=== PATIENT | female | born 1935 | race African-American/Black ===

== ENCOUNTER 2017-06-18 09:20 | Inpatient (IN) | payer MEDICARE, BC ==
[2017-06-18 10:34] LABS: ALT (SGPT) 16 U/L (8-55); AST (SGOT) 31 U/L (5-34); Albumin 3.2 g/dL (3.4-4.8); Alkaline Phosphatase 87 U/L (40-150); Anion Gap 17 mmol/L (10-20); BUN (Urea Nitrogen) 34 mg/dL (9.8-20.1); Bilirubin, Total 0.6 mg/dL (0.2-1.2); Calc. Creatinine Clearance 0 mL/min (70-130); Calcium 8.8 mg/dL (7.8-10.44); Carbon Dioxide 15 mmol/L (23-31); Chloride 110 mmol/L (98-107); Estimated GFR-MDRD 17; Glucose 96 mg/dL (83-110); Potassium 4.5 mmol/L (3.5-5.1); Protein, Total 7.2 g/dL (6.0-8.3); Sodium 137 mmol/L (136-145)
[2017-06-18 10:38] LABS: Hemoglobin 12.4 g/dL (12.0-16.0); Mean Corpuscular HGB CONC 30.4 g/dL (32.0-36.0); Mean Corpuscular Hemoglobin 26.7 pg (27.0-31.0); Mean Corpuscular Volume 87.7 fl (81.0-99.0); Mean Platelet Volume 8.4 fL (7.4-10.4); Platelet Count 148 thou/uL (130-400); RBC Distribution Width 13.4 % (11.5-14.5); Red Blood Cell (RBC) Count 4.66 mill/uL (4.20-5.40); White Blood Cell (WBC) Count 21.8 thou/uL (4.8-10.8)
[2017-06-18 10:48] LABS: Bacteria/HPF 4+ HPF (None Seen)
[2017-06-18 10:49] LABS: Pathc Cast-AUWi Flag 34.93 (0-2.49); Yeast-AUWi Flag 496.6 (0-25.0)
[2017-06-18 10:50] LABS: Bilirubin Small (Negative); Blood, Urine Large (Negative); Glucose, Urine (Dipstick) Negative (Negative); Leukocyte Large (Negative); Nitrite Negative (Negative); Protein, Urine (Dipstick) 100 mg/dL (Neg-Trace); Urobilinogen 0.2 mg/dL (0.2-1.0)
--- NOTE | 2017-06-18 10:51 | RAD ---
PORTABLE UPRIGHT FRONTAL CHEST RADIOGRAPH: Date: 06-18-17 Comparison: None. History: Renal insufficiency, gastroenteritis. FINDINGS: There is atherosclerotic calcification of the aorta arch. There is mild increased linear interstitial density with pulmonary hyperinflation. There is mild patchy opacity in both lung bases suggesting nonspecific volume loss or infiltrate and small bilateral pleural effusions. IMPRESSION: Mild specific bilateral lower lobe pulmonary parenchymal opacity and small bilateral pleural effusion s. No lobar consolidation or alveolar edema. POS: [facility]
[2017-06-18 10:52] LABS: Clarity Cloudy (Clear)
[2017-06-18 10:56] LABS: Band 25 % (5-11); Lymphocytes 2 % (21-51); MDiff Complete? YES; Metamyelocyte 12 % (0-0); Monocytes 1 % (0-10); Myelocyte 1 % (0-0); Neutrophil 59 % (42-75); PLT Morphology Comment Appears Adequate; Vacuoles SLIGHT
[2017-06-18 11:02] LABS: RBC/HPF GREATER THAN 50-TNTC HPF (0-3)
[2017-06-18 11:04] LABS: Hyaline Casts/LPF NONE SEEN LPF (0-3 Hyaline); Yeast-All Forms None Seen HPF (None Seen)
[2017-06-18 11:07] LABS: Crystals/HPF RARE CA OXALATE HPF (Negative)
--- NOTE | 2017-06-18 11:30 | CT ---
ABDOMEN AND PELVIS CT SCAN WITHOUT CONTRAST: HISTORY: An 82-year-old female with a history of abdominal pain with renal insufficiency and gastroenteritis w ith nausea, vomiting, and diarrhea. FINDINGS: Small bilateral pleural effusions and pleural-based parenchymal changes. The liver, gallbladder, agosto creas, spleen, and adrenal glands show no significant abnormality, as visualized. There is a moderat e sized left upper renal staghorn calculus with some mild to moderate dilatation of both right and le ft renal upper collecting systems. This staghorn calculus measures approximately 1.3 x 2.7 cm and is irregularly shaped. there is a right-sided ostomy, which is presumed to be a ureteral ileostomy. T here are some abnormally dilated small bowel loops, particularly in the mid abdomen and lower abdomen , evidence for small bowel obstruction. There is some associated wall thickening with possibly some additional component of enteritis. There is a very large, 2.8 x 3.9 cm in diameter, egg shaped ossif ication within the right lower quadrant, which appears to be within the bowel or within the ileal com ponent of the ureteral ileostomy or within some type of a neobladder. Extensive post surgical change s in the pelvis, consistent with prior cystectomy. There is some scattered minimal free intraperiton eal fluid, particularly in the right side of the abdomen. There is bilateral perirenal fat stranding and some patchy mesenteric fat stranding in the mid abdomen and moreso in the right lower quadrant. The terminal ileum appears not to be dilated. IMPRESSION: 1. Evidence for abnormally dilated small bowel with some minimal wall thickening, evidence for some small bowel obstruction, with nondilated terminal ileum seen. 2. Wall thickening could suggest, in addition, some enteritis. 3. Large, egg shaped ossification within the right lower quadrant, which appears to be within either bowel or within part of the ureteral ileostomy or within some type of a neobladder. 4. Minimal ascites, moreso on the right side. 5. Scattered fat stranding, particularly in the perirenal regions and mid and lower abdomen, again s omewhat more prominent on the right side of the abdomen and right lower quadrant. 6. Moderate dilatation of both right and left upper renal collecting systems. 7. Left upper collecting system staghorn calculus. 8. Bilateral pleural effusions and pleural-based parenchymal changes. Findings were discussed with Dr. Clarke by phone at approximately 10:40 a.m. GIOVANNY LOCKE
[2017-06-18 13:15] VITALS: BMI 23.8
[2017-06-18] MEDS ORDERED: Dextrose 5 % And 0.9 % NaCl 1,000 ML IV SCH (13:15)
[2017-06-18] MEDS ORDERED: FLU VACC TS2017-18 (>65YR) 0.5 ML SYRINGE IM ONE (13:45)
[2017-06-18] MEDS ORDERED: Lorazepam 2 MG/ML VIAL SLOW IVP PRN (13:54)
[2017-06-18] MEDS ORDERED: PIPERACILLIN IVPB PRN (14:20)
[2017-06-18] MEDS ORDERED: TAZOBACTAM IVPB PRN (14:20)
[2017-06-18] MEDS ORDERED: LEVOFLOXACIN IVPB PRN (14:20)
--- NOTE | 2017-06-18 14:35 | HP ---
DATE OF ADMISSION: 06/18/2017 CHIEF COMPLAINT: Abdominal pain. HISTORY OF PRESENT ILLNESS: This is an 82-year-old -[place] female. She is living at her [facility] independently. She developed a sudden onset of abdominal pain on Friday and she went to [facility] where she was admitted over there by her primary care physician, Dr. Yusuf, and she was started on IV antibiotics and Zosyn. She was diagnosed with urinary tract infection. Patient has urostomy bag where the urine was collected and was infected at that time and had elevated white count of 25,000 o alejandrina there and she was started on Zosyn antibiotic. Patient was having progressive persistent nausea and vomiting, unable to control, associated with some loose stools. The pain was 9/10 in intensity. According to the patient, it was on the mid epigastrium, so she was transferred to the [facility] for further evaluation. When the patient arrived in the ER, she had a CT of the abdomen which showe d an evidence of a small-bowel obstruction with possible mass-like lesion on the CT more on the left lower quadrant. Right lower quadrant which was egg-shaped opacification, which appeared more like a ureteral stone and she also had dilated small bowel with minimal wall thickening, so General Surgery was consulted and the patient was started on NG tube with intermittent suction. PAST MEDICAL HISTORY: 1. Hypertension. 2. History of bladder cancer. PAST SURGICAL HISTORY: 1. Hysterectomy. 2. History of bladder surgery in 1995. 3. History of hysterectomy. SOCIAL HISTORY: Patient was a known smoker many years ago. No history of alcohol, no history of ill icit drug use. FAMILY HISTORY: Sister had breast cancer. REVIEW OF SYSTEMS: All 12 systems are reviewed with the patient thoroughly and found to be negative at this time. Systems reviewed are HEENT, CVS, VISUAL STYLIST, respiratory, GI, , musculoskeletal, skin, inte gumentary, psychiatry. The following complete review of systems was negative, unless otherwise menti oned in the HPI or below: Constitutional: Weight loss or gain, sense of well-being, ability to cond uct usual activities, exercise tolerance. Skin/Breast: Rash, itching, changes in hair growth or los s, nail changes, breast lumps, tenderness, swelling, nipple discharge. Eyes: Vision, double vision, tearing, blind spots, pain. ENT/Mouth: Headaches (location, time of onset, duration, precipitating factors), vertigo, lightheadedness, injury. Vision, double vision, tearing, blind spots, pain, nose bleeding, colds, obstruction, discharge, dental difficulties, gingival bleeding, dentures, neck stiff ness, pain, tenderness, masses in thyroid or other areas Cardiovascular: Precordial pain, substernal distress, palpitations, syncope, dyspnea on exertion, orthopnea, nocturnal paroxysmal dyspnea, edema , cyanosis, hypertension, heart murmurs, varicosities, phlebitis, claudication. Respiratory: Pain, shortness of breath, wheezing, stridor, cough, hemoptysis, fever or night sweats. Gastrointestinal: Poor appetite, dysphagia, indigestion, abdominal pain, heartburn, eructation, nausea, vomiting, balaji temesis, jaundice, constipation, or diarrhea, abnormal stools (delmy-colored, tarry, bloody, greasy, f oul smelling), flatulence, hemorrhoids, recent changes in bowel habits. Genitourinary: Urgency, edwin quency, dysuria, nocturia, hematuria, polyuria, oliguria, unusual (or change in) color of urine, ston es, hesitancy, change in size of stream, dribbling, acute retention or incontinence, libido, potency. Musculoskeletal: Pain, swelling, redness or heat of muscles or joints, limitation, of motion, musc ular weakness, atrophy, cramps. Neurologic/Psychiatric: Convulsions, paralyses, tremor, incoordination, parasthesias, difficulties w ith memory of speech, sensory or motor disturbances, or muscular coordination (ataxia, tremor), emoti onal problems, anxiety, depression, previous psychiatric care, unusual perceptions, hallucinations. Allergy/Immunologic: Skin rash, anemia, bleeding tendency, polydipsia, polyuria, intolerance to heat or cold. ALLERGIES: No known drug allergies. HOME MEDICATIONS: 1. Amlodipine-benazepril. 2. Latanoprost. 3. Timolol 0.5% one drop each eye twice a day. PHYSICAL EXAMINATION: VITAL SIGNS: Blood pressures 128/69, heart rate is 95, respiratory rate is 18, saturations 94%. GENERAL: The patient is moderately built and moderately nourished. She does not appear to be in acu te distress at this time. Alert, oriented x3. HEENT: Atraumatic, normocephalic. PERRLA. Extraocular movements were intact. Oral mucosa pink and moist. CARDIOVASCULAR: S1, S2 normal. No murmurs, rubs or gallops. LUNGS: Bilateral air entry was equal. No wheezing, no crackles. ABDOMEN: Distended, nontender, no guarding, no rebound tenderness. Bowel sounds were reduced. MUSCULOSKELETAL: No calf tenderness. No pedal edema. EXTREMITIES: No joint tenderness, no joint swelling. SKIN: No cyanosis, no erythema, no rash, no pallor. CRANIAL NERVE SYSTEM: Cranial nerves examination II-XII intact. No focal deficits are noted. LABORATORY DATA: WBC 21.8, hemoglobin 12.4, hematocrit is 40.9, platelets are 148. Sodium 137, pota ssium 4.5, chloride is 110, BUN is 34, creatinine is 3.10, blood sugar is 96. Lactic acid is 4.4, T 31, ALT 16. ASSESSMENT: 1. Acute small-bowel obstruction. 2. Acute urinary tract infection with a urostomy bag. 3. Acute kidney injury. 4. Severe sepsis. 5. Right lower quadrant mass. PLAN: 1. Plan is to start the patient on IV antibiotics with levofloxacin, Zosyn, and to cover Pseudomonas . We will wait for the urine cultures and blood cultures. 2. We will start the patient on IV fluids at 100 mL hour and closely monitor. The patient had eleva lincoln lactic acid. We will repeat the lactic acid level to look for improvement. 3. Patient has evidence of a small-bowel obstruction. NG tube has been placed after requesting the ER physician and the General Surgery has been consulted. Oral contrast study has been ordered by Gen eral Surgery. We will closely monitor for any worsening obstruction. 4. The patient has right lower quadrant mass. We will closely monitor. Urology has been consulted t o rule out any evidence of ureteric calculi. We will follow with the recommendations at this time. The patient has worsening renal functions. We will start the patient on IV fluids and look for impro vement in the renal functions. We will plan to consult Nephrology. 5. DVT prophylaxis, Lovenox 30 mg subcutaneously daily. I spent 75 minutes with this patient.
[2017-06-18] MEDS: Ondansetron HCl/PF 4 MG/2 ML Vial IVP PRN (14:59)
[2017-06-18] MEDS: Sodium Chloride 0.9% 1,000 ML IV SCH (15:05)
[2017-06-18] MEDS: Piperacillin/Tazobactam 4.5 GM in Sodium Chloride 0.9% 100 ML IVPB SCH ×2 (15:18→23:03)
--- NOTE | 2017-06-18 16:12 | CON ---
DATE OF CONSULTATION: 06/18/2017 CONSULTING PHYSICIAN: Dr. Laure Jensen, ER physician. HISTORY OF PRESENT ILLNESS: Ms. Dorota Lo is an 82-year-old female with a history of bladder ca ncer, status post cystectomy and urostomy. Per patient, she had developed sudden onset of abdominal pain on Friday and was admitted to the hospital in [place] and started on IV antibiotics for urinary tract infection. Patient had persistent nausea and vomiting that was associated with some loose sto ols. She developed 9/10 mid epigastric pain and was transferred to [facility] for further evaluat ion. In the emergency room, she had a CT of the abdomen and pelvis, which showed dilated small bowel with minimal wall thickening as well as then large egg-shaped ossification in the right lower quadra nt, but this was unable to be differentiated as to whether or not it was in the ileostomy or the binh l. Surgical team was consulted for small-bowel obstruction and this lesion. Upon our evaluation, th e patient states that her abdominal pain has improved. She states that she has not had any episodes of nausea or vomiting since she has been in our emergency room. Last bowel movement was Friday night , she has not passed any gas today. An NG tube was placed at bedside by Dr. Santos. The patient tole rated this well. ALLERGIES: No known allergies. PAST MEDICAL HISTORY: Chronic medical illnesses, history of hypertension, and glaucoma as well as hi story of bladder cancer. PAST SURGICAL HISTORY: Cystectomy, urostomy placement, hysterectomy. SOCIAL HISTORY: The patient lives independently. She denies tobacco, alcohol, or illicit drug use. FAMILY HISTORY: Noncontributory in this age patient. REVIEW OF SYSTEMS: Negative except as indicated in the HPI. PHYSICAL EXAMINATION: VITAL SIGNS: Include blood pressure 138/54, pulse 92, respirations 16, temperature 98.2, pain 0, and O2 sat 97% on room air. GENERAL: Elderly appearing female resting in bed in no acute distress. HEAD: Normocephalic, atraumatic. EYES: Pupils are PERRLA. Extraocular movements are intact. NECK: Supple. Trachea is midline. Mucous membranes are dry. CHEST: Normal work of breathing, symmetric rise. LUNGS: Clear to auscultation bilaterally. CARDIOVASCULAR: Regular rate and rhythm, no obvious murmurs, rubs, or gallops. GASTROINTESTINAL: Soft with mild tenderness. There is a urostomy bag in place. There is no guardin g, rigidity, or signs of peritonitis. BACK: Being within normal limits. MUSCULOSKELETAL: Bilateral upper extremities and bilateral lower extremities within normal limits. Pulses are 2+ bilaterally. NEUROLOGIC: GCS of 15. No focal deficit is noted. LABORATORY DATA: WBC 21.8, hemoglobin 12.4, hematocrit 40.9, platelet count of 148. Sodium 137, pot assium 4.5, chloride 110, carbon dioxide 15, BUN 34, creatinine 3.10, glucose 96. Initial lactic aci d 4.4, repeat lactic acid 4.0, AST and ALT within normal limits. EKG with sinus rhythm and no eviden ce of STEMI. RADIOGRAPHIC FINDINGS: Chest x-ray is read as bilateral lower lobe opacities and bilateral effusions . CT of the abdomen and pelvis was read by Radiology is having evidence for abnormally dilated small bowel with minimal wall thickening in a nondilated terminal ileum, was seen a large egg-shaped ossif ication within the right lower quadrant ,which may be within the bowel or within part of the ureteral ileostomy, minimal ascites on the right, scattered fat stranding in the perirenal and mid and lower abdomen, more prominent on the right and right lower quadrant, moderate dilation of both right and le ft upper renal collecting system. Left upper collecting system staghorn calculus and bilateral pleur al effusions. ASSESSMENT: 1. Abdominal pain. 2. Possible small-bowel obstruction. 3. Abnormal ossification in the right lower quadrant. 4. History of bladder cancer, status post cystectomy and urostomy. PLAN: NG tube has been placed by Dr. Santos at bedside. We will administer oral contrast through NG tube and a repeat CT scan was delayed, images to try to differentiate the location of this large ossi fication. Bowel rest and gentle fluid IV hydration. Serial abdominal exams. There is no indication for surgical intervention at this time. Continue conservative management. This patient was seen an d evaluated with Dr. Santos and plan for treatment was discussed with the patient. All questions were answered at the time of this dictation.
--- NOTE | 2017-06-18 17:36 | CON ---
DATE OF CONSULTATION: 06/18/2017 CONSULTING PHYSICIAN: Daniel Grant MD REASON FOR CONSULTATION: Acute kidney injury. REASON FOR ADMISSION: Abdominal pain, nausea, and vomiting. HISTORY OF PRESENT ILLNESS: This is an 82-year-old female with history of hypertension, bladder cancer, and chronic kidney disease, came to the hospital with above complaints and was found to have elevated creatinine. Nephrology is consulted. The patient is having nausea, vomiting, and was found to have small- bowel obstruction and will be treated conservatively. The patient is feeling slightly better. No chest pain or palpitation. PAST MEDICAL HISTORY: Positive for hypertension and bladder cancer. PAST SURGICAL HISTORY: Hysterectomy, bladder surgery. HOME MEDICATIONS: Amlodipine and benazepril, latanoprost, and timolol. ALLERGIES: No known drug allergies. SOCIAL HISTORY: No smoking, alcohol, or illicit drug abuse. FAMILY HISTORY: No history of any kidney disease. REVIEW OF SYSTEMS: The following complete review of systems was negative, unless otherwise mentioned in the HPI or below: Constitutional: Weight loss or gain, ability to conduct usual activities. Skin: Rash, itching. Eyes: Double vision, pain. ENT/Mouth: Nose bleeding, neck stiffness, pain, tenderness. Cardiovascular: Palpitations, dyspnea on exertion, orthopnea. Respiratory: Shortness of breath, wheezing, cough, hemoptysis, fever or night sweats. Gastrointestinal: Poor appetite, abdominal pain, heartburn, nausea, vomiting, constipation, or diarrhea. Genitourinary: Urgency, frequency, dysuria, nocturia. Musculoskeletal: Pain, swelling. Neurologic/Psychiatric: Anxiety, depression. Allergy/Immunologic: Skin rash, bleeding tendency. PHYSICAL EXAMINATION: GENERAL: This is a well-built female, in no apparent distress. VITAL SIGNS: Temperature 98.2, pulse 94, respiratory rate 18, blood pressure 128/69. Musculoskeletal : No tenderness, No edema HEENT: Atraumatic normocephalic Neck: Supple Cardiovascular: S1S2 heard, Rate and rhythm regular Respiratory: Clear to auscultation Gastrointestinal: Abdomen is soft Dermatologic : No skin rash Neurologic: Alert and awake and oriented X3 No focal neurologic deficits. Moving all the extremities. Psychiatric: Mood and affect normal LABORATORY DATA: Potassium is 4.5, BUN is 34, and creatinine is 3.1. ASSESSMENT AND PLAN: 1. Acute kidney injury on chronic kidney disease, most likely from volume depletion. Agree with hydration and renally dose all the medications. Avoid nephrotoxins. Continue antibiotics and supportive care. 2. Staghorn calculus with dilated collecting system seen in the CT. We will consult Urology. 3. Acidosis, most likely chronic secondary to the urostomy. 4. Lactic acidosis. Continue supportive care. 5. Hypoalbuminemia. 6. Leukocytosis. 7. Continue supportive care. Continue on IV fluids. Rule out infection. Continue antibiotics. We will consult Urology. Thank you for the consult. SUSANNA
[2017-06-18] MEDS ORDERED: Famotidine 40 MG/4 ML VIAL SLOW IVP SCH (21:00)
[2017-06-18] MEDS ORDERED: Famotidine/PF 20 mg/2ml Vial SLOW IVP SCH (21:00)
--- NOTE | 2017-06-18 22:01 | PRG ---
DATE OF SERVICE: 06/18/2017 SUBJECTIVE: The patient is currently on the medicine floor. The patient warrants consultation for p ossible small-bowel obstruction and a calcific mass noted in her abdomen. The patient has just retur yarelis from a repeat delayed CT. We are awaiting the results from Radiology at this time. Otherwise, t he patient states that her pain is controlled and has little nausea. The patient did say that she du d 2-3 large bouts of emesis earlier today. She states that she has not passed flatus yet. PHYSICAL EXAMINATION: VITAL SIGNS: Temperature is 98.2, heart rate 95, blood pressure 128/69, respirations 18, oxygen satu ration 94% on room air. ABDOMEN: Soft and flat with very minimal tenderness and bowel sounds are hypoactive. ASSESSMENT: 1. Abdominal pain. 2. Possible small-bowel obstruction. 3. Calcified mass in the right lower quadrant. PLAN: Will be to continue intermittent suction, pain control, IV hydration and await CT interpretati on and then continue surgical plan at that time.
--- NOTE | 2017-06-18 22:28 | CON ---
DATE OF CONSULTATION: 06/18/2017 REASON FOR CONSULTATION: Prior history of bladder cancer. HISTORY OF PRESENT ILLNESS: Ms. Lo is an 82-year-old female followed by Dr. Herrera in [place] who has a history of bladder cancer resulting in cystectomy and ileal conduit urinary diversion in 1998. She presented to the hospital today with complaints of nausea, vomiting, and abdominal pain. She was initially evaluated in [place] [facility]. She was transferred to [facility] in [place]. CT scan in the emergency room demonstrated a left-sided staghorn calculus, dilated loops of small bowel and a large calcification intraabdominally. There is some mild hydronephrosis bilaterally consistent with her urinary diversion via ileal conduit. A urine culture was positive when she was seen at the ER in [place], but it was taken from her ileostomy bag. PAST MEDICAL HISTORY: Bladder cancer, hypertension. PAST SURGICAL HISTORY: Cystectomy with ileal conduit urinary diversion in 1998 , hysterectomy. SOCIAL HISTORY: She is an ex-smoker. Denies excessive alcohol use. FAMILY HISTORY: Noncontributory. REVIEW OF SYSTEMS: Respiratory: No shortness of breath. Cardiovascular: No chest pain or palpitations. Gastrointestinal: Abdominal pain with nausea and vomiting as mentioned in the history of present illness. Genitourinary: Please see history of present illness. Neurologic: No history of stroke. ALLERGIES: No known drug allergies. MEDICATIONS AT HOME: Amlodipine, latanoprost, timolol eyedrops. PHYSICAL EXAMINATION: GENERAL: She is awake and alert. She has an NG tube in place at this time. VITAL SIGNS: Blood pressure 132/82, respiratory rate 18, heart rate 94. GENERAL: She is a well-nourished, does not appear to be in any acute distress. HEENT: She has a nasogastric tube in place at this time. CARDIOVASCULAR: Regular rate and rhythm. No murmurs. ABDOMEN: Distended. There are no peritoneal signs. Ileal conduit appears healthy. LABORATORY DATA: Creatinine 3.1. White blood cell count 21.8, hemoglobin 12.4 , hematocrit 40.9. IMPRESSION: Ms. Lo is an 82-year-old female who receives her urologic care from Dr. Herrera in [place] who is status post cystectomy and ileal conduit urinary diversion almost 20 years ago. As such, it is unlikely she has persistent or recurrent bladder cancer based on a 20 year history of this disease. She does have calcifications, one in the left kidney. The calcification in the abdomen is likely a large stone in her ileal conduit. She has the expected amount of hydroureteronephrosis seen in patients with ileal conduit. I am unsure of what her baseline creatinine is. She is scheduled to undergo a CT scan later to confirm that the large calcification of the abdomen is not related to her bowel obstruction. I suspect it is within the ileal conduit. This can be managed as an outpatient and possibly endoscopically through the stoma. If she would go to the operating room for a bowel obstruction, it could also be removed by making a small incision in her ileal conduit removing the stone and then closing the ileal conduit. I am in agreement with her current recommendations, which is conservative management with NG tube drainage, hydration and time. There is no indication for emergent urologic intervention. I believe she is followed by Urologist in [place]. SUSANNA
[2017-06-18] MEDS: Piperacillin/Tazobactam 2.25 GM in Sodium Chloride 0.9% 100 ML IVPB SCH (22:52)
[2017-06-19] MEDS: Sodium Chloride 0.9% 1,000 ML IV SCH ×3 (02:34→20:48)
[2017-06-19] MEDS: Piperacillin/Tazobactam 2.25 GM in Sodium Chloride 0.9% 100 ML IVPB SCH ×4 (04:05→20:49)
[2017-06-19 04:42] LABS: Anion Gap 15 mmol/L (10-20); BUN (Urea Nitrogen) 36 mg/dL (9.8-20.1); Calc. Creatinine Clearance 22 mL/min (70-130); Calcium 8.5 mg/dL (7.8-10.44); Carbon Dioxide 19 mmol/L (23-31); Chloride 112 mmol/L (98-107); Estimated GFR-MDRD 27; Glucose 65 mg/dL (83-110); Potassium 4.5 mmol/L (3.5-5.1); Sodium 141 mmol/L (136-145)
[2017-06-19 05:30] LABS: Band 30 % (5-11); Burr Cells MODERATE= 6-15 cells (100X) (0-1/hpf); Hemoglobin 11.1 g/dL (12.0-16.0); Hypochromia SLIGHT = 6-15 cells (100X) (0-5/hpf); Lymphocytes 3 % (21-51); MDiff Complete? YES; Mean Corpuscular HGB CONC 31.3 g/dL (32.0-36.0); Mean Corpuscular Hemoglobin 26.9 pg (27.0-31.0); Mean Corpuscular Volume 85.9 fl (81.0-99.0); Mean Platelet Volume 9.3 fL (7.4-10.4); Metamyelocyte 5 % (0-0); Monocytes 4 % (0-10); Neutrophil 58 % (42-75); PLT Morphology Comment Appears Decreased; Platelet Count 114 thou/uL (130-400); RBC Distribution Width 13.2 % (11.5-14.5); Red Blood Cell (RBC) Count 4.11 mill/uL (4.20-5.40); White Blood Cell (WBC) Count 27.3 thou/uL (4.8-10.8)
--- NOTE | 2017-06-19 07:31 | CT ---
CT ABDOMEN NONCONTRAST CT PELVIS NONCONTRAST: Date: 06/18/17 HISTORY: 82-year-old female with general abdominal pain, nausea, emesis, and diarrhea. A large calcification w as found within the right pelvic inlet on CT earlier today on 06/18/17 at 1014 hours. TECHNIQUE: Water soluble oral contrast was given, and CT was performed at 1611 hours, then repeated at 2035 hour s, and finally at 2344 hours, to allow the oral contrast material to reach the calcific mass. FINDINGS: Unfortunately, the oral contrast material does not reach the large, smoothly circumscribed, ovoid 40 x 25 x 25 mm calcification within the right lower quadrant of the abdominal cavity at the pelvic inle t. As previously stated, there is much fat stranding within the right lower quadrant of the abdominal cavity. There is an ostomy at the right lower quadrant. There are multiple surgical clips along the bilateral iliac chains. There is mild bilateral hydronephrosis. The oral contrast material has not pr ogressed between the 2035 hours study and 2344 hours study. The patient has reportedly been on suctio n of the nasogastric tube. Again noted is the staghorn calculus in the left renal upper pole. Small b ilateral pleural effusions. Dilated small bowel loops. Nondilated terminal ileum. IMPRESSION: 1. Large, 40 mm, calcification within the right lower quadrant abdominal cavity at the pelvic inlet. It is uncertain whether this represents a large calculus within an ileal pouch neobladder, or repres ents gallstone ileus, causing mechanical distal small bowel obstruction. 2. Either way, the dilated small bowel loops represent evidence for small bowel obstruction. 3. Right lower quadrant ostomy. 4. Mild bilateral hydronephrosis. 5. Small bilateral pleural effusions. 6. Evidence for previous iliac chain lymph node dissection. POS: [facility]
[2017-06-19] MEDS ORDERED: Piperacillin/Tazobactam 4.5 GM in Sodium Chloride 0.9% 100 ML IVPB SCH (09:00)
--- NOTE | 2017-06-19 10:07 | RAD ---
KUB: Date: 06/19/17 HISTORY: Small bowel obstruction. COMPARISON: CT examination performed yesterday. FINDINGS: A staghorn type calculus involving the upper pole of the left kidney is noted. There is an ostomy pre sent in the right lower quadrant. There is a calculus in the right lower quadrant that has the appear ance of a bladder-type calculus and measures 3.3 cm in size. There are postop prostatectomy changes. The dilatation to the small bowel noted on the CT examination is difficult to appreciate other than s ome of the proximal small bowel and does appear to be slightly distended. IMPRESSION: Mild distention of some of the proximal small bowel loops. This may be slightly less pronounced than on the prior CT study. POS: REE
[2017-06-19] MEDS ORDERED: GASTROGRAFIN 30 ML BOT ONE (10:16)
[2017-06-19] MEDS: Enoxaparin Sodium 30 MG/0.3 ML SYRINGE SC SCH (13:08)
--- NOTE | 2017-06-19 14:37 | PDOC.PN ---
- Subjective Encounter Start Date: 06/19/17 Encounter Start Time: 10:00 Patient is seen today, Alert and oriented, She is On NG tube with intermittant suction, She is getting hard to find viens for IV line. - Objective Resuscitation Status: Resuscitation Status FULL:Full Resuscitation MAR Reviewed: Yes Vital Signs & Weight: Vital Signs (12 hours) Temp Pulse Resp BP Pulse Ox 06/19/17 12:00 98.4 F 97 24 H 138/62 99 06/19/17 08:00 98.5 F 95 24 H 123/75 96 06/19/17 04:40 99.1 F 101 H 22 H 124/66 98 Weight Admit Weight 152 lb Weight 152 lb I&O: 06/18/17 06/19/17 06/20/17 06:59 06:59 06:59 Intake Total 450 Output Total 800 Balance -350 Result Diagrams: 06/19/17 03:33 06/19/17 03:33 Radiology Reviewed by me: Yes Phys Exam - Physical Examination HEENT: PERRLA, moist MMs Neck: no nodes, no JVD Respiratory: no wheezing, no rales Cardiovascular: RRR, no significant murmur Diminished BS, Non tender. 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 Will plan to change the Neobladder this admission, (2) SBO (small bowel obstruction) Code(s): K56.609 - UNSP INTESTNL OBST, UNSP TO PARTIAL VERSUS COMPLETE OBST Status: Acute Comment: Will continue with NG tube, general Surgery is on Board, no surgery planned yet. (3) Other septicemia due to Gram-negative organism Code(s): A41.59 - OTHER GRAM-NEGATIVE SEPSIS Status: Acute Comment: PT is on levo and Zosyn, source of infection likely urine. Waiting for senstitvitis, WBC worseing noted. 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 - Plan cont current plan of care, continue antibiotics, PT/OT, rn social services, incentive spirometry, DVT proph w/lovenox * . - Discharge Day Encounter end time: 10:35 Review of Systems - Review of Systems Constitutional: negative: fever, chills, sweats, weakness, malaise, other Eyes: negative: Pain, Vision Change, Conjunctivae Inflammation, Eyelid Inflammation, Redness, Other ENT: negative: Ear Pain, Ear Discharge, Nose Pain, Nose Discharge, Nose Congestion, Mouth Pain, Mouth Swelling, Throat Pain, Throat Swelling, Other Respiratory: negative: Cough, Dry, Shortness of Breath, Hemoptysis, SOB with Excertion, Pleuritic Pain, Sputum, Wheezing Cardiovascular: negative: chest pain, palpitations, orthopnea, paroxysmal nocturnal dyspnea, edema, light headedness, other Gastrointestinal: Nausea, Abdominal Pain Genitourinary: negative: Dysuria, Frequency, Incontinence, Hematuria, Retention , Other Musculoskeletal: negative: Neck Pain, Shoulder Pain, Arm Pain, Back Pain, Hand Pain, Leg Pain, Foot Pain, Other Skin: negative: Rash, Lesions, Brad, Bruising, Other - Medications/Allergies Allergies/Adverse Reactions: Allergies Allergy/AdvReac Type Severity Reaction Status Date / Time No Allergy Information Allergy Verified 06/17/17 14:51 Available Medications: Current Medications Enoxaparin Sodium (Lovenox) 30 mg SC 0900 [facility] Last Admin: 06/19/17 13:08 Dose: 30 mg Famotidine (Pepcid) 20 mg SLOW IVP 2100 [facility] Last Admin: 06/18/17 22:51 Dose: 20 mg Sodium Chloride (Normal Saline 0.9%) 1,000 mls @ 100 mls/hr IV .Q10H [facility] Last Admin: 06/19/17 08:00 Dose: 1,000 mls Levofloxacin 500 mg/ Device 100 mls @ 100 mls/hr IVPB Q2D@1400 [facility] Piperacillin Sod/Tazobactam (Sod 2.25 gm/ Sodium Chloride) 100 mls @ 200 mls/ hr IVPB 0400,1000,1600,2200 [facility] Last Admin: 06/19/17 10:00 Dose: Not Given Lorazepam (Ativan) 0.5 mg SLOW IVP Q6H PRN PRN Reason: Anxiety/Agitation Last Admin: 06/18/17 15:12 Dose: 0.5 mg Miscellaneous Medication (Pharmacy To Dose) 0 each IVPB PRN PRN PRN Reason: RENAL DOSING Ondansetron HCl (Zofran) 4 mg IVP Q6H PRN PRN Reason: Nausea/Vomiting Last Admin: 06/18/17 14:59 Dose: 4 mg Sodium Chloride (Flush - Normal Saline) 10 ml IVF Q12HR [facility] Last Admin: 06/19/17 10:45 Dose: Not Given Sodium Chloride (Flush - Normal Saline) 10 ml IVF PRN PRN PRN Reason: Saline Flush
--- NOTE | 2017-06-19 14:57 | RAD ---
SMALL BOWEL FOLLOW THROUGH: Date: 06/19/17 COMPARISON: None. HISTORY: Evaluate small bowel obstruction. FINDINGS: The patient was administered Gastrografin via a nasogastric tube. The initial 15 minutes after admini stration demonstrates contrast media within the stomach and dilated loops of small bowel in the mid a bdomen. At 30 minutes, there is persistent contrast media within the stomach and proximal dilated sma ll bowel. At 45 minutes, contrast media has begun to extend beyond the proximal dilated small bowel a nd extends into additional dilated small bowel within the left mid abdomen. At 1 hour, contrast media fills numerous markedly dilated loops of small bowel in the pelvis, the mid abdomen, and the left ab domen. A 1.5 hours, there is little change when compared to the 1 hour image, with persistent contras t media throughout numerous dilated small bowel throughout the abdomen/pelvis. However, at 2.5 hours, the contrast media has reached the colon, arguing against complete small bowel obstruction and sugge sting significant partial small bowel obstruction. There are numerous clips in the pelvis. There is a lamellated prominent right lower quadrant calcific ation measuring 3.2 cm, better evaluated on recent CT. IMPRESSION: Delayed transit time of contrast media from stomach to distal colon, suggesting partial small bowel o bstruction. Multiple prominent dilated loops of small bowel seen throughout abdomen/pelvis. Recommend continued follow-up imaging via KUB on 06/20/17 to assess for contrast transit. POS: REE
--- NOTE | 2017-06-19 18:12 | PRG ---
DATE OF SERVICE: 06/19/2017 ATTENDING PHYSICIAN: Dr. Ilya Santos. SUBJECTIVE: Mrs. Lo is an 82-year-old female for which Surgery was consulted yesterday for conc vaibhav for a small-bowel obstruction. The patient was evaluated in the emergency room and found to have dilated loops of small bowel with a large egg-shaped ossification in the right lower quadrant. The patient has a history of bladder cancer resulting in cystectomy with an ileal conduit urinary diversi on. It was unclear whether or not this calcification was in the bowel or in the ileal conduit. Urol ogy and Nephrology were both consulted as well. She had an NG tube placed at bedside by Dr. Santos. She was scheduled for a small bowel follow through this morning. The patient was not in the hospital room on rounds this morning and so the examination took place in the early afternoon after her small bowel follow through has been completed. On exam today, the patient is alert and oriented. She has an NG tube in place that is set to suction . It is produced approximately 700 mL of bilious fluid since this morning and the patient reports no complaints on exam. OBJECTIVE: VITAL SIGNS: BP 124/66, pulse 101, temperature 99.1, respirations 22, O2 sat 98% on room air. GENERAL: An elderly-appearing adult female in no acute distress. RESPIRATORY: Breath sounds are clear to auscultation bilaterally with normal effort. CARDIOVASCULAR: She has regular rate and rhythm with no murmurs, gallops or rubs. ABDOMEN: Her abdomen is soft. She has a urostomy bag in place. EXTREMITIES: The patient is moving all extremities. She is neurovascularly intact x4. NEUROLOGIC: The patient's GCS is 15. She has no focal deficits. LABORATORY DATA: Hematology: WBC is 27.3, hemoglobin 11.1, hematocrit 35.3, platelets 114. [place] ry: Sodium 141, potassium 4.5, chloride 112, bicarbonate 19, BUN 36, creatinine 2.10, glucose 65, ca lcium 8.5. IMAGING: Delayed transit of contrast media from stomach to distal colon, suggesting partial small-gagandeep wel obstruction. Multiple prominent dilated loops of small bowel seen throughout the abdomen/pelvis. Recommend continued followup imaging via KUB on 06/20/2017 to assess for contrast transit. ASSESSMENT: 1. Possible partial small-bowel obstruction. 2. Abnormal ossification in the right lower quadrant, likely residing in her ileal conduit. 3. Acute kidney injury on chronic kidney disease. 4. Lactic acidosis. 5. Leukocytosis. 6. History of bladder cancer, status post cystectomy and urostomy. PLAN: 1. There is no surgical indication for this patient at this time. 2. We will clamp her NG tube and do a trial of clear liquids. If the patient is able to tolerate cl ears, we will remove the NG tube tomorrow. If she becomes symptomatic with nausea and vomiting, we w ill unclamp the NG tube and put it back to suction. 3. Lovenox for DVT prophylaxis. 4. IV Pepcid for gastritis prophylaxis. This patient was seen and examined with Dr. Ilya Santos on rounds, who agrees with the assessment a nd plan.
[2017-06-19] MEDS: Famotidine 40 MG/4 ML VIAL SLOW IVP SCH (20:48)
--- NOTE | 2017-06-20 00:37 | PRG ---
DATE OF SERVICE: 06/18/2017 SUBJECTIVE: No new complaints. PHYSICAL EXAMINATION: VITAL SIGNS: Blood pressure 138/62, temperature 98.4, respiratory rate 24, O2 sat 99% on room air, p ulse 97. ABDOMEN: Soft, no peritoneal signs. LABORATORY DATA: Creatinine 2.1 (3.1 on 06/18/2017). IMPRESSION: Ms. Lo has had a small bowel follow through study. It appears that she has a parti al small-bowel obstruction. No change with regard to the urinary tract. She has a left staghorn katty culus and a probable calculus in the ileal conduit itself. There is a normal and typical amount of u rinary tract dilatation seen in patients with ileal conduits. Her creatinine is improving. RECOMMENDATIONS: No new recommendations at this time.
[2017-06-20] MEDS: Acetaminophen 325 MG TAB PO PRN (03:09)
[2017-06-20] MEDS: Piperacillin/Tazobactam 2.25 GM in Sodium Chloride 0.9% 100 ML IVPB SCH ×2 (03:12→09:53)
[2017-06-20 05:38] LABS: Anion Gap 13 mmol/L (10-20); BUN (Urea Nitrogen) 30 mg/dL (9.8-20.1); Calc. Creatinine Clearance 36 mL/min (70-130); Calcium 8.6 mg/dL (7.8-10.44); Carbon Dioxide 21 mmol/L (23-31); Chloride 118 mmol/L (98-107); Estimated GFR-MDRD 48; Glucose 97 mg/dL (83-110); Potassium 3.3 mmol/L (3.5-5.1); Sodium 149 mmol/L (136-145)
[2017-06-20 05:41] LABS: Band 19 % (5-11); Hemoglobin 11.4 g/dL (12.0-16.0); Lymphocytes 3 % (21-51); MDiff Complete? YES; Mean Corpuscular HGB CONC 31.6 g/dL (32.0-36.0); Mean Corpuscular Hemoglobin 26.1 pg (27.0-31.0); Mean Corpuscular Volume 82.6 fl (81.0-99.0); Mean Platelet Volume 9.4 fL (7.4-10.4); Monocytes 2 % (0-10); Neutrophil 76 % (42-75); PLT Morphology Comment Appears Decreased; Platelet Count 106 thou/uL (130-400); RBC Distribution Width 13.3 % (11.5-14.5); Red Blood Cell (RBC) Count 4.36 mill/uL (4.20-5.40); White Blood Cell (WBC) Count 32.2 thou/uL (4.8-10.8)
--- NOTE | 2017-06-20 08:46 | PRG ---
DATE OF SERVICE: 06/19/2017 SUBJECTIVE: Patient was seen and examined at bedside and overnight events noted. Patient denies any shortness of breath or chest pain or palpitation. No history of nausea or vomitin g or diarrhea or fever or chills or cramps. OBJECTIVE: GENERAL: This is a well-built male, in no apparent distress. VITAL SIGNS: Temperature 98.4, pulse 97, respiratory rate 18, blood pressure 138/62. HEENT: Atraumatic, normocephalic. Oral mucosa is moist NECK: Supple. CARDIOVASCULAR: S1 and S2 heard. Rate and rhythm regular. RESPIRATORY: Clear to auscultation. GASTROINTESTINAL: Abdomen is soft. MUSCULOSKELETAL: No tenderness. No edema. DERMATOLOGIC: No skin rash. NEUROLOGIC: Alert and awake and oriented X3, No focal neurologic deficits. Moving all the extremitie s. PSYCHIATRIC: Mood and affect normal. LABORATORY DATA: Potassium 4.5, BUN 36, creatinine 2.1. ASSESSMENT AND PLAN: 1. Acute kidney injury on chronic kidney disease. Renal function with good improvement. Creatinine is 2.1 from 3.1. Avoid nephrotoxins and continue supportive care. 2. Staghorn calculus, continue on antibiotics. 3. Lactic acidosis. 4. Hypoalbuminemia. 5. Leukocytosis. 6. Hypertension, stable. 7. Anemia, mild. Plan is to continue supportive care. Renal function is better. We will follow. Review of the recor ds, baseline creatinine is around 1.7.
[2017-06-20] MEDS: Enoxaparin Sodium 30 MG/0.3 ML SYRINGE SC SCH (09:53)
[2017-06-20] MEDS: Sodium Chloride 0.9% 1,000 ML IV SCH (09:54)
[2017-06-20] MEDS ORDERED: Meropenem 2 GM, Admixture Fee 1 EACH in Sodium Chloride 0.9% 100 ML IVPB SCH (14:00)
[2017-06-20] MEDS ORDERED: Meropenem 2 GM in Admixture Fee 1 EACH IVPB SCH (14:00)
--- NOTE | 2017-06-20 15:16 | PDOC.PN ---
- Subjective Encounter Start Date: 06/20/17 Encounter Start Time: 12:00 Patient is seen today, alert and oriented. No other concern noted. - Objective Resuscitation Status: Resuscitation Status FULL:Full Resuscitation MAR Reviewed: Yes Vital Signs & Weight: Vital Signs (12 hours) Temp Pulse Resp BP BP BP Pulse Ox 06/20/17 08:37 145/68 H 06/20/17 08:00 98.5 F 82 18 128/78 100 06/20/17 04:00 98.4 F 87 20 170/93 H 96 Weight Admit Weight 152 lb Weight 152 lb I&O: 06/19/17 06/20/17 06/21/17 06:59 06:59 06:59 Intake Total 450 640 Output Total 800 1300 Balance -350 -660 Result Diagrams: 06/20/17 04:38 06/20/17 04:38 Radiology Reviewed by me: Yes Phys Exam - Physical Examination HEENT: PERRLA, moist MMs Neck: no nodes, no JVD Respiratory: no wheezing, no rales Cardiovascular: RRR, no significant murmur Gastrointestinal: soft, non-tender, no distention diminished bowel sounds. 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 Will plan to change the Neobladder this admission, (2) SBO (small bowel obstruction) Code(s): K56.609 - UNSP INTESTNL OBST, UNSP TO PARTIAL VERSUS COMPLETE OBST Status: Acute Comment: Will continue with NG tube, general Surgery is on Board, no surgery planned yet. Discontinued Intermittant suction. (3) Other septicemia due to Gram-negative organism Code(s): A41.59 - OTHER GRAM-NEGATIVE SEPSIS Status: Acute Comment: PT is on levo and Zosyn, worseing WBC, will change to meropenam, Wait for Urine Sensitivities (4) Right lower quadrant abdominal mass Code(s): R19.03 - RIGHT LOWER QUADRANT ABDOMINAL SWELLING, MASS AND LUMP Status: Acute Comment: Likely Ileo conduit Obstruction per Urology, 4cm mass, Will follow Urology recommedations, (5) Moderate dehydration Code(s): E86.0 - DEHYDRATION Status: Acute Comment: Continue with IV fluids , Good urine output. - Plan cont current plan of care, plan discussed w/ family, bahena catheter, continue antibiotics, PT/OT, respiratory therapy, DVT proph w/lovenox * . - Discharge Day Encounter end time: 12:35 Review of Systems - Review of Systems Eyes: negative: Pain, Vision Change, Conjunctivae Inflammation, Eyelid Inflammation, Redness, Other ENT: negative: Ear Pain, Ear Discharge, Nose Pain, Nose Discharge, Nose Congestion, Mouth Pain, Mouth Swelling, Throat Pain, Throat Swelling, Other Respiratory: negative: Cough, Dry, Shortness of Breath, Hemoptysis, SOB with Excertion, Pleuritic Pain, Sputum, Wheezing Cardiovascular: negative: chest pain, palpitations, orthopnea, paroxysmal nocturnal dyspnea, edema, light headedness, other Gastrointestinal: Nausea, Vomiting Genitourinary: negative: Dysuria, Frequency, Incontinence, Hematuria, Retention , Other Musculoskeletal: negative: Neck Pain, Shoulder Pain, Arm Pain, Back Pain, Hand Pain, Leg Pain, Foot Pain, Other - Medications/Allergies Allergies/Adverse Reactions: Allergies Allergy/AdvReac Type Severity Reaction Status Date / Time No Allergy Information Allergy Verified 06/17/17 14:51 Available Medications: Current Medications Acetaminophen (Tylenol) 650 mg PO Q6H PRN PRN Reason: Headache/Fever or Pain Last Admin: 06/20/17 03:09 Dose: 650 mg Enoxaparin Sodium (Lovenox) 30 mg SC 0900 [facility] Last Admin: 06/20/17 09:53 Dose: 30 mg Famotidine (Pepcid) 20 mg SLOW IVP Q24HR [facility] Last Admin: 06/19/17 20:48 Dose: 20 mg Levofloxacin 500 mg/ Device 100 mls @ 100 mls/hr IVPB Q2D@1400 [facility] Last Admin: 06/20/17 13:43 Dose: 100 mls Meropenem 2 gm/ Miscellaneous Medication 1 each/ Sodium Chloride 100 mls @ 200 mls/hr IVPB Q8HR [facility] Stop: 06/20/17 17:00 Meropenem 2 gm/ Miscellaneous Medication 1 each/ Sodium Chloride 100 mls @ 200 mls/hr IVPB 0200,1400 [facility] Lorazepam (Ativan) 0.5 mg SLOW IVP Q6H PRN PRN Reason: Anxiety/Agitation Last Admin: 06/18/17 15:12 Dose: 0.5 mg Miscellaneous Medication (Pharmacy To Dose) 0 each IVPB PRN PRN PRN Reason: RENAL DOSING Ondansetron HCl (Zofran) 4 mg IVP Q6H PRN PRN Reason: Nausea/Vomiting Last Admin: 06/18/17 14:59 Dose: 4 mg Sodium Chloride (Flush - Normal Saline) 10 ml IVF Q12HR [facility] Last Admin: 06/20/17 09:53 Dose: Not Given Sodium Chloride (Flush - Normal Saline) 10 ml IVF PRN PRN PRN Reason: Saline Flush
--- NOTE | 2017-06-20 17:57 | PRG ---
DATE OF SERVICE: 06/20/2017 ATTENDING PHYSICIAN: Dr. Santos. SUBJECTIVE: The patient is an 82-year-old female for which Surgery has been consulted for concern for a small-bowel obstruction. She was admitted to the hospital overnight with NG tube in place. She had a trial of clear liquid diet yesterday. She has reported that she has started having bowel movements and passing flatus this morning. She was able to tolerate sips of clears with no nausea. OBJECTIVE: VITAL SIGNS: Temperature 98.5, pulse 95, respirations 22, O2 sats 96% on room air, blood pressure 173/75. GENERAL: Elderly appearing female, frail appearing, no acute distress. LUNGS: Bilateral breath sounds clear to auscultation. ABDOMEN: Soft, nontender, nondistended. GENITOURINARY: Urostomy in place. ASSESSMENT: 1. Partial small-bowel obstruction, resolved. 2. Tolerated a trial of clear liquid. PLAN: Discontinue NG tube. Clear liquid diet today, may advance tomorrow if patient continues to tolerate clears. Patient was reviewed with Dr. Santos who agrees with plan. [facility]
[2017-06-20] MEDS: Famotidine 40 MG/4 ML VIAL SLOW IVP SCH (19:47)
--- NOTE | 2017-06-20 20:04 | PRG ---
DATE OF SERVICE: 06/20/2017 SUBJECTIVE: Patient was seen and examined at bedside and overnight events noted. Patient denies any shortness of breath or chest pain or palpitation. No history of nausea or vomiting or diarrhea or f ever or chills or cramps. OBJECTIVE: GENERAL: This is a well-built female, in no apparent distress. VITAL SIGNS: Temperature 98.5, pulse 82, respiratory rate 18, blood pressure 128/78. HEENT: Atraumatic, normocephalic, oral mucosa is moist. NECK: Supple. CARDIOVASCULAR: S1, S2 heard, rate and rhythm regular. RESPIRATORY: Clear to auscultation. GASTROINTESTINAL: Abdomen is soft. MUSCULOSKELETAL: No tenderness, no edema. DERMATOLOGIC: No skin rash. NEUROLOGIC: Alert and awake and oriented x3. No focal neurologic deficits. Moving all the extremit ies. PSYCHIATRIC: Mood and affect normal. LABORATORY DATA: Potassium is 3.3, BUN is 30, creatinine is 1.29. ASSESSMENT AND PLAN: 1. Acute kidney injury on chronic kidney disease. Renal function is much better. Creatinine is 1.2 from 3.1 on admission. 2. Lactic acidosis. 3. Hypoalbuminemia. 4. Leukocytosis. 5. Hypertension, stable. Continue supportive care. Renal function is better. We will follow.
--- NOTE | 2017-06-20 22:44 | PRG ---
DATE OF SERVICE: 06/20/2017 SUBJECTIVE: Patient is feeling better, has passed gas, and had a small bowel movement today. NG tub e has been removed. OBJECTIVE: VITAL SIGNS: Temperature 98.5, blood pressure 145/68, pulse 82, respiratory rate 18. ABDOMEN: Soft, nontender. No peritoneal signs. Ileostomy stoma, pink. LABORATORY DATA: Creatinine 1.3. White blood cell count 32. IMPRESSION: Ms. Lo is an 82-year-old female with partial small-bowel obstruction. From urologi c standpoint, she has a history of cystectomy almost 20 years ago with ileal conduit urinary diversio n. She has a left-sided staghorn calculus and what appears to be a large calcification within her il eal conduit. Her kidney function is normal with expected amount of ureteral renal dilatation is seen and ileal conduits. She is followed by Dr. Herrera in [place]. No further urologic recommendations at this time.
[2017-06-21] MEDS: Meropenem 2 GM, Admixture Fee 1 EACH in Sodium Chloride 0.9% 100 ML IVPB SCH ×2 (02:10→13:40)
[2017-06-21] MEDS: Acetaminophen 325 MG TAB PO PRN ×2 (03:27→21:08)
[2017-06-21 06:06] LABS: Anion Gap 10 mmol/L (10-20); BUN (Urea Nitrogen) 22 mg/dL (9.8-20.1); Calc. Creatinine Clearance 50 mL/min (70-130); Calcium 8.5 mg/dL (7.8-10.44); Carbon Dioxide 23 mmol/L (23-31); Chloride 114 mmol/L (98-107); Estimated GFR-MDRD 71; Glucose 96 mg/dL (83-110); Sodium 144 mmol/L (136-145)
[2017-06-21 06:09] LABS: Potassium 2.8 mmol/L (3.5-5.1)
[2017-06-21] MEDS: Enoxaparin Sodium 30 MG/0.3 ML SYRINGE SC SCH (08:26)
[2017-06-21] MEDS: Potassium Chloride 20 MEQ TAB PO SCH ×3 (08:26→16:18)
--- NOTE | 2017-06-21 10:01 | PRG ---
DATE OF SERVICE: 06/21/2017 ATTENDING PHYSICIAN: Dr. Santos. SUBJECTIVE: Ms. Lo is an 82-year-old female who was admitted to the hospital with possible small-bowel obstruction. Her NG tube was clamped 3 days ago and she was started on trials of clear liquids. Yesterday, NG tube was discontinued. She tolerated clear liquid diet all day. She began having bowel movements. She had no abdominal pain. She was advanced to regular diet. OBJECTIVE: VITAL SIGNS: Temperature 97.7, pulse 76, respirations 20, O2 sat 100% on room air, blood pressure 155/77. GENERAL: Elderly female seen ambulating around in the room without assistance. Nontoxic appearing, no acute distress. LUNGS: Bilateral breath sounds clear. ABDOMEN: Soft, nontender, and nondistended. GENITOURINARY: Urostomy in place. ASSESSMENT: 1. Partial small-bowel obstruction, resolved. 2. Tolerating regular diet. PLAN: Small-bowel obstruction has resolved. There is no need for a surgical intervention. The patient is having normal bowel function and tolerating regular diet. Trauma Surgery will sign off at this time. If we can be of further assistance, please reconsult us. Patient was reviewed with Dr. Santos who agrees with plan. [facility]
[2017-06-21 12:54] LABS: Anion Gap 11 mmol/L (10-20); BUN (Urea Nitrogen) 23 mg/dL (9.8-20.1); Calc. Creatinine Clearance 45 mL/min (70-130); Calcium 9.1 mg/dL (7.8-10.44); Carbon Dioxide 23 mmol/L (23-31); Chloride 110 mmol/L (98-107); Estimated GFR-MDRD 62; Glucose 100 mg/dL (83-110); Potassium 3.3 mmol/L (3.5-5.1); Sodium 141 mmol/L (136-145)
[2017-06-21 12:55] LABS: Band 8 % (5-11); Hemoglobin 12.3 g/dL (12.0-16.0); Lymphocytes 1 % (21-51); MDiff Complete? YES; Mean Corpuscular HGB CONC 31.9 g/dL (32.0-36.0); Mean Corpuscular Hemoglobin 26.8 pg (27.0-31.0); Mean Corpuscular Volume 84.1 fl (81.0-99.0); Mean Platelet Volume 9.6 fL (7.4-10.4); Metamyelocyte 2 % (0-0); Monocytes 3 % (0-10); Myelocyte 1 % (0-0); Neutrophil 85 % (42-75); PLT Morphology Comment Appears Decreased; Platelet Count 125 thou/uL (130-400); RBC Distribution Width 13.5 % (11.5-14.5); RBC Morphology Normal; Red Blood Cell (RBC) Count 4.57 mill/uL (4.20-5.40); White Blood Cell (WBC) Count 25.5 thou/uL (4.8-10.8)
--- NOTE | 2017-06-21 13:37 | PDOC.PN ---
- Subjective Encounter Start Date: 06/21/17 Encounter Start Time: 11:00 Kareem is sen ntoday, improving with IV antibitics, pt SBO is resolved. remains Septic with gram neg bacteremia - Objective Resuscitation Status: Resuscitation Status FULL:Full Resuscitation MAR Reviewed: Yes Vital Signs & Weight: Vital Signs (12 hours) Temp Pulse Pulse Resp BP BP Pulse Ox 06/21/17 10:25 76 155/77 H 06/21/17 08:21 97.7 F 76 20 155/77 H 100 06/21/17 08:00 97.7 F 76 20 100 Pulse Ox 06/21/17 10:25 100 06/21/17 08:21 06/21/17 08:00 Weight Admit Weight 152 lb Weight 152 lb I&O: 06/20/17 06/21/17 06/22/17 06:59 06:59 06:59 Intake Total 640 1650 Output Total 1300 1500 Balance -660 150 Result Diagrams: 06/21/17 12:21 06/21/17 12:21 Radiology Reviewed by me: Yes EKG Reviewed by me: Yes Phys Exam - Physical Examination HEENT: PERRLA, moist MMs Neck: no nodes, no JVD Respiratory: no wheezing, no rales Cardiovascular: no significant murmur Gastrointestinal: soft, non-tender Musculoskeletal: no edema, pulses present Neurological: non-focal, normal sensation Lymphatic: no nodes Psychiatric: normal affect, A&O x 3 Dx/Plan (1) Acute pyelonephritis Code(s): N10 - ACUTE PYELONEPHRITIS Status: Acute Comment: Continue with below ABX, 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 Will plan to change the Neobladder this admission,stbale urine output. (2) SBO (small bowel obstruction) Code(s): K56.609 - UNSP INTESTNL OBST, UNSP TO PARTIAL VERSUS COMPLETE OBST Status: Resolved Comment: resolved. Now Reg diet. (3) Other septicemia due to Gram-negative organism Code(s): A41.59 - OTHER GRAM-NEGATIVE SEPSIS Status: Acute Comment: PT is on meropenam, Sensitive to both Ecoli, Morgagni. 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 - Plan cont current plan of care, plan discussed w/ family, continue antibiotics, PT/OT , social sciences lecturer, respiratory therapy, incentive spirometry, out of bed/ ambulate, DVT proph w/lovenox * . - Discharge Day Encounter end time: 11:35 Review of Systems - Review of Systems Eyes: negative: Pain, Vision Change, Conjunctivae Inflammation, Eyelid Inflammation, Redness, Other ENT: negative: Ear Pain, Ear Discharge, Nose Pain, Nose Discharge, Nose Congestion, Mouth Pain, Mouth Swelling, Throat Pain, Throat Swelling, Other Respiratory: negative: Cough, Dry, Shortness of Breath, Hemoptysis, SOB with Excertion, Pleuritic Pain, Sputum, Wheezing Cardiovascular: negative: chest pain, palpitations, orthopnea, paroxysmal nocturnal dyspnea, edema, light headedness, other Musculoskeletal: negative: Neck Pain, Shoulder Pain, Arm Pain, Back Pain, Hand Pain, Leg Pain, Foot Pain, Other Skin: negative: Rash, Lesions, Brad, Bruising, Other - Medications/Allergies Allergies/Adverse Reactions: Allergies Allergy/AdvReac Type Severity Reaction Status Date / Time No Allergy Information Allergy Verified 06/17/17 14:51 Available Medications: Current Medications Acetaminophen (Tylenol) 650 mg PO Q6H PRN PRN Reason: Headache/Fever or Pain Last Admin: 06/21/17 03:27 Dose: 650 mg Enoxaparin Sodium (Lovenox) 30 mg SC 0900 [facility] Last Admin: 06/21/17 08:26 Dose: 30 mg Famotidine (Pepcid) 20 mg SLOW IVP Q24HR EM Last Admin: 06/20/17 19:47 Dose: 20 mg Meropenem 2 gm/ Miscellaneous Medication 1 each/ Sodium Chloride 100 mls @ 200 mls/hr IVPB 0200,1400 EM Last Admin: 06/21/17 02:10 Dose: 100 mls Lorazepam (Ativan) 0.5 mg SLOW IVP Q6H PRN PRN Reason: Anxiety/Agitation Last Admin: 06/18/17 15:12 Dose: 0.5 mg Miscellaneous Medication (Pharmacy To Dose) 0 each IVPB PRN PRN PRN Reason: RENAL DOSING Ondansetron HCl (Zofran) 4 mg IVP Q6H PRN PRN Reason: Nausea/Vomiting Last Admin: 06/18/17 14:59 Dose: 4 mg Potassium Chloride (K-Dur) 20 meq PO TID-WM [facility] Stop: 06/22/17 08:01 Last Admin: 06/21/17 11:50 Dose: 20 meq Sodium Chloride (Flush - Normal Saline) 10 ml IVF Q12HR [facility] Last Admin: 06/21/17 08:27 Dose: 10 ml Sodium Chloride (Flush - Normal Saline) 10 ml IVF PRN PRN PRN Reason: Saline Flush
--- NOTE | 2017-06-21 16:23 | PRG ---
Patient Name: HOA CASAS Date of service: 06/21/2017 Subjective: Patient was seen and examined at bedside and overnight events noted. Patient denies any shortness of breath or chest pain or palpitation. No history of nausea or vomiting or diarrhea or fever or chills or cramps. Objective: General: This is a well-built female in no apparent distress. Vital signs: Temperature 97.7, pulse 73, respiratory rate 18, blood pressure 155/77. HEENT: Atraumatic, normocephalic. Oral mucosa is moist. Neck: Supple. Cardiovascular: S1 S2 heard. Rate and rhythm regular. Respiratory: Clear to auscultation. Gastrointestinal: Abdomen is soft. Musculoskeletal: No tenderness. No edema. Dermatologic: No skin rash. Neurologic: Alert and awake and oriented X3. No focal neurologic deficits. Moving all the extremit ies. Psychiatric: Mood and affect normal. LABORATORY DATA: Potassium is 3.3, BUN 23, creatinine is 1.03. ASSESSMENT AND PLAN: 1. Acute kidney injury. Renal function is much better. 2. Hypokalemia, replace and monitor. 3. Acidosis. 4. Hypertension. 5. Hypoalbuminemia. Renal function is much better. I will sign off.
[2017-06-21] MEDS: Famotidine 20 MG TAB PO SCH (21:03)
[2017-06-22] MEDS: Meropenem 2 GM, Admixture Fee 1 EACH in Sodium Chloride 0.9% 100 ML IVPB SCH ×2 (02:10→14:24)
[2017-06-22] MEDS: Enoxaparin Sodium 30 MG/0.3 ML SYRINGE SC SCH (08:40)
[2017-06-22] MEDS: Potassium Chloride 20 MEQ TAB PO SCH (08:40)
[2017-06-22] MEDS: Acetaminophen 325 MG TAB PO PRN (08:42)
--- NOTE | 2017-06-22 18:00 | PDOC.PN ---
- Subjective Encounter Start Date: 06/22/17 Encounter Start Time: 17:45 Subjective: f/u for sepsis with E. coli/Morganella spp from UTI tx with Meropenem. -: Feels weak overall. No fever noted. c/o of LLE knot behind the knee. -: No swelling, but painful swelling and when touching the LLE. - Objective Resuscitation Status: Resuscitation Status FULL:Full Resuscitation MAR Reviewed: Yes Vital Signs & Weight: Vital Signs (12 hours) Temp Pulse Resp BP Pulse Ox 06/22/17 08:00 98.5 F 72 20 154/74 H 100 Weight Admit Weight 152 lb Weight 152 lb I&O: 06/21/17 06/22/17 06/23/17 06:59 06:59 06:59 Intake Total 1650 1820 1310 Output Total 1500 2010 800 Balance 150 -190 510 Result Diagrams: 06/21/17 12:21 06/21/17 12:21 Additional Labs: Microbiology 06/20/17 12:09 Stool C. difficile GDH Antigen & Toxins - Final 06/18/17 14:16 Venous blood - Left Foot Blood Culture - Final Escherichia coli 06/18/17 14:04 Venous blood - Right Arm Blood Culture - Final Morganella morganii ssp shemar 06/18/17 10:07 Urine Nephrostomy tube Urine Culture - Final Morganella morganii ssp shemar Presumptive Escherichia coli Beta-hemolytic Streptococcus Laboratory Tests 06/18/17 06/19/17 06/20/17 09:58 03:33 04:38 WBC 21.8 H 27.3 H 32.2 H Plt Count 114 L 106 L Band Neuts % (Manual) 30 H 19 H Potassium Prealbumin 06/20/17 06/21/17 06/21/17 15:51 04:58 12:21 WBC Plt Count Band Neuts % (Manual) 8 Potassium 2.8 L* Prealbumin 10.0 L Phys Exam - Physical Examination Constitutional: NAD HEENT: PERRLA, oral pharynx no lesions Neck: no JVD, supple Respiratory: no wheezing, clear to auscultation bilateral Cardiovascular: RRR Gastrointestinal: soft, non-tender, no distention, positive bowel sounds nodule near LLE in popliteal fossa region, +TTP Musculoskeletal: pulses present Neurological: normal sensation, moves all 4 limbs Psychiatric: A&O x 3 Skin: normal turgor, cap refill <2 seconds Dx/Plan (1) Other septicemia due to Gram-negative organism Code(s): A41.59 - OTHER GRAM-NEGATIVE SEPSIS Status: Acute Comment: Continue Meropenem as E. coli and Morganella spp sensitive (2) Acute pyelonephritis Code(s): N10 - ACUTE PYELONEPHRITIS Status: Acute Comment: Continue Meropenem as outlined #1, appreciate Urology input (3) DONTE (acute kidney injury) Code(s): N17.9 - ACUTE KIDNEY FAILURE, UNSPECIFIED Status: Acute Comment: Improved with IVF's and abx therapy, monitor serial creatinine, avoid nephrotoxic agents and contrast media (4) Nodule of soft tissue Code(s): M79.89 - OTHER SPECIFIED SOFT TISSUE DISORDERS Status: Acute Comment: ? etiology, check LE sono to r/o DVT (5) Hypokalemia Code(s): E87.6 - HYPOKALEMIA Status: Acute Comment: Improved, continue KCL supplementation and repeat K+ level in am (6) Neutrophilic leukocytosis Code(s): D72.9 - DISORDER OF WHITE BLOOD CELLS, UNSPECIFIED Status: Acute Comment: Slow improvement with current tx, CBC in am (7) SBO (small bowel obstruction) Code(s): K56.609 - UNSP INTESTNL OBST, UNSP TO PARTIAL VERSUS COMPLETE OBST Status: Resolved Comment: Resolved with conservative mgmt, appreciate Gen Surgery assistance - Plan continue antibiotics, PT/OT, social security specialist, out of bed/ambulate Stable currently -: Continue Meropenem -: Check LE doppler to r/o DVT -: OOB/ambulate with PT -: AM lab: BMP, CBC * .
[2017-06-22] MEDS ORDERED: Potassium Chloride 20 MEQ TAB PO SCH (18:15)
[2017-06-22] MEDS: Famotidine 20 MG TAB PO SCH (20:25)
[2017-06-22] MEDS: Latanoprost 0.005% Ophth Soln 2.5 ml Bottle EA EYE SCH (21:44)
[2017-06-22] MEDS: Timolol 0.5% Ophth Soln 5 ml Bottle EA EYE SCH (21:44)
[2017-06-22] MEDS ORDERED: Simethicone Chewable 80 MG TAB PO PRN (21:54)
--- NOTE | 2017-06-22 21:56 | ULT ---
LEFT LOWER EXTREMITY VENOUS DOPPLER WITH SPECTRAL ANALYSIS AND COLOR FLOW EVALUATION: Date: 06/22/17 HISTORY: Left lower extremity nodule in popliteal fossa region. Left lower extremity pain. TECHNIQUE: Jarvis scale, color flow, Doppler evaluation, and spectral analysis of the left lower extremity venous structures is performed with 2D imaging. The left lower extremity common femoral, superficial femoral , popliteal, posterior tibial, most proximal greater saphenous, and profunda femoral veins are imaged . FINDINGS: There is normal lumen compressibility, flow, and augmentation in the visualized deep venous structure s of the left lower extremity. There are no findings to suggest a mass or cystic lesion in the left popliteal fossa. There are no fi ndings to suggest a Zurita's cyst. IMPRESSION: 1. No evidence of a deep venous thrombosis involving the visualized deep venous structures of the le ft lower extremity. 2. No evidence of a mass or cystic lesion in the left popliteal fossa. POS: REE
[2017-06-22] MEDS: Sucralfate 1 GM TAB PO PRN (22:27)
[2017-06-22] MEDS: Calcium Carbonate 500 MG ChewTAB PO PRN (22:27)
[2017-06-23] MEDS: Meropenem 2 GM, Admixture Fee 1 EACH in Sodium Chloride 0.9% 100 ML IVPB SCH ×2 (01:07→14:18)
[2017-06-23 05:08] LABS: Anion Gap 11 mmol/L (10-20); BUN (Urea Nitrogen) 17 mg/dL (9.8-20.1); Calc. Creatinine Clearance 59 mL/min (70-130); Calcium 8.8 mg/dL (7.8-10.44); Carbon Dioxide 23 mmol/L (23-31); Chloride 105 mmol/L (98-107); Estimated GFR-MDRD 85; Glucose 83 mg/dL (83-110); Potassium 3.8 mmol/L (3.5-5.1); Sodium 135 mmol/L (136-145)
[2017-06-23 05:24] LABS: Band 10 % (5-11); Hemoglobin 11.7 g/dL (12.0-16.0); Lymphocytes 5 % (21-51); MDiff Complete? YES; Mean Corpuscular Hemoglobin 26.1 pg (27.0-31.0); Mean Corpuscular Volume 81.5 fl (81.0-99.0); Mean Platelet Volume 9.7 fL (7.4-10.4); Metamyelocyte 1 % (0-0); Monocytes 7 % (0-10); Myelocyte 1 % (0-0); Neutrophil 76 % (42-75); PLT Morphology Comment Appears Decreased; Platelet Count 123 thou/uL (130-400); RBC Distribution Width 13.2 % (11.5-14.5); Red Blood Cell (RBC) Count 4.46 mill/uL (4.20-5.40); White Blood Cell (WBC) Count 28.7 thou/uL (4.8-10.8)
[2017-06-23] MEDS: Enoxaparin Sodium 30 MG/0.3 ML SYRINGE SC SCH (08:15)
[2017-06-23] MEDS: Ondansetron HCl/PF 4 MG/2 ML Vial IVP PRN ×2 (08:16→18:23)
[2017-06-23] MEDS: Potassium Chloride 20 MEQ TAB PO SCH (08:16)
[2017-06-23] MEDS: Timolol 0.5% Ophth Soln 5 ml Bottle EA EYE SCH ×2 (08:17→20:12)
[2017-06-23] MEDS: Amlodipine 5 mg/Benazepril 10 mg CAP PO SCH (10:02)
[2017-06-23] MEDS: Acetaminophen 325 MG TAB PO PRN (14:24)
--- NOTE | 2017-06-23 15:41 | PDOC.PN ---
- Subjective Encounter Start Date: 06/23/17 Encounter Start Time: 15:25 Subjective: f/u for UTI with E. coli, Morganella spp on Meropenem but persistent -: leukocytosis, no fever. Some abd pain earlier this am but now resolved. -: Ambulating in halls without difficulty. - Objective Resuscitation Status: Resuscitation Status FULL:Full Resuscitation MAR Reviewed: Yes Vital Signs & Weight: Vital Signs (12 hours) Temp Pulse Resp BP BP Pulse Ox 06/23/17 08:17 92 128/66 06/23/17 08:00 98.9 F 92 18 94 L 06/23/17 07:25 98.9 F 91 18 128/66 94 L Weight Admit Weight 152 lb Weight 152 lb I&O: 06/22/17 06/23/17 06/24/17 06:59 06:59 06:59 Intake Total 1819 1909 Output Total 2009 1974 Balance -190 -65 Result Diagrams: 06/23/17 04:27 06/23/17 04:27 Additional Labs: Microbiology 06/20/17 12:09 Stool C. difficile GDH Antigen & Toxins - Final 06/18/17 14:16 Venous blood - Left Foot Blood Culture - Final Escherichia coli 06/18/17 14:04 Venous blood - Right Arm Blood Culture - Final Morganella morganii ssp shemar 06/18/17 10:07 Urine Nephrostomy tube Urine Culture - Final Morganella morganii ssp shemar Presumptive Escherichia coli Beta-hemolytic Streptococcus Laboratory Tests 06/18/17 06/19/17 06/20/17 09:58 03:33 04:38 WBC 21.8 H 27.3 H 32.2 H Plt Count 114 L 106 L Band Neuts % (Manual) 30 H 19 H Potassium Prealbumin 06/20/17 06/21/17 06/21/17 15:51 04:58 12:21 WBC Plt Count Band Neuts % (Manual) 8 Potassium 2.8 L* Prealbumin 10.0 L Radiology Reviewed by me: Yes (LLE sono - no DVT) Phys Exam - Physical Examination Constitutional: NAD HEENT: PERRLA, oral pharynx no lesions Neck: no JVD, supple Respiratory: no wheezing, clear to auscultation bilateral Cardiovascular: RRR urostomy in place Gastrointestinal: soft, no distention, positive bowel sounds Musculoskeletal: no edema, pulses present Neurological: moves all 4 limbs Psychiatric: A&O x 3 Skin: normal turgor, cap refill <2 seconds Dx/Plan (1) Other septicemia due to Gram-negative organism Code(s): A41.59 - OTHER GRAM-NEGATIVE SEPSIS Status: Acute Comment: Add Rocephin 2gm IV daily as leukocytosis persists (2) Acute pyelonephritis Code(s): N10 - ACUTE PYELONEPHRITIS Status: Acute Comment: Clinically appears improved but leukocytosis remains, add Rocephin, re-consult Urology service (3) DONTE (acute kidney injury) Code(s): N17.9 - ACUTE KIDNEY FAILURE, UNSPECIFIED Status: Acute Comment: Resolving with supportive measures, limit contrast exposure and nephrotoxic meds (4) Nodule of soft tissue Code(s): M79.89 - OTHER SPECIFIED SOFT TISSUE DISORDERS Status: Acute Comment: ? etiology, DVT r/o with duplex sono (5) Hypokalemia Code(s): E87.6 - HYPOKALEMIA Status: Acute Comment: Improved, serial monitoring (6) Neutrophilic leukocytosis Code(s): D72.9 - DISORDER OF WHITE BLOOD CELLS, UNSPECIFIED Status: Acute Comment: Persistent, add Rocephin, re-consult Urology service, repeat CBC (7) SBO (small bowel obstruction) Code(s): K56.609 - UNSP INTESTNL OBST, UNSP TO PARTIAL VERSUS COMPLETE OBST Status: Resolved Comment: Resolved with conservative mgmt, appreciate Gen Surgery assistance - Plan plan discussed w/ family, continue antibiotics, out of bed/ambulate, DVT proph w /SCDs Stable currently -: Add Rocephin 2gm IV daily -: Urology re-consulted -: OOB/ambulate -: AM lab: CBC * .
[2017-06-23] MEDS: cefTRIAXone\\ROCEPHIN 2 GM in Sodium Chloride 0.9% 100 ML IVPB SCH (17:22)
[2017-06-23] MEDS: traMADol HCl 50 MG TAB PO PRN (18:46)
[2017-06-23] MEDS: Latanoprost 0.005% Ophth Soln 2.5 ml Bottle EA EYE SCH (20:12)
[2017-06-23] MEDS: Calcium Carbonate 500 MG ChewTAB PO PRN (20:14)
[2017-06-23] MEDS: Famotidine 20 MG TAB PO SCH (20:14)
[2017-06-23] MEDS: Sucralfate 1 GM TAB PO PRN (20:22)
[2017-06-24] MEDS ORDERED: Ondansetron HCl/PF 4 MG/2 ML Vial IVP PRN (04:00)
[2017-06-24] MEDS: Meropenem 2 GM, Admixture Fee 1 EACH in Sodium Chloride 0.9% 100 ML IVPB SCH ×2 (04:05→14:35)
[2017-06-24 05:11] LABS: Hemoglobin 11.8 g/dL (12.0-16.0); Mean Corpuscular HGB CONC 32.2 g/dL (32.0-36.0); Mean Corpuscular Hemoglobin 26.2 pg (27.0-31.0); Mean Corpuscular Volume 81.6 fl (81.0-99.0); Mean Platelet Volume 9.3 fL (7.4-10.4); Platelet Count 169 thou/uL (130-400); RBC Distribution Width 13.4 % (11.5-14.5); White Blood Cell (WBC) Count 29.7 thou/uL (4.8-10.8)
[2017-06-24 05:12] LABS: Band 4 % (5-11); Lymphocytes 8 % (21-51); MDiff Complete? YES; Monocytes 2 % (0-10); Neutrophil 86 % (42-75); PLT Morphology Comment Appears Adequate
[2017-06-24] MEDS: Enoxaparin Sodium 30 MG/0.3 ML SYRINGE SC SCH (08:37)
[2017-06-24] MEDS: Amlodipine 5 mg/Benazepril 10 mg CAP PO SCH (08:37)
[2017-06-24] MEDS: Timolol 0.5% Ophth Soln 5 ml Bottle EA EYE SCH ×2 (08:37→20:43)
[2017-06-24] MEDS: Potassium Chloride 20 MEQ TAB PO SCH (08:38)
[2017-06-24] MEDS: traMADol HCl 50 MG TAB PO PRN (15:27)
[2017-06-24] MEDS: Calcium Carbonate 500 MG ChewTAB PO PRN (17:04)
[2017-06-24] MEDS: cefTRIAXone\\ROCEPHIN 2 GM in Sodium Chloride 0.9% 100 ML IVPB SCH (17:04)
--- NOTE | 2017-06-24 18:05 | PDOC.PN ---
- Subjective Encounter Start Date: 06/24/17 Encounter Start Time: 17:50 Subjective: f/u for UTI with e. coli/morganella spp on Rocephin and Meropenem. -: Overall feels ok but WBC remains elevated despite tx. No documented -: fever and pt ambulating. Some transient abd pain but eating ok. - Objective Resuscitation Status: Resuscitation Status FULL:Full Resuscitation MAR Reviewed: Yes Vital Signs & Weight: Vital Signs (12 hours) Temp Pulse Resp BP BP Pulse Ox 06/24/17 08:37 84 151/77 H 06/24/17 08:00 98.7 F 84 18 97 06/24/17 07:42 98.7 F 84 18 151/77 H 99 06/24/17 07:35 98.7 F 84 18 151/77 H 99 Weight Admit Weight 152 lb Weight 152 lb I&O: 06/23/17 06/24/17 06/25/17 06:59 06:59 06:59 Intake Total 1910 360 Output Total 1975 900 Balance -65 -540 Result Diagrams: 06/24/17 04:10 06/23/17 04:27 Additional Labs: Microbiology 06/20/17 12:09 Stool C. difficile GDH Antigen & Toxins - Final 06/18/17 14:16 Venous blood - Left Foot Blood Culture - Final Escherichia coli 06/18/17 14:04 Venous blood - Right Arm Blood Culture - Final Morganella morganii ssp shemar 06/18/17 10:07 Urine Nephrostomy tube Urine Culture - Final Morganella morganii ssp shemar Presumptive Escherichia coli Beta-hemolytic Streptococcus Laboratory Tests 06/18/17 06/19/17 06/20/17 09:58 03:33 04:38 WBC 21.8 H 27.3 H 32.2 H Plt Count 114 L 106 L Band Neuts % (Manual) 30 H 19 H Potassium Prealbumin 06/20/17 06/21/17 06/21/17 15:51 04:58 12:21 WBC Plt Count Band Neuts % (Manual) 8 Potassium 2.8 L* Prealbumin 10.0 L Phys Exam - Physical Examination Constitutional: NAD HEENT: PERRLA, oral pharynx no lesions Neck: no JVD, supple Respiratory: no wheezing, clear to auscultation bilateral Cardiovascular: RRR urostomy in place Gastrointestinal: soft, non-tender, no distention, positive bowel sounds Musculoskeletal: no edema, pulses present Neurological: normal sensation, moves all 4 limbs Psychiatric: A&O x 3 Skin: normal turgor, cap refill <2 seconds Dx/Plan (1) Other septicemia due to Gram-negative organism Code(s): A41.59 - OTHER GRAM-NEGATIVE SEPSIS Status: Acute Comment: Add Rocephin 2gm IV daily as leukocytosis persists, d/c Meropenem (2) Acute pyelonephritis Code(s): N10 - ACUTE PYELONEPHRITIS Status: Acute Comment: Clinically appears improved but leukocytosis remains, add Rocephin, re-consult Urology service for any further recommendations (3) DONTE (acute kidney injury) Code(s): N17.9 - ACUTE KIDNEY FAILURE, UNSPECIFIED Status: Acute Comment: Resolving with supportive measures, limit contrast exposure and nephrotoxic meds (4) Nodule of soft tissue Code(s): M79.89 - OTHER SPECIFIED SOFT TISSUE DISORDERS Status: Acute Comment: ? etiology, DVT r/o with duplex sono negative (5) Hypokalemia Code(s): E87.6 - HYPOKALEMIA Status: Acute Comment: Improved, serial monitoring (6) Neutrophilic leukocytosis Code(s): D72.9 - DISORDER OF WHITE BLOOD CELLS, UNSPECIFIED Status: Acute Comment: Persistent, add Rocephin, re-consult Urology service, repeat CBC (7) SBO (small bowel obstruction) Code(s): K56.609 - UNSP INTESTNL OBST, UNSP TO PARTIAL VERSUS COMPLETE OBST Status: Resolved Comment: Resolved with conservative mgmt, appreciate Gen Surgery assistance - Plan continue antibiotics, PT/OT, social service liaison, out of bed/ambulate Stable overall -: Continue Rocephin 2gm IV daily -: D/C Meropenem -: Re-consult Urology to ascertain any further tx recommendations -: OOB/ambulate * AM lab: CBC
[2017-06-24] MEDS: Famotidine 20 MG TAB PO SCH (20:43)
[2017-06-24] MEDS: Latanoprost 0.005% Ophth Soln 2.5 ml Bottle EA EYE SCH (20:44)
[2017-06-25] MEDS: Meropenem 2 GM, Admixture Fee 1 EACH in Sodium Chloride 0.9% 100 ML IVPB SCH (02:48)
--- NOTE | 2017-06-25 05:04 | PRG ---
DATE OF SERVICE: 06/24/2017 SUBJECTIVE: The patient has continued to have some vomiting, particularly at nighttime, but does have daily bowel movements and tolerates food during the day. She also complains of some mild abdominal discomfort, has been present since her admission. PHYSICAL EXAMINATION: VITAL SIGNS: Temperature 98.7, blood pressure 151/77, pulse 84, respiratory rate 18, and 97% O2 saturation on room air. ABDOMEN: Soft without peritoneal signs. Stoma appears pink and viable. LABORATORY DATA: White count 28.7, hemoglobin 11.7, hematocrit 36.4, platelet count 123. Chemistry: Sodium 135, potassium 3.8, chloride 105, CO2 of 23, BUN 17, creatinine 0.78. IMPRESSION: Ms. Lo continues to have leukocytosis without any fever. She has had positive urine in 1 of 2 positive blood cultures. She remains afebrile , but as mentioned above, has a persistent leukocytosis. In addition, she has abdominal discomfort of unclear etiology and nightly vomiting. 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 Her pain is not consistent with pain from the left renal stone; however, it is possible that the stone in her ileal conduit could be causing pain. The stones clearly have been present for a long period of time and is not a new finding and it was noted by her urologist, Dr. Herrera in May. Removing the stones would be beneficial as a way to remove a nidus of infection, unsure whether it will help with her abdominal pain at all. Removal of the stone might be accomplished endoscopically through her ileostomy. Otherwise, an open approach would be necessary. She is amenable to endoscopic approach for the stone if feasible despite knowing it may not improve her abdominal pain. As mentioned above, there is another good reason to remove the stone as a way to remove the nidus of infection. Treatment of the left renal stone would be riskier and more problematic as it would require percutaneous access to the kidney. She has no flank pain, but again it could represent nidus for infection also. I recommend that treatment of the ileostomy stones should be attempted endoscopically either during this admission or after discharge with her urologist Dr. Herrera in [place]. PLAN: We will try and make arrangements for treatment of the ileal diversion stone here before discharge. If this can be arranged in the near future, then we will try to compensate prior to discharge. MTDD
[2017-06-25] MEDS: Enoxaparin Sodium 30 MG/0.3 ML SYRINGE SC SCH (09:06)
[2017-06-25] MEDS: Amlodipine 5 mg/Benazepril 10 mg CAP PO SCH (09:07)
[2017-06-25] MEDS: Potassium Chloride 20 MEQ TAB PO SCH (09:07)
[2017-06-25] MEDS: Timolol 0.5% Ophth Soln 5 ml Bottle EA EYE SCH ×2 (09:17→20:10)
[2017-06-25] MEDS: Acetaminophen 325 MG TAB PO PRN (09:17)
--- NOTE | 2017-06-25 17:23 | PDOC.PN ---
- Subjective Encounter Start Date: 06/25/17 Encounter Start Time: 12:15 -: old records requested/rev Pt seen and examined, chart reviewed in its entirety, this is my first visit with this patient Pt not nauseated for first day in several today. actually eating without problems at time of visit Pt seen bty Dr Wing, his note was reviewed. plans to deal with stones at some time during this visit, likely not today as she is eating 10 point ROS performed and neg for all systems except as above - Objective Resuscitation Status: Resuscitation Status FULL:Full Resuscitation MAR Reviewed: Yes Vital Signs & Weight: Vital Signs (12 hours) Temp Pulse Resp BP BP Pulse Ox 06/25/17 09:17 89 113/68 06/25/17 08:00 99.0 F 89 16 113/68 97 Weight Admit Weight 152 lb Weight 152 lb I&O: 06/24/17 06/25/17 06/26/17 06:59 06:59 06:59 Intake Total 360 Output Total 900 Balance -540 Result Diagrams: 06/24/17 04:10 06/23/17 04:27 Radiology Reviewed by me: Yes EKG Reviewed by me: Yes Phys Exam - Physical Examination Constitutional: NAD HEENT: PERRLA, moist MMs, sclera anicteric, oral pharynx no lesions Neck: no nodes, no JVD, supple, full ROM Respiratory: no wheezing, no rales, no rhonchi, clear to auscultation bilateral Cardiovascular: RRR, no significant murmur, no rub Gastrointestinal: soft, non-tender, no distention, positive bowel sounds Musculoskeletal: no edema, pulses present Neurological: non-focal, normal sensation, moves all 4 limbs Lymphatic: no nodes Psychiatric: normal affect, A&O x 3 Skin: no rash, normal turgor, cap refill <2 seconds Dx/Plan (1) Bilateral nephrolithiasis Code(s): N20.0 - CALCULUS OF KIDNEY Status: Chronic Comment: per Dr Wing. continue abx. suspect infected stones, will need abx after any procedure, CCM at present (2) DONTE (acute kidney injury) Code(s): N17.9 - ACUTE KIDNEY FAILURE, UNSPECIFIED Status: Acute Comment: Resolving with supportive measures, limit contrast exposure and nephrotoxic meds (3) Acute pyelonephritis Code(s): N10 - ACUTE PYELONEPHRITIS Status: Acute Comment: Clinically appears improved but leukocytosis remains, add Rocephin, re-consult Urology service for any further recommendations. multiple organisms, rocephin should cover both GNR (4) Hypokalemia Code(s): E87.6 - HYPOKALEMIA Status: Acute Comment: Improved, serial monitoring (5) Moderate dehydration Code(s): E86.0 - DEHYDRATION Status: Acute Comment: Continue with IV fluids , Good urine output. (6) Neutrophilic leukocytosis Code(s): D72.9 - DISORDER OF WHITE BLOOD CELLS, UNSPECIFIED Status: Acute Comment: Persistent, add Rocephin, re-consult Urology service, repeat CBC (7) Other septicemia due to Gram-negative organism Code(s): A41.59 - OTHER GRAM-NEGATIVE SEPSIS Status: Acute Comment: Add Rocephin 2gm IV daily as leukocytosis persists, d/c'd Meropenem. E coli and Morganella. continue rocephin (8) SBO (small bowel obstruction) Code(s): K56.609 - UNSP INTESTNL OBST, UNSP TO PARTIAL VERSUS COMPLETE OBST Status: Resolved Comment: Resolved with conservative mgmt, appreciate Gen Surgery assistance - Plan cont current plan of care, continue antibiotics, PT/OT, out of bed/ambulate * .
[2017-06-25] MEDS: cefTRIAXone\\ROCEPHIN 2 GM in Sodium Chloride 0.9% 100 ML IVPB SCH (17:51)
[2017-06-25] MEDS: Famotidine 20 MG TAB PO SCH (20:09)
[2017-06-25] MEDS: Latanoprost 0.005% Ophth Soln 2.5 ml Bottle EA EYE SCH (20:10)
[2017-06-26 04:56] LABS: Anion Gap 11 mmol/L (10-20); BUN (Urea Nitrogen) 14 mg/dL (9.8-20.1); Calc. Creatinine Clearance 66 mL/min (70-130); Calcium 8.6 mg/dL (7.8-10.44); Carbon Dioxide 23 mmol/L (23-31); Chloride 100 mmol/L (98-107); Estimated GFR-MDRD Greater than 90; Glucose 76 mg/dL (83-110); Magnesium 1.6 mg/dL (1.6-2.6); Potassium 4.2 mmol/L (3.5-5.1); Sodium 130 mmol/L (136-145)
[2017-06-26 05:19] LABS: Band 3 % (5-11); Hemoglobin 10.6 g/dL (12.0-16.0); Lymphocytes 8 % (21-51); MDiff Complete? YES; Mean Corpuscular HGB CONC 32.4 g/dL (32.0-36.0); Mean Corpuscular Hemoglobin 26.3 pg (27.0-31.0); Monocytes 10 % (0-10); Neutrophil 79 % (42-75); Platelet Count 309 thou/uL (130-400); RBC Distribution Width 13.1 % (11.5-14.5); Red Blood Cell (RBC) Count 4.02 mill/uL (4.20-5.40); Schistocytes SLIGHT = 2-5 cells (100X) (0-1/hpf); White Blood Cell (WBC) Count 17.3 thou/uL (4.8-10.8)
[2017-06-26] MEDS: Amlodipine 5 mg/Benazepril 10 mg CAP PO SCH (09:28)
[2017-06-26] MEDS: Potassium Chloride 20 MEQ TAB PO SCH (09:28)
[2017-06-26] MEDS: Enoxaparin Sodium 30 MG/0.3 ML SYRINGE SC SCH (09:29)
[2017-06-26] MEDS: Timolol 0.5% Ophth Soln 5 ml Bottle EA EYE SCH ×2 (09:30→20:09)
[2017-06-26] MEDS: cefTRIAXone\\ROCEPHIN 2 GM in Sodium Chloride 0.9% 100 ML IVPB SCH ×2 (18:02→22:10)
[2017-06-26] MEDS: Famotidine 20 MG TAB PO SCH (20:07)
[2017-06-26] MEDS: Latanoprost 0.005% Ophth Soln 2.5 ml Bottle EA EYE SCH (20:09)
--- NOTE | 2017-06-26 21:59 | PDOC.PN ---
- Subjective Encounter Start Date: 06/26/17 Encounter Start Time: 10:00 PT continues to be nausea free, eating well. Denies F/C, no N/V/D/c. no CP or SOB. Case discussed with Dr Wing, plans to take her in the afternoon tomorrow for stone extraction from her ileal conduit system. Pt tolerating her rocephin well, no utching or rashes. Updated the patient to the current plan. 10 point ROS performed and neg for all systems except as above - Objective Resuscitation Status: Resuscitation Status FULL:Full Resuscitation MAR Reviewed: Yes Vital Signs & Weight: Vital Signs (12 hours) Temp Pulse Resp BP BP Pulse Ox 06/26/17 20:09 78 143/68 H 06/26/17 20:00 98.1 F 74 18 117/68 94 L Weight Admit Weight 152 lb Weight 152 lb I&O: 06/25/17 06/26/17 06/27/17 06:59 06:59 06:59 Intake Total 1240 1110 Output Total 1450 Balance -210 1110 Result Diagrams: 06/26/17 04:07 06/26/17 04:07 Phys Exam - Physical Examination Constitutional: NAD HEENT: PERRLA, moist MMs, sclera anicteric, oral pharynx no lesions Neck: no nodes, no JVD, supple, full ROM Respiratory: no wheezing, no rales, no rhonchi, clear to auscultation bilateral Cardiovascular: RRR, no significant murmur, no rub Gastrointestinal: soft, non-tender, no distention, positive bowel sounds Musculoskeletal: no edema, pulses present Neurological: non-focal, normal sensation, moves all 4 limbs Lymphatic: no nodes Psychiatric: normal affect, A&O x 3 Skin: no rash, normal turgor, cap refill <2 seconds Dx/Plan (1) Bilateral nephrolithiasis Code(s): N20.0 - CALCULUS OF KIDNEY Status: Chronic Comment: per Dr Wing. continue abx. suspect infected stones, will need abx after any procedure, CCM at present. UCx with Strep, morganella, E coli. Bcx 1/2 with Morganella, the other with E coli. Cx of urine from ileal conduit. Stone remal tomorrow from uleal system, no plans to remove large stone. (2) DONTE (acute kidney injury) Code(s): N17.9 - ACUTE KIDNEY FAILURE, UNSPECIFIED Status: Acute Comment: Resolving with supportive measures, limit contrast exposure and nephrotoxic meds (3) Acute pyelonephritis Code(s): N10 - ACUTE PYELONEPHRITIS Status: Acute Comment: Clinically appears improved but leukocytosis remains though markedly improved, continue Rocephin, follow up Urology (4) Hypokalemia Code(s): E87.6 - HYPOKALEMIA Status: Acute Comment: Improved, serial monitoring (5) Moderate dehydration Code(s): E86.0 - DEHYDRATION Status: Resolved Comment: Continue with IV fluids, Good urine output. (6) Neutrophilic leukocytosis Code(s): D72.9 - DISORDER OF WHITE BLOOD CELLS, UNSPECIFIED Status: Acute Comment: Persistent, add Rocephin, improvedm AM CBC (7) Other septicemia due to Gram-negative organism Code(s): A41.59 - OTHER GRAM-NEGATIVE SEPSIS Status: Acute Comment: Add Rocephin 2gm IV daily as leukocytosis persists, d/c'd Meropenem. E coli and Morganella. continue rocephin (8) SBO (small bowel obstruction) Code(s): K56.609 - UNSP INTESTNL OBST, UNSP TO PARTIAL VERSUS COMPLETE OBST Status: Resolved Comment: Resolved with conservative mgmt, appreciate Gen Surgery assistance - Plan cont current plan of care, continue antibiotics, PT/OT, out of bed/ambulate * .
[2017-06-27 04:57] LABS: Anion Gap 9 mmol/L (10-20); BUN (Urea Nitrogen) 13 mg/dL (9.8-20.1); Calc. Creatinine Clearance 65 mL/min (70-130); Calcium 8.6 mg/dL (7.8-10.44); Carbon Dioxide 25 mmol/L (23-31); Chloride 102 mmol/L (98-107); Estimated GFR-MDRD Greater than 90; Glucose 76 mg/dL (83-110); Magnesium 1.7 mg/dL (1.6-2.6); Potassium 4.2 mmol/L (3.5-5.1); Sodium 132 mmol/L (136-145)
[2017-06-27 05:10] LABS: Band 5 % (5-11); Hemoglobin 10.4 g/dL (12.0-16.0); Lymphocytes 7 % (21-51); MDiff Complete? YES; Mean Corpuscular HGB CONC 32.9 g/dL (32.0-36.0); Mean Corpuscular Hemoglobin 26.6 pg (27.0-31.0); Mean Corpuscular Volume 80.8 fl (81.0-99.0); Mean Platelet Volume 7.7 fL (7.4-10.4); Monocytes 8 % (0-10); Neutrophil 80 % (42-75); Platelet Count 399 thou/uL (130-400); RBC Distribution Width 13.1 % (11.5-14.5); White Blood Cell (WBC) Count 13.8 thou/uL (4.8-10.8)
[2017-06-27] MEDS: Enoxaparin Sodium 30 MG/0.3 ML SYRINGE SC SCH (08:48)
[2017-06-27] MEDS ORDERED: Fentanyl 250 MCG/5 ML VIAL ONE (14:53)
[2017-06-27] MEDS ORDERED: ePHEDrine/0.9% NaCl/PF SYRINGE 50 mg/10 ml ONE (15:00)
[2017-06-27] MEDS ORDERED: Glycopyrrolate 0.2 MG/ML 5 ML SYRINGE ONE (15:00)
[2017-06-27] MEDS ORDERED: PHENYLEPHRINE-NS 100 MCG/ML 10 ML SYRINGE ONE (15:00)
[2017-06-27] MEDS ORDERED: Ondansetron HCl/PF 4 MG/2 ML Vial ONE (15:00)
[2017-06-27] MEDS ORDERED: Lidocaine 1% PF 5 ML VIAL ONE (15:00)
[2017-06-27] MEDS ORDERED: PROPOFOL 200 MG/20 ML VIAL ONE (15:00)
[2017-06-27] MEDS ORDERED: Iothalamate Meglumine 60% 50 ML VIAL FS ONE (15:03)
[2017-06-27] MEDS: Timolol 0.5% Ophth Soln 5 ml Bottle EA EYE SCH ×2 (15:50→20:05)
[2017-06-27] MEDS ORDERED: Ondansetron HCl/PF 4 MG/2 ML Vial IVP PRN (16:03)
[2017-06-27] MEDS ORDERED: Promethazine HCl 25 MG/ML VIAL IM PRN (16:03)
[2017-06-27] MEDS ORDERED: Promethazine HCl 25 MG/ML VIAL SLOW IVP PRN (16:03)
[2017-06-27] MEDS: Potassium Chloride 20 MEQ TAB PO SCH (18:31)
[2017-06-27] MEDS: cefTRIAXone\\ROCEPHIN 2 GM in Sodium Chloride 0.9% 100 ML IVPB SCH (18:31)
[2017-06-27] MEDS: Amlodipine 5 mg/Benazepril 10 mg CAP PO SCH (18:31)
--- NOTE | 2017-06-27 18:45 | OP ---
DATE OF PROCEDURE: 06/27/2017 PREOPERATIVE DIAGNOSES: Stone ileal conduit, urinary tract infection. POSTOPERATIVE DIAGNOSES: Stone ileal conduit, urinary tract infection. PROCEDURE: Cystolitholapaxy. SURGEON: Spencer Wing MD ANESTHESIA: General. INDICATIONS: Ms. 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 She presented to the hospital with nausea and vomiting and findings consistent with small-bowel obstruction. She had positive uri ne and blood cultures. Imaging also revealed a large (4 cm) stone in the ileal conduit along with a 1.3 x 2.7 cm staghorn calculus in the left kidney. She has been receiving IV antibiotic therapy and was managed in regards to the small-bowel obstruction with nasogastric suction. She is now eating. We have recommended treatment of the stone disease in hopes of minimizing her risk of future infectio n. She is being brought to the operating room for treatment of the stone in the ileal conduit. DETAILS OF PROCEDURE: The patient was given general anesthesia and IV antibiotics were continued. S he was sterilely prepped and draped in the supine position. The cystoscope was passed into the ileal conduit to the level of the stone. Sequential dilation of the stoma was performed with the percutan eous access kit and a 28-[place] working sheath was placed into the ileal conduit. The nephroscope wa s utilized along with the ultrasonic lithotripter to fragment and remove the 4-cm stone. No abnormal findings were noted in the ileal conduit other than a significant amount of mucus appearing material that was adherent to the bowel wall. Attempts were made to scrape this material free, although it c annot be removed in its entirety. At the termination of procedure, there was no residual stone. The working sheath and scope were removed. The patient tolerated the procedure well. She was transferr ed from the operating room to recovery room in stable condition. COMPLICATIONS: None. ESTIMATED BLOOD LOSS: Minimal.
[2017-06-27] MEDS: Famotidine 20 MG TAB PO SCH (20:04)
[2017-06-27] MEDS: Latanoprost 0.005% Ophth Soln 2.5 ml Bottle EA EYE SCH (20:05)
--- NOTE | 2017-06-27 21:16 | PDOC.PN ---
- Subjective Encounter Start Date: 06/27/17 Encounter Start Time: 11:55 PT complaining of episodic crampy mid abdominal pain. NO F/C, no N/V, no D.c. Family at bedside. NPO in anticipation of cyto today for stone extraction from her ileal conduit. 10 point ROS performed and neg for all systems except as per hPI - Objective Resuscitation Status: Resuscitation Status FULL:Full Resuscitation MAR Reviewed: Yes Vital Signs & Weight: Vital Signs (12 hours) Temp Pulse Resp BP BP BP Pulse Ox 06/27/17 20:05 79 136/71 06/27/17 18:20 97.6 F 79 20 167/74 H 94 L 06/27/17 15:50 77 06/27/17 12:00 98.2 F 77 16 137/77 98 Weight Admit Weight 152 lb Weight 152 lb I&O: 06/26/17 06/27/17 06/28/17 06:59 06:59 06:59 Intake Total 1240 1710 Output Total 1450 550 Balance -210 1160 Result Diagrams: 06/27/17 04:08 06/27/17 04:08 Phys Exam - Physical Examination Constitutional: NAD HEENT: PERRLA, moist MMs, sclera anicteric, oral pharynx no lesions Neck: no nodes, no JVD, supple, full ROM Respiratory: no wheezing, no rales, no rhonchi, clear to auscultation bilateral Cardiovascular: RRR, no significant murmur, no rub Gastrointestinal: soft, non-tender, no distention, positive bowel sounds Musculoskeletal: no edema, pulses present Neurological: non-focal, normal sensation, moves all 4 limbs Lymphatic: no nodes Psychiatric: normal affect, A&O x 3 Skin: no rash, normal turgor, cap refill <2 seconds Dx/Plan (1) Bilateral nephrolithiasis Code(s): N20.0 - CALCULUS OF KIDNEY Status: Chronic Comment: per Dr Wing. continue abx. suspect infected stones, will need abx after any procedure, CCM at present. UCx with Strep, morganella, E coli. Bcx 1/2 with Morganella, the other with E coli. Cx of urine from ileal conduit. Stone removal today from ileal system, no plans to remove large stone from kidney. (2) DONTE (acute kidney injury) Code(s): N17.9 - ACUTE KIDNEY FAILURE, UNSPECIFIED Status: Acute Comment: Resolving with supportive measures, limit contrast exposure and nephrotoxic meds (3) Acute pyelonephritis Code(s): N10 - ACUTE PYELONEPHRITIS Status: Acute Comment: Clinically appears improved but leukocytosis remains though markedly improved, continue Rocephin, follow up Urology (4) Hypokalemia Code(s): E87.6 - HYPOKALEMIA Status: Acute Comment: Improved, serial monitoring (5) Moderate dehydration Code(s): E86.0 - DEHYDRATION Status: Resolved Comment: Continue with IV fluids, Good urine output. (6) Neutrophilic leukocytosis Code(s): D72.9 - DISORDER OF WHITE BLOOD CELLS, UNSPECIFIED Status: Acute Comment: Persistent, add Rocephin, improvedm AM CBC (7) Other septicemia due to Gram-negative organism Code(s): A41.59 - OTHER GRAM-NEGATIVE SEPSIS Status: Acute Comment: Add Rocephin 2gm IV daily as leukocytosis persists, d/c'd Meropenem. E coli and Morganella. continue rocephin (8) SBO (small bowel obstruction) Code(s): K56.609 - UNSP INTESTNL OBST, UNSP TO PARTIAL VERSUS COMPLETE OBST Status: Resolved Comment: Resolved with conservative mgmt, appreciate Gen Surgery assistance - Plan * .
[2017-06-28 04:51] LABS: #Eosinphils 0.2 thou/uL (0.0-0.7); #Lymphocytes 1.1 thou/uL (1.20-3.40); #Monocytes 0.9 thou/uL (0.11-0.59); #Neutrophils 9.6 thou/uL (1.40-6.50); %Basophils 0.2 % (0.0-1.0); %Eosinophils 1.7 % (0.0-10.0); %Monocytes 7.8 % (0.0-10.0); %Neutrophils 81.3 % (42.0-75.0); Hemoglobin 9.8 g/dL (12.0-16.0); Mean Corpuscular HGB CONC 33.3 g/dL (32.0-36.0); Mean Corpuscular Hemoglobin 27.1 pg (27.0-31.0); Mean Corpuscular Volume 81.5 fl (81.0-99.0); Mean Platelet Volume 7.3 fL (7.4-10.4); Platelet Count 473 thou/uL (130-400); RBC Distribution Width 13.1 % (11.5-14.5); Red Blood Cell (RBC) Count 3.61 mill/uL (4.20-5.40); White Blood Cell (WBC) Count 11.8 thou/uL (4.8-10.8)
[2017-06-28 05:13] LABS: Anion Gap 11 mmol/L (10-20); BUN (Urea Nitrogen) 12 mg/dL (9.8-20.1); Calc. Creatinine Clearance 62 mL/min (70-130); Calcium 8.3 mg/dL (7.8-10.44); Carbon Dioxide 23 mmol/L (23-31); Chloride 104 mmol/L (98-107); Estimated GFR-MDRD 89; Glucose 65 mg/dL (83-110); Magnesium 1.8 mg/dL (1.6-2.6); Potassium 4.3 mmol/L (3.5-5.1); Sodium 134 mmol/L (136-145)
[2017-06-28] MEDS: Potassium Chloride 20 MEQ TAB PO SCH (08:52)
[2017-06-28] MEDS: Enoxaparin Sodium 30 MG/0.3 ML SYRINGE SC SCH (08:52)
[2017-06-28] MEDS: Timolol 0.5% Ophth Soln 5 ml Bottle EA EYE SCH ×2 (08:52→20:51)
[2017-06-28] MEDS: Amlodipine 5 mg/Benazepril 10 mg CAP PO SCH (08:53)
--- NOTE | 2017-06-28 10:46 | PRG ---
DATE OF SERVICE: 06/28/2017 SUBJECTIVE: The patient did well overnight. She has some soreness in her abdomen, but otherwise no significant pain. Her ostomy is draining without difficulty. OBJECTIVE: VITAL SIGNS: Have been stable. ABDOMEN: On exam, the ostomy is pink with a slightly opaque bag filled with pink-tinged urine. LABORATORY DATA: White count is down to 11.8. Her creatinine is stable at 0.75 and it has been up t o 3 previously. ASSESSMENT AND PLAN: We have an 82-year-old female status post lithotripsy of her ileal conduit maxine rodriguez who has a remaining staghorn. The lithotripsy procedure was performed by Dr. Wing who is coveri ng for Dr. Herrera and she is happy to follow back up with him regarding the staghorn as to whether t o do something or not as an outpatient.
[2017-06-28] MEDS: cefTRIAXone\\ROCEPHIN 2 GM in Sodium Chloride 0.9% 100 ML IVPB SCH (16:25)
[2017-06-28] MEDS: Famotidine 20 MG TAB PO SCH (20:50)
[2017-06-28] MEDS: Latanoprost 0.005% Ophth Soln 2.5 ml Bottle EA EYE SCH (20:52)
--- NOTE | 2017-06-28 21:00 | PDOC.PN ---
- Subjective Encounter Start Date: 06/28/17 Encounter Start Time: 12:40 Pt feeling much better. Dr Torres just in covering for Dr Wing for weekend and cleared to to go from aurologic stand point. No F/C, no N/V/D/C, maki po. PT getting up. Pt agreeable to D/C in AM on po antibiotics - Objective Resuscitation Status: Resuscitation Status FULL:Full Resuscitation MAR Reviewed: Yes Vital Signs & Weight: Vital Signs (12 hours) Pulse 06/28/17 20:51 78 Weight Admit Weight 152 lb Weight 152 lb I&O: 06/27/17 06/28/17 06/29/17 06:59 06:59 06:59 Intake Total 1710 Output Total 550 525 Balance 1160 -525 Result Diagrams: 06/29/17 03:44 06/29/17 03:44 Radiology Reviewed by me: Yes EKG Reviewed by me: Yes Phys Exam - Physical Examination Constitutional: NAD HEENT: PERRLA, moist MMs, sclera anicteric, oral pharynx no lesions Neck: no nodes, no JVD, supple, full ROM Respiratory: no wheezing, no rales, no rhonchi, clear to auscultation bilateral Cardiovascular: RRR, no significant murmur, no rub Gastrointestinal: soft, non-tender, no distention, positive bowel sounds Musculoskeletal: no edema, pulses present Neurological: non-focal, normal sensation, moves all 4 limbs Lymphatic: no nodes Psychiatric: normal affect, A&O x 3 Skin: no rash, normal turgor, cap refill <2 seconds Dx/Plan (1) Bilateral nephrolithiasis Code(s): N20.0 - CALCULUS OF KIDNEY Status: Chronic Comment: per Dr Wing. continue abx. suspect infected stones, will need abx after any procedure, CCM at present. UCx with Strep, morganella, E coli. Bcx 1/2 with Morganella, the other with E coli. Cx of urine from ileal conduit. Stone removal today from ileal system, no plans to remove large stone from kidney. (2) DONTE (acute kidney injury) Code(s): N17.9 - ACUTE KIDNEY FAILURE, UNSPECIFIED Status: Acute Comment: Resolving with supportive measures, limit contrast exposure and nephrotoxic meds (3) Acute pyelonephritis Code(s): N10 - ACUTE PYELONEPHRITIS Status: Acute Comment: Clinically appears improved but leukocytosis remains though markedly improved, continue Rocephin, follow up Urology (4) Hypokalemia Code(s): E87.6 - HYPOKALEMIA Status: Acute Comment: Improved, serial monitoring (5) Moderate dehydration Code(s): E86.0 - DEHYDRATION Status: Resolved Comment: Continue with IV fluids, Good urine output. (6) Neutrophilic leukocytosis Code(s): D72.9 - DISORDER OF WHITE BLOOD CELLS, UNSPECIFIED Status: Acute Comment: Persistent, add Rocephin, improvedm AM CBC (7) Other septicemia due to Gram-negative organism Code(s): A41.59 - OTHER GRAM-NEGATIVE SEPSIS Status: Acute Comment: Add Rocephin 2gm IV daily as leukocytosis persists, d/c'd Meropenem. E coli and Morganella. continue rocephin (8) SBO (small bowel obstruction) Code(s): K56.609 - UNSP INTESTNL OBST, UNSP TO PARTIAL VERSUS COMPLETE OBST Status: Resolved Comment: Resolved with conservative mgmt, appreciate Gen Surgery assistance - Plan cont current plan of care, continue antibiotics, out of bed/ambulate * . D/C in AM on po levoflox and augmentin
[2017-06-29 05:44] LABS: Anion Gap 12 mmol/L (10-20); BUN (Urea Nitrogen) 14 mg/dL (9.8-20.1); Calc. Creatinine Clearance 49 mL/min (70-130); Calcium 9.2 mg/dL (7.8-10.44); Carbon Dioxide 23 mmol/L (23-31); Chloride 102 mmol/L (98-107); Estimated GFR-MDRD 68; Glucose 100 mg/dL (83-110); Magnesium 1.7 mg/dL (1.6-2.6); Potassium 4.8 mmol/L (3.5-5.1); Sodium 132 mmol/L (136-145)
[2017-06-29 06:05] LABS: Band 5 % (5-11); Eosinophils 2 % (0-10); Hemoglobin 10.3 g/dL (12.0-16.0); Lymphocytes 14 % (21-51); MDiff Complete? YES; Mean Corpuscular Hemoglobin 26.3 pg (27.0-31.0); Mean Corpuscular Volume 82.2 fl (81.0-99.0); Mean Platelet Volume 7.2 fL (7.4-10.4); Monocytes 7 % (0-10); Neutrophil 72 % (42-75); Platelet Count 576 thou/uL (130-400); RBC Distribution Width 13.2 % (11.5-14.5); Red Blood Cell (RBC) Count 3.93 mill/uL (4.20-5.40); White Blood Cell (WBC) Count 10.5 thou/uL (4.8-10.8)
[2017-06-29 07:33] VITALS: BP 103/59; TEMP 98.5
[2017-06-29] MEDS: Amlodipine 5 mg/Benazepril 10 mg CAP PO SCH (08:27)
[2017-06-29] MEDS: Enoxaparin Sodium 30 MG/0.3 ML SYRINGE SC SCH (08:27)
[2017-06-29] MEDS: Potassium Chloride 20 MEQ TAB PO SCH (08:27)
[2017-06-29] MEDS: Timolol 0.5% Ophth Soln 5 ml Bottle EA EYE SCH (08:29)
[2017-06-29] MEDS ORDERED: Loperamide HCl 2 MG CAP PO SCH (09:30)
[2017-06-29] MEDS ORDERED: cefTRIAXone\\ROCEPHIN 2 GM in Sodium Chloride 0.9% 100 ML IVPB SCH (09:30)
[2017-06-29] MEDS ORDERED: Saccharomyces boulardii 250 MG CAP PO SCH (09:30)
--- NOTE | 2017-06-29 15:42 | DIS ---
DATE OF ADMISSION: 06/18/2017 DATE OF DISCHARGE: 06/29/2017 DISCHARGE DIAGNOSES: 1. Small-bowel obstruction, resolved. 2. Complicated urinary tract infection. 3. Ileal conduit, obstructive uropathy. 4. Renal calculus. 5. Moderate dehydration. 6. Acute pyelonephritis. 7. Acute kidney injury. 8. Hypokalemia. 9. Gram-negative tangela bacteremia with Escherichia coli and Morganella. CONSULTATIONS: 1. General Surgery, Flor Rosales and Trauma Service. 2. Nephrology, Dr. Velvet Brito. 3. Urology, Dr. Spencer Wing. All on 06/18/2017. PROCEDURES: 1. Vascular ultrasound on 06/22/2017 that showed normal lumen compressibility and flow augmentation of the deep venous structures of the left lower extremity and no evidence of DVT, no evidence of pop liteal fossa cystic structures. 2. On 06/27/2017, the patient underwent cystoscopy, ileal conduit cystoscopy, cystolitholapaxy and e xtraction of stone fragments. HISTORY AND PHYSICAL: Ms. Lo is an 82-year-old -[place] female with a history of chroni c ureteral obstruction, status post ileal conduit for recurrent obstruction, who [facility] for evaluation of abdominal pain. She lives at home independently, h ad acute onset of sudden abdominal pain, went to [place] emergency Department and was admitted there by her primary care physician, Dr. Lyles, and started IV antibiotics with Zosyn. She was di agnosed with UTI. Urine was collected there that showed a positive culture even though she has ileal conduit and white blood cell count there was 25,000. [facility]. On the day of admission from an inpatient status and CT abdomen here showed eviden ce of a small-bowel obstruction and possible mass-like lesion on the CT of the left lower quadrant. General Surgery was consulted. The patient was given NG tube with intermittent suction. We were ask ed to admit. HOSPITAL COURSE: The patient was seen and examined by Dr. Daniel Grant and accepted to our service. She will continue IV antibiotics with levofloxacin, Zosyn, and urine culture and blood cultures were monitored. She was given IV fluids 100 mL per hour for rehydration and NG tube was placed with bowel rest. She was started on DVT prophylaxis with Lovenox and was placed on the floor. On 06/18/2017, she was seen by Trauma Service, Nephrology for acute on chronic kidney disease and Uro logy, Dr. Wing. Urology reviewed information from her urologist, Dr. Herrera, in [place] for a pr ocedure almost 20 years ago. It was not felt that she has persistent or recurrent bladder cancer, bu t did have stones present. She was found to have the expected amount of hydroureteronephrosis seen a nd the patient with ileal conduit and repeat CT scan was ordered to look at the calcification to make sure it was not related to bowel obstruction. She was continued on aggressive management with antib iotics and watching. A CT scan was done that showed a large 40 mm calcification in the right lower quadrant abdominal cavi ty of the pelvic inlet. It is unsure whether it was in the ileal pouch, neobladder or was a gallston e ileus. The patient was seen by Surgery that afternoon and no plans were made for a surgical interv ention. From 06/18/2017 to 06/19/2017, the patient remained nauseated. She was having low grade temperatures , but otherwise seem to be tolerating the antibiotics. She continued on NG tube with intermittent silva ction. By 06/20/2017, the patient was awake and alert. No significant changes. She continued on NG tube silva ction and supportive care with IV fluids and antibiotics. On 06/23/2017, care was assumed by Dr. Ford. Urinary culture was growing E. coli and Morganella. Th e patient had a persistent leukocytosis, but no fever, but overall was starting to feel a little bit better. From 06/23/2017 to 06/25/2017, there was no large change. Case has been reviewed. Her antibiotics w ere streamlined to Rocephin daily. She remained afebrile and was able to eat for the first time in . By 06/27/2017, she was feeling better. Urine cultures and blood cultures were also susceptible to Ro cephin she was continued on. Dr. Wing revisited and felt that he was able to get the equipment ne eded to remove her ileal conduit stone and plans were made to perform that procedure on the . On 06/27/2017, she did undergo stone extraction. Overnight 06/27/2017 to 06/28/2017, she remained stable. She was able to continue eating without any difficulty. She had no fever. Her white blood cell count almost normalized. Today, 06/29/2017, white count is normal, she is afebrile, she is tolerating p.o., and was stable for discharge with outpatient followup. PHYSICAL EXAMINATION: The patient was seen and examined on the day of discharge. Discharge plan and disposition were discu ssed with the patient face to face at the bedside. DISCHARGE MEDICATIONS: 1. Augmentin 875/125 one p.o. b.i.d. for 10 more days. 2. Levofloxacin 500 mg p.o. daily for 10 more days. 3. Tramadol 50 mg p.o. q.6 hours p.r.n., prescription for 20 tablets and no refills given. 4. Amlodipine/benazepril 10/20 one p.o. daily. 5. Latanoprost 0.005% 1 drop each eye at bedtime. 5. Timolol 0.5% one drop each eye b.i.d. FOLLOWUP APPOINTMENTS: 1. Primary care physician, Dr. Lyles within a week. 2. Follow up with her urologist, Dr. Herrera as scheduled. 3. Follow up with Dr. Wing in 2 to 3 weeks. DISCHARGE CONDITION: Stable. DISPOSITION: To be discharged home via private vehicle. DISCHARGE ACTIVITY: As tolerated. DISCHARGE DIET: Heart healthy recommended.
--- NOTE | 2017-07-03 10:20 | PQF ---
HOA CASAS CAITY HERNANDEZ [id number] CLINICAL DOCUMENTATION CLARIFICATION FORM: POST DISCHARGE Addendum to original discharge summary date: 06/29/2017 DATE: 07/03/2017 ATTN: Dr. Hart Please exercise your independent, professional judgment in responding to the clarification form. Clinical indicators are provided on the bottom of this form for your review Please check appropriate box(s): Conflicting documentation was noted in the Medical Record, please clarify if patient is being treated/monitored for: [ x ] Gram-negative severe sepsis with Escherichia Coli and Morganella [ ] Gram-negative tangela bacteremia with Escherichia Coli and Morganella [ ] Other diagnosis (please specify) [ ] Unable to determine In addition, please specify: Present on Admission (POA): [ x ] Yes [ ] No [ ] Unable to determine For continuity of documentation, please document condition throughout progress notes and discharge summary. Thank You. CLINICAL INDICATORS - SIGNS / SYMPTOMS/ LABS Per H&P: Severe sepsis. Per Hospitalist Progress Notes: Other septicemia due to Gram-negative organism (E Coli and Morganella). Per discharge summary: Gram-negative tangela bacteremia with Escherichia coli and Morganella. RISK FACTORS (per H&P/progress notes) Ileal conduit stone with acute pyelonephritis. TREATMENT (per progress notes) IV Meropenem. IV Rocephin. (This form is maintained as a part of the permanent medical record) 2014 [employer]. All Rights Reserved Alexandrea [email or web address] [phone] MTDD
--- NOTE | 2017-07-09 22:58 | EKG ---
Test Reason : Blood Pressure : / mmHG Vent. Rate : 074 BPM Atrial Rate : 074 BPM P-R Int : 140 ms QRS Dur : 090 ms QT Int : 400 ms P-R-T Axes : 059 -15 033 degrees QTc Int : 444 ms Normal sinus rhythm Normal ECG When compared with ECG of 18-JUN-2017 10:00, (Unconfirmed) No significant change was found Confirmed by Karma OTT ([id number]) on 07/09/2017 10:58:42 PM Referred By: THANG Confirmed By:Karma OTT
--- NOTE | 2017-07-24 15:05 | EKG ---
Test Reason : NAUSEA Blood Pressure : / mmHG Vent. Rate : 092 BPM Atrial Rate : 092 BPM P-R Int : 116 ms QRS Dur : 068 ms QT Int : 378 ms P-R-T Axes : 060 -02 031 degrees QTc Int : 467 ms Normal sinus rhythm Normal ECG Confirmed by ALEXEI CANADA ([id number]), editor city JOCELYNN RAMAN ([id number]) on 07/24/2017 3:03:56 PM Referred By: NANCIE Confirmed By:ALEXEI CANADA
== END 2017-06-29 14:09 | disposition home or self-care (01) | DRG 698 ==
LOC: ERS 09:20 → T4-A 11:28
PROVIDERS: ADMIT Family Medicine; ATTEND Family Medicine
PROC: 0TCB8ZZ Extirpation of Matter from Bladder, Via Natural or Artificial Opening Endoscopic (ICD-10-PCS; principal; 2017-06-27)
DX: N99.528 Other complication of incontinent external stoma of urinary tract (principal); A41.51 Sepsis due to Escherichia coli [E. coli]; A41.59 Other Gram-negative sepsis; N17.9 Acute kidney failure, unspecified; K56.600 Partial intestinal obstruction, unspecified as to cause; E87.2 Acidosis; N13.6 Pyonephrosis; R65.20 Severe sepsis without septic shock; N21.8 Other lower urinary tract calculus; E88.09 Other disorders of plasma-protein metabolism, not elsewhere classified; N20.0 Calculus of kidney; E87.6 Hypokalemia; I12.9 Hypertensive chronic kidney disease with stage 1 through stage 4 chronic kidney disease, or unspecified chronic kidney disease; N18.9 Chronic kidney disease, unspecified; E86.0 Dehydration; Z85.51 Personal history of malignant neoplasm of bladder; Z79.899 Other long term (current) drug therapy; Z90.6 Acquired absence of other parts of urinary tract
CPT/HCPCS: 36415; 71045; 74018; 74176; 74250; 76001; 80048; 81003; 81015; 83605; 83735; 84134; 84145; 85007; 85025; 85027; 87040; 87070; 87076; 87077; 87086; 87149; 87186; 87205; 87324; 87449; 93005; 93010; 96360; 96361; A4216; C1769; G8978-GP-CK; G8979-GP-CJ; G8987-GO-CJ; G8988-GO-CH; J0696; J1650; J1956; J2001; J2060; J2185; J2405; J2543; J2704; J3010; J7050; Q9961

== ENCOUNTER 2018-12-02 13:43 | Inpatient (IN) | payer MEDICARE, BC ==
[2018-12-02 15:00] LABS: Lactic Acid 3.7 mmol/L (0.5-2.2)
[2018-12-02] MEDS ORDERED: HYDROcodone/Acetaminophen 10/325 mg Tablet PO PRN (18:44)
[2018-12-02] MEDS ORDERED: HYDROcodone/Acetaminophen 5/325 mg Tablet PO PRN (18:44)
[2018-12-02] MEDS ORDERED: Ondansetron PF 4 MG/2 ML Vial IVP PRN (18:44)
[2018-12-02] MEDS ORDERED: Acetaminophen 325 MG TAB PO PRN (18:44)
[2018-12-02] MEDS ORDERED: Ondansetron ODT 4 MG TAB PO PRN (18:44)
[2018-12-02 19:15] VITALS: BMI 21.8
[2018-12-02] MEDS: hydrALAZINE 25 MG TAB PO SCH (19:48)
[2018-12-02] MEDS: Latanoprost 0.005% Ophth Soln 2.5 ml Bottle EA EYE SCH (19:54)
[2018-12-02] MEDS: Lactated Ringer's 1,000 ML IV SCH (19:54)
[2018-12-02] MEDS: Timolol 0.5% Ophth Soln 5 ml Bottle EA EYE SCH (19:55)
[2018-12-02] MEDS: Piperacillin/Tazobactam 3.375 GM in Sodium Chloride 0.9% 100 ML IVPB SCH (23:40)
[2018-12-03] MEDS: Piperacillin/Tazobactam 3.375 GM in Sodium Chloride 0.9% 100 ML IVPB SCH ×3 (01:28→12:54)
--- NOTE | 2018-12-03 02:10 | HP ---
PRIMARY CARE PHYSICIAN: Leon Lyles MD. CHIEF COMPLAINT/REASON FOR ADMISSION: "My abdomen was hurting earlier, but getting better." HISTORY OF PRESENT ILLNESS: Ms. Lo is a pleasant 83-year-old female, familiar to the Hospitalist Service from an admission 2017 through 06/29/2017, during which time she was treated for small-bowel obstruction, complicated urinary tract infection, renal calculus, and pyelonephritis. At that time, she was noted to be bacteremic with gram-negative rods, Escherichia coli, morganella. Ms. Lo resides in [place], presented to the hospital there today for evaluation of 2-day history of acute illness. Endorses abdominal pain, epigastric in location, with radiation into the back, associated with chills. Subjective fever at home present. Some diarrhea. She has not been eating well the last couple of days, her friend brought her some beef broth to try. No emesis, did have some gagging yesterday. At the time of my evaluation, she is generally feeling better. She denies any nausea or discomfort at this time. She was initially seen in [place] and then subsequently transferred to [facility] for additional evaluation and care. Notably, workup thus far has included an abdominal ultrasound, which showed evidence of cholelithiasis, but no evidence of gallbladder sludge or ductal dilatation. She was noted to have elevated lactic acid as well as elevated white blood cell count, concerning for interval development of abdominal infection/sepsis. As such, recommendation made to admit to the hospital for additional evaluation and care. Additional pertinent history includes the presence of a urostomy, performed in the context of bladder surgery in 1995 for bladder cancer. This was curative. No change in urostomy output. PAST MEDICAL HISTORY: 1. Essential hypertension. 2. History of bladder cancer status post resection/urostomy. 3. History of small bowel obstruction, July 2017. 4. History of nephrolithiasis. 5. Glaucoma. 6. May 2017, episode of acute renal failure, maximum creatinine 3.5, with return to baseline creatinine 0.9 per record review (most recent creatinine on 2018 of 0.9). PAST SURGICAL HISTORY: 1. Hysterectomy. 2. History of bladder surgery/urostomy in 1995 as above. SOCIAL HISTORY: Former history of tobacco dependence, quit greater than 10 years ago. No alcohol use. No illicit drug use. FAMILY HISTORY: Sister has a history of breast cancer. HOME MEDICATIONS: Includes, 1. Amlodipine/benazepril 5/20 p.o. once daily. 2. Timolol eye drops 0.5% one drop to each eye twice daily. 3. Latanoprost 0.005% two drops to each eye daily. ALLERGIES: NO KNOWN DRUG ALLERGIES. REVIEW OF SYSTEMS: She endorses dry mouth. She says her appetite is improving. This evening, she is eager to try a diet. Remainder of the full review of systems reviewed/addressed/negative except otherwise as mentioned. PHYSICAL EXAMINATION: VITAL SIGNS: Blood pressure 105/57, pulse 97, respiratory rate 20, temperature 98.6. Followup vital signs documented on ER notes from 1630 show respiratory rate of 24, pulse of 91, saturating 93% on room air. GENERAL: This is a somewhat frail-appearing elderly female, lying in bed, able to speak in full sentences. HEENT: Eyes, muddy sclerae are present. Pupils are reactive to light bilaterally. Oropharynx, mucous membranes are dry. Lips are cracked. NECK: Supple. Full range of motion. HEART: Regular rate and rhythm. Soft systolic right upper sternal border murmur. LUNGS: Clear to auscultation bilaterally. ABDOMEN: Fairly soft, minimally tender epigastric area. Urostomy bag is in place. Clear yellow urine output noted. EXTREMITIES: Without clubbing/cyanosis/edema. NEUROLOGIC: She is able to move all extremities bilaterally to command. No focal neurological deficits. LABORATORY/DATA REVIEW: Lab evaluation includes white blood cell count of 12.4, hemoglobin 11.2, hematocrit 36.9, platelet count of 132. Chemistry panel; serum sodium 135, carbon dioxide 16, BUN 53, creatinine 4.3, lactic acid 3.7. Elevated LFTs present. AST 72, ALT 100, alk phos 365. Pre-albumin of 10 was noted back in May 2017. Today's creatinine is 4.38. Urine study noted to have protein, ketones, blood, leukocyte esterase, multiple squamous epithelial cells. Abdominal ultrasounds reviewed from today, 12/02/2018, showing no intrahepatic or extrahepatic biliary dilatation, common bile duct measured 4 mm, cholelithiasis present, no pericalyceal dilatation. IMPRESSION: 1. Sepsis secondary to suspected intra-abdominal source, with evidence of elevated lactic acid, subjective temperature, white blood cell count greater than 12,000, pulse is greater than 90, respiratory rate greater than 20. 2. Acute renal failure, in the context of urostomy. PLAN: 1. Infectious Disease - expect colonized urostomy. Check blood cultures x2, treat empirically with Zosyn. At this time, gallbladder may be a source of infection 2. Renal - acute renal failure, hydration/monitor, metabolic acidosis also present, no need at this time for acute renal replacement therapy. Request General Nephrology consultation as available, the patient has seen Dr. Brito in the past. 3. Deep vein thrombosis prophylaxis - heparin 5000 units subcutaneously twice daily. 4. Glaucoma - resume home eye drops. 5. Cardiology - place home amlodipine/benazepril on hold at this time given acute renal dysfunction. 6. Fluids, electrolytes, nutrition. Dietary trial, lactated Ringer's 100 mL/h x1 L, follow morning labs. 7. GI - abdominal ultrasound reviewed from today, 12/02/2018, showing no intrahepatic or extrahepatic biliary dilatation, common bile duct measured 4 mm, cholelithiasis present, no pericalyceal dilatation. Acalculous cholecystitis remains a possibility, in the community-acquired setting, coverage with Zosyn would be adequate. Placed on empiric antibiotics 8. Given her advanced age and comorbidities, she is high risk. She is full code , as reflected in her chart. Job ID: [id number] MTDD
[2018-12-03] MEDS: Lactated Ringer's 1,000 ML IV SCH ×3 (05:06→20:53)
[2018-12-03 06:21] LABS: Lactic Acid 1.6 mmol/L (0.5-2.2)
[2018-12-03 06:29] LABS: Anion Gap 14 mmol/L (10-20); BUN (Urea Nitrogen) 47 mg/dL (9.8-20.1); Calc. Creatinine Clearance 13 mL/min (70-130); Calcium 8.1 mg/dL (7.8-10.44); Carbon Dioxide 17 mmol/L (23-31); Chloride 111 mmol/L (98-107); Estimated GFR-MDRD 17; Glucose 68 mg/dL (83-110); Potassium 3.5 mmol/L (3.5-5.1); Sodium 138 mmol/L (136-145)
[2018-12-03 08:03] LABS: Band 18 % (5-11); Burr Cells MARKED = >16 cells (100X) (0-1/hpf); Hemoglobin 10.1 g/dL (12.0-16.0); Lymphocytes 4 % (21-51); MDiff Complete? YES; Mean Corpuscular HGB CONC 32.5 g/dL (32.0-36.0); Mean Corpuscular Hemoglobin 26.3 pg (27.0-31.0); Mean Corpuscular Volume 80.8 fL (78.0-98.0); Mean Platelet Volume 9.9 fL (7.4-10.4); Monocytes 1 % (0-10); Neutrophil 77 % (42-75); Platelet Count 96 thou/uL (130-400); Platelet Morphology Comment Appears Decreased; RBC Distribution Width 13.4 % (11.5-14.5); Red Blood Cell (RBC) Count 3.84 mill/uL (4.20-5.40); Reflex for Review?? NO
[2018-12-03] MEDS: Timolol 0.5% Ophth Soln 5 ml Bottle EA EYE SCH ×2 (09:15→20:54)
[2018-12-03] MEDS: hydrALAZINE 25 MG TAB PO SCH ×2 (09:17→20:54)
--- NOTE | 2018-12-03 16:36 | PDOC.HOSPP ---
- Subjective Encounter Date: 12/03/18 Encounter Time: 16:30 Subjective: No nausea, eating better. No abdominal pain. One loose stool this morning. [place] some soreness in her chest yesterday, now feels better. Wears dentures, states her gums are sore. Breathing well, walked this morning. No fever overnight. - Objective Vital Signs & Weight: Vital Signs (12 hours) Temp Pulse Resp BP BP Pulse Ox 12/03/18 16:00 98.7 F 81 20 123/66 93 L 12/03/18 11:43 98.7 F 94 18 127/66 92 L 12/03/18 09:41 92 L 12/03/18 09:17 94 110/58 L 12/03/18 09:15 94 110/58 L 12/03/18 08:00 97.9 F 94 20 110/58 L 92 L Weight Admit Weight 139 lb 3.198 oz Weight 139 lb 3.198 oz Result Diagrams: 12/03/18 05:33 12/03/18 05:32 Hospitalist ROS - Medication Medications: Active Medications Generic Name Dose Route Start Last Admin Trade Name Alverto PRN Reason Stop Dose Admin Hydralazine HCl 25 mg 12/02/18 21:00 12/03/18 09:17 Apresoline PO Not Given BID EM Lactated Ringer's 1,000 mls @ 100 mls/hr 12/02/18 19:00 12/03/18 15:31 Lactated Ringer's IV Not Given .Q10H EM Latanoprost 1 drop 12/02/18 21:00 12/02/18 19:54 Xalatan 0.005% Ophth Soln EA EYE 1 drop HS EM Administration Timolol Maleate 1 drop 12/02/18 21:00 12/03/18 09:15 Timoptic 0.5% Ophth Soln EA EYE 1 drop BID EM Administration - Exam General Appearance: NAD Eye: anicteric sclera ENT: moist mucosa ENT - other findings: dentures in place Neck: supple, no JVD Heart: RRR Respiratory: CTAB, no wheezes Gastrointestinal: soft, non-tender, non-distended Extremities: no cyanosis, no edema Skin: no rashes Neurological: no new deficit Psychiatric: A&O x 3 Hosp A/P (1) E coli bacteremia Code(s): R78.81 - BACTEREMIA Status: Acute (2) Sepsis Code(s): A41.9 - SEPSIS, UNSPECIFIED ORGANISM Status: Acute (3) Acute renal failure Status: Acute (4) HTN (hypertension) Code(s): I10 - ESSENTIAL (PRIMARY) HYPERTENSION Status: Acute (5) Glaucoma Code(s): H40.9 - UNSPECIFIED GLAUCOMA Status: Acute - Plan 1. ID - Bacteremia present 2/2 presumptive E coli, continue Zosyn, renally dosed. Unsure of source - gallbladder? urine? Urine and blood cultures pending. If organism same, likely urine. Check renal sono. Hesitate to do additional abdominal imaging at this point due to ARF and consideration for IV contrast via CT. Check AM CBC. 2. Renal - ARF, discussed with Dr. Brito, appreciate his care, check AML. 3. Glaucoma - continue home eye drops 4. DVT proph - heparin 5. FEN - trial IVFs, diet 6. Mobilize/OOB/walking program.
--- NOTE | 2018-12-03 17:51 | CON ---
DATE OF CONSULTATION: 12/03/2018 CONSULTING PHYSICIAN: Anna Bullard MD REASON FOR CONSULT: Acute kidney injury. REASON FOR ADMISSION: Abdominal pain. HISTORY OF PRESENT ILLNESS: An 83-year-old female with history of hypertension, bladder cancer, small bowel obstruction, nephrolithiasis, and glaucoma, came to the hospital with the abdominal pain and she is being evaluated. She was found to have elevated creatinine. Creatinine yesterday was 4.38, this morning 3.1. Her last creatinine was 0.9 on 10/06/2018. Nephrology is consulted for acute kidney injury. The patient was also found to have leukocytosis and possible abdominal source for pain and was started on antibiotics. She was also had lactic acidosis. The patient is feeling much better and actually wants to go home. No nausea or vomiting reported. The patient has been not eating very well and has been having diarrhea before admission. PAST MEDICAL HISTORY: Positive for hypertension, bladder cancer, small bowel obstruction, nephrolithiasis, glaucoma, and DONTE. PAST SURGICAL HISTORY: Hysterectomy, bladder surgery, and urostomy. HOME MEDICATIONS: 1. Amlodipine. 2. Benazepril. 3. Timolol. 4. Latanoprost. ALLERGIES: NO KNOWN DRUG ALLERGIES. SOCIAL HISTORY: No smoking, alcohol, or illicit drug abuse. She quit smoking. FAMILY HISTORY: Positive for breast cancer. REVIEW OF SYSTEMS: CONSTITUTIONAL: Negative for weight loss or gain, ability to conduct usual activities. SKIN: Negative for rash, itching. EYES: Negative for double vision, pain. ENT/MOUTH: Negative for nose bleeding, neck stiffness, pain, tenderness. CARDIOVASCULAR: Negative for palpitations, dyspnea on exertion, orthopnea. RESPIRATORY: Negative for shortness of breath, wheezing, cough, hemoptysis, fever or night sweats. GASTROINTESTINAL: Negative for poor appetite, abdominal pain, heartburn, nausea, vomiting, constipation, or diarrhea. GENITOURINARY: Negative for urgency, frequency, dysuria, nocturia. MUSCULOSKELETAL: Negative for pain, swelling. NEUROLOGIC/PSYCHIATRIC: Negative for anxiety, depression. ALLERGY/IMMUNOLOGIC: Negative for skin rash, bleeding tendency. PHYSICAL EXAMINATION: GENERAL: This is a thin-built female, in no apparent distress. VITAL SIGNS: Temperature 97.9, pulse 94, respiratory rate 20, blood pressure 110/58. HEENT: Atraumatic and normocephalic. Oral mucosa moist. NECK: Supple. CV: S1 and S2 heard. Rate and rhythm regular. RESPIRATORY: Clear to auscultation. GASTROINTESTINAL: Abdomen is soft. MUSCULOSKELETAL: No tenderness. No edema. DERMATOLOGIC: No skin rash. NEUROLOGIC: Alert and awake. PSYCHIATRIC: Normal mood and affect. LABORATORY DATA: WBC 26.0, hemoglobin is 10.1, and platelets 96. Potassium 3.4. Lactic acid is 1.6 from 3.7 yesterday, bicarb is 17, BUN is 47, and creatinine is 3.1. ASSESSMENT AND PLAN: 1. Acute kidney injury, getting better. Continue IV fluids. 2. Edema, controlled. 3. Hypertension, stable. 4. Leukocytosis with lactic acidosis. Continue antibiotics. 5. Chronic anemia. 6. Lactic acidosis, getting better. Continue IV fluids. 7. Monitor white count and rule out any infection. Continue antibiotics and supportive care. Continue IV fluids as tolerated to be cautious with the lower given the risk of hyperkalemia. Continue close monitoring of labs. Avoid nephrotoxins. Renally dose the medications and we will continue to follow. Job ID: [id number]
[2018-12-03] MEDS: Heparin 5,000 UNITS/ML VIAL SC SCH (20:45)
[2018-12-03] MEDS: Latanoprost 0.005% Ophth Soln 2.5 ml Bottle EA EYE SCH (20:53)
[2018-12-03] MEDS: Piperacillin/Tazobactam 2.25 GM in Sodium Chloride 0.9% 100 ML IVPB SCH (20:54)
[2018-12-04] MEDS: Piperacillin/Tazobactam 2.25 GM in Sodium Chloride 0.9% 100 ML IVPB SCH ×3 (04:24→20:30)
[2018-12-04 07:40] LABS: White Blood Cell (WBC) Count 21.2 thou/uL (4.8-10.8)
[2018-12-04 07:49] LABS: Mean Corpuscular HGB CONC 32.6 g/dL (32.0-36.0); Mean Corpuscular Hemoglobin 25.8 pg (27.0-31.0); Mean Corpuscular Volume 79.2 fL (78.0-98.0); Mean Platelet Volume 10.6 fL (7.4-10.4); Platelet Count 86 thou/uL (130-400); RBC Distribution Width 13.5 % (11.5-14.5); Red Blood Cell (RBC) Count 4.27 mill/uL (4.20-5.40)
[2018-12-04 07:56] LABS: Anion Gap 12 mmol/L (10-20); BUN (Urea Nitrogen) 35 mg/dL (9.8-20.1); Calc. Creatinine Clearance 19 mL/min (70-130); Calcium 8.6 mg/dL (7.8-10.44); Carbon Dioxide 19 mmol/L (23-31); Chloride 112 mmol/L (98-107); Estimated GFR-MDRD 26; Glucose 88 mg/dL (83-110); Potassium 3.2 mmol/L (3.5-5.1); Sodium 140 mmol/L (136-145)
--- NOTE | 2018-12-04 08:22 | ULT ---
ULTRASOUND RETROPERITONEUM COMPLETE: (RENAL) DATE: 12/04/2018 HISTORY: 83-year-old female with acute renal failure, acute kidney injury and bacteremia. FINDINGS: Right kidney: 11.5 x 3.5 x 5 cm. Left kidney: 10 x 5.5 x 5.5 cm. No hydronephrosis in the right kidney. Mild to moderate dilation of left renal collecting system. Urinary bladder: Surgically absent. IMPRESSION: Left hydronephrosis is evidence for left obstructive uropathy.
[2018-12-04] MEDS ORDERED: Potassium Chloride 20 MEQ TAB PO SCH (08:30)
[2018-12-04] MEDS: Sodium Chloride 0.9% 1,000 ML IV SCH ×2 (08:55→23:21)
[2018-12-04] MEDS: Heparin 5,000 UNITS/ML VIAL SC SCH ×3 (08:56→20:37)
[2018-12-04] MEDS: hydrALAZINE 25 MG TAB PO SCH ×2 (08:58→20:36)
[2018-12-04 09:04] LABS: Band 9 % (5-11); Burr Cells MODERATE= 6-15 cells (100X) (0-1/hpf); Lymphocytes 3 % (21-51); MDiff Complete? YES; Microcytosis SLIGHT = 6-15 cells (100X) (0-5/hpf); Monocytes 6 % (0-10); Neutrophil 82 % (42-75); Platelet Morphology Comment Appears Decreased; Polychromasia SLIGHT = 2-3 cells (100X) (0-2/hpf); Schistocytes SLIGHT = 2-5 cells (100X) (0-1/hpf)
[2018-12-04] MEDS: Timolol 0.5% Ophth Soln 5 ml Bottle EA EYE SCH ×2 (09:08→20:36)
--- NOTE | 2018-12-04 09:37 | PRG ---
DATE OF SERVICE: 12/04/2018 SUBJECTIVE: Patient was seen and examined at bedside and overnight events noted. Patient denies any shortness of breath or chest pain or palpitation. No history of nausea or vomiting or diarrhea or fever or chills or cramps. OBJECTIVE: GENERAL: This is a well-built female, in no apparent distress. VITAL SIGNS: Temperature 98.5. Heart rate 82. Respiratory rate 19. Blood pressure 146/72. HEENT: Atraumatic, normocephalic. Oral mucosa is moist NECK: Supple. CARDIOVASCULAR: S1, S2 heard. Rate and rhythm regular. RESPIRATORY: Clear to auscultation. GASTROINTESTINAL: Abdomen is soft. MUSCULOSKELETAL: No tenderness. No edema. DERMATOLOGIC: No skin rash. NEUROLOGIC: Alert and awake and oriented X3. No focal neurologic deficits. Moving all the extremities. PSYCHIATRIC: Mood and affect normal. LABORATORY DATA: Potassium is 3.2, BUN is 35, and creatinine is 2.1. ASSESSMENT AND PLAN: 1. Acute kidney injury. Creatinine is better. 2. Left-sided hydronephrosis. We will check with Urology. 3. Hypertension. 4. Chronic anemia. 5. Leukocytosis with lactic acidosis. 6. Edema, controlled. 7. Hypokalemia. We will replace. Consult Urology. Replace potassium. We will change IV fluids to NS and we will monitor. Job ID: [id number]
[2018-12-04 11:46] LABS: Actual Bicarbonate (HCO3a) 14.4 mEq/L (22-28); Base Excess (BEa) -6.9 mEq/L (-2.0 to +3.0); Calcium, Ionized 1.17 mmol/L (1.12-1.30); Carboxyhemoglobin (COHb) 0.7 gm% (0.0-3.0); Hemoglobin (Hb) 11.9 g/dL (12.0-16.0); Potassium - ABG Lab 3.87 mmol/L (3.70-5.30); pH, Arterial 7.49 (7.35-7.45)
[2018-12-04 11:51] LABS: CO2 Tension 19.6 mmHg (35.0-45.0); O2 Tension (PaO2) 55.6 mmHg (> 60.0)
[2018-12-04 11:52] LABS: Puncture Site L.R.
--- NOTE | 2018-12-04 12:18 | CT ---
EXAM: CT Chest WO Con PROVIDED CLINICAL HISTORY: Shortness of breath COMPARISON: CT abdomen and pelvis 06/18/2017 FINDINGS: Vascular calcification including coronary calcium is demonstrated. The heart, pericardium and great v essels are suboptimally evaluated in the absence of IV contrast material but demonstrate an otherwise unremarkable unenhanced CT appearance. There is no evidence for thoracic lymph node enlargement with limitations due to lack of IV contrast. There are mild bilateral pleural effusions with bibasilar subsegmental atelectasis. Emphysematous soren nges are demonstrated. There is an 11 mm predominantly solid nodule at the superior aspect of the left upper lobe. There is no evidence for pneumothorax. The airway appears patent and of normal caliber. The visualized portions of the upper abdomen demonstrate a staghorn left renal calculus that appears similar to the prior study, measuring about 2.5 cm. There is left hydronephrosis and incompletely visualized left hydroureter. IMPRESSION: 1. 11 mm left upper lobe pulmonary nodule, concerning for malignancy. 2. Emphysema. 3. Mild bilateral pleural effusions. 4. Staghorn left renal calculus, stable. Incompletely visualized left hydronephrosis and hydroureter. Consider correlation with CT abdomen and pelvis.
--- NOTE | 2018-12-04 14:39 | PDOC.HOSPP ---
- Subjective Subjective: Seen and examined. In moderate pulmonary distress, breathing in the 30's, short and shallow. Upgraded to IMC, ABG with hypoxia, CT chest ordered and reviewed. Started breathing treatments. Denies pain. Denies palpitations. Feels weak and tired. - Objective Vital Signs & Weight: Vital Signs (12 hours) Temp Pulse Resp BP BP BP Pulse Ox 12/04/18 14:21 83 22 H 96 12/04/18 12:03 98.5 F 93 25 H 156/75 H 92 L 12/04/18 11:34 99.4 F 91 20 165/83 H 93 L 12/04/18 09:14 92 L 12/04/18 09:08 83 150/77 H 12/04/18 09:00 98.5 F 83 20 150/77 H 97 12/04/18 08:58 83 150/77 H Weight Admit Weight 139 lb 3.198 oz Weight 139 lb 3.198 oz I&O: 12/03/18 12/04/18 12/05/18 06:59 06:59 06:59 Intake Total 1220 Output Total 1350 Balance -130 Result Diagrams: 12/04/18 07:10 12/04/18 07:10 Radiology Reviewed by me: Yes (CT chest) Hospitalist ROS - Review of Systems All other systems reviewed; all pertinent +/- noted in HPI/Subj - Medication Medications: Active Medications Generic Name Dose Route Start Last Admin Trade Name Freq PRN Reason Stop Dose Admin Albuterol/Ipratropium 3 ml 12/04/18 15:00 12/04/18 14:21 Duoneb NEB 3 ml [id number] EM Administration Heparin Sodium (Porcine) 5,000 units 12/03/18 21:00 12/04/18 10:42 Heparin SC 5,000 units BID EM Administration Hydralazine HCl 25 mg 12/02/18 21:00 12/04/18 08:58 Apresoline PO 25 mg BID EM Administration Piperacillin Sod/Tazobactam 100 mls @ 200 mls/hr 12/03/18 20:00 12/04/18 11: 27 Sod 2.25 gm/ Sodium Chloride IVPB 100 mls 0400,1200,2000 EM Administration Sodium Chloride 1,000 mls @ 70 mls/hr 12/04/18 08:30 12/04/18 08:55 Normal Saline 0.9% IV 1,000 mls .[id number] EM Administration Latanoprost 1 drop 12/02/18 21:00 12/03/18 20:53 Xalatan 0.005% Ophth Soln EA EYE 1 drop HS EM Administration Timolol Maleate 1 drop 12/02/18 21:00 12/04/18 09:08 Timoptic 0.5% Ophth Soln EA EYE 1 drop BID EM Administration - Exam General Appearance: awake alert, ill appearing Eye: PERRL, anicteric sclera Eye - other findings: EOMI ENT: no oropharyngeal lesions, moist mucosa Neck: supple, symmetric, no lymphadenopathy Heart: no murmur Heart - other findings: S1 and S2 Respiratory: no rales, rhonchi (Few scattered wheezing and rhonchi. Decreased breath sounds lower lung nicole), wheezes Gastrointestinal: soft, non-tender, non-distended, no guarding, no rigidity Extremities: no edema Skin: no lesions, no rashes Neurological: CN's grossly intact, no focal deficits, no new deficit Musculoskeletal: generalized weakness Psychiatric: normal affect, oriented to person, oriented to place Hosp A/P (1) COPD with exacerbation Code(s): J44.1 - CHRONIC OBSTRUCTIVE PULMONARY DISEASE W (ACUTE) EXACERBATION Status: Acute (2) Acute respiratory failure Code(s): J96.00 - ACUTE RESPIRATORY FAILURE, UNSP W HYPOXIA OR HYPERCAPNIA Status: Acute (3) Shortness of breath Code(s): R06.02 - SHORTNESS OF BREATH Status: Acute (4) Hydronephrosis Code(s): N13.30 - UNSPECIFIED HYDRONEPHROSIS Status: Acute (5) Nephrolithiasis Status: Acute (6) E coli bacteremia Code(s): R78.81 - BACTEREMIA Status: Acute (7) HTN (hypertension) Code(s): I10 - ESSENTIAL (PRIMARY) HYPERTENSION Status: Chronic (8) Sepsis Code(s): A41.9 - SEPSIS, UNSPECIFIED ORGANISM Status: Acute (9) Bacteremia Code(s): R78.81 - BACTEREMIA Status: Acute (10) Acute renal failure Status: Acute (11) Sepsis Code(s): A41.9 - SEPSIS, UNSPECIFIED ORGANISM Status: Acute (12) DONTE (acute kidney injury) Code(s): N17.9 - ACUTE KIDNEY FAILURE, UNSPECIFIED Status: Acute (13) Acute pyelonephritis Code(s): N10 - ACUTE PYELONEPHRITIS Status: Acute (14) Neutrophilic leukocytosis Code(s): D72.9 - DISORDER OF WHITE BLOOD CELLS, UNSPECIFIED Status: Acute (15) Other septicemia due to Gram-negative organism Code(s): A41.59 - OTHER GRAM-NEGATIVE SEPSIS Status: Acute (16) Moderate dehydration Code(s): E86.0 - DEHYDRATION Status: Resolved - Plan Plan: Upgrade to [facility] Pulm/ CC consult, recommendations appreciated Nephrology consult, recommendations appreciated Urology consult, recommendations appreciated PULM: -Stat CT chest noted -COPD exacerbation -Stat ABG noted, acute respiratory failure with hypoxia -Start Duo nebs scheduled -IV steroids -On broad spectrum ABX will cover for pulmonary specific organisms -1.1cm lesion will likely need outpatient follow up/ surveillance in 3 months with repeat imaging -tobacco abuse for greater than 40 years - quit smoking in 1991 Urologic: -Hydronephrosis with nephrolithiasis, further plan of care per Urology -Sepsis improving -UTI - On broad spectrum ABX -Bacteremia with e.coli IV fluids for DONTE Continue home meds as able GI and DVT PPX
[2018-12-04] MEDS ORDERED: methylPREDNISolone Sod Succ 40 MG VIAL IVP SCH (14:45)
--- NOTE | 2018-12-04 17:14 | CT ---
CT [facility] Protocol: 12/04/2018 2:51 PM HISTORY: COMPARISON: None. TECHNIQUE: Multiple contiguous axial images were obtained and a CT of the abdomen and pelvis without IV contrast . Coronal reformats were performed. FINDINGS: This examination is limited for the evaluation of solid organs and vascular structures due to the lac k of intravenous contrast. Lower Chest: Small bilateral pleural effusions with adjacent atelectasis Abdomen: Liver: within normal limits. Bile Ducts: Normal caliber. Gallbladder: Small calcified gallstones. Pancreas: within normal limits. Spleen: within normal limits. Adrenals: within normal limits. Kidneys: A large staghorn calculus measuring at least 2.8 cm in size is seen in the upper pole of the left kidney. Pelvis: Reproductive Organs: Status post hysterectomy. Ureters: 7 mm calcification in the mid left ureter with moderate left hydronephrosis and hydroureter. Bladder: within normal limits. Bowel: Normal caliber. An ostomy is seen in the right lower quadrant of the abdomen. Mesenteric Lymph Nodes: No enlarged mesenteric lymph nodes. Peritoneum: No ascites or free air, no fluid collection. Vessels: Atherosclerotic calcifications in the aorta Retroperitoneum: within normal limits. Abdominal Wall: within normal limits. Bones: Degenerative changes in the spine. IMPRESSION: 1. Left mid ureteral calcification with moderate left hydronephrosis 2. Large staghorn calculus in the upper pole of the left kidney 3. Cholelithiasis 4. Bilateral pleural effusions with adjacent atelectasis
[2018-12-04] MEDS: Latanoprost 0.005% Ophth Soln 2.5 ml Bottle EA EYE SCH (20:37)
--- NOTE | 2018-12-04 22:50 | CON ---
DATE OF CONSULTATION: 12/04/2018 CONSULTING PHYSICIAN: Dr. Nam Haji. REASON FOR CONSULTATION: Abnormal ABG. HISTORY OF PRESENT ILLNESS: This was a telephone consult given to me by the nursing staff without direct communication from the attending physician. The patient is an 83-year-old female, who apparently was found to be tachypneic earlier today. It is not clear to me what was going on as patient is nondescript. She was sent for a CT of the chest, but not a CT pulmonary angiogram. That report demonstrated a 1.1 cm left upper lobe nodular density, scattered emphysematous changes and small bilateral effusions. The patient's breathing has since normalized and she has no acute complaints. She says she is in the hospital because she developed the "fever" 3 days ago. She describes this as diarrhea and vomiting. PAST MEDICAL HISTORY: 1. Hypertension. 2. Bladder cancer requiring urostomy. 3. Small bowel obstruction. 4. Nephrolithiasis. 5. Glaucoma. 6. Chronic kidney disease. PAST SURGICAL HISTORY: 1. Hysterectomy. 2. Urostomy. SOCIAL HISTORY: Quit smoking in 1991. Does not consume alcohol. Does not use illicit drugs. FAMILY MEDICAL HISTORY: Remarkable for breast cancer. MEDICATIONS: Prior to admission: 1. Amlodipine/benazepril. 2. Timolol eyedrops. 3. Latanoprost eyedrops. ALLERGIES: NONE. REVIEW OF SYSTEMS: Has had some intermittent fever and chills, some nausea, vomiting. No chest pain, hematemesis, melena, hematochezia, hematuria or dysuria. PHYSICAL EXAMINATION: VITAL SIGNS: Temperature 99.7, pulse 83, respirations 22, O2 saturation 96% on 2 L, and blood pressure 156/75. GENERAL: She is awake and alert, and in no respiratory distress. HEENT: Pupils are reactive to light. Sclerae anicteric. Oropharynx clear. NECK: No adenopathy or JVD. LUNGS: Clear without wheezing or rhonchi. CARDIAC: S1-S2 regular without audible murmur. ABDOMEN: Urostomy site noted. No distention. Bowel sounds normoactive. EXTREMITIES: No clubbing, cyanosis, or edema. LABORATORY DATA: ABG obtained from 11:40 this morning shows a pH of 7.49, pCO2 of 19, PO2 of 55. White blood cell count 21.2, hematocrit 33.8, and platelet count 86. Sodium 140, potassium 3.2, chloride 112, CO2 of 19, BUN 35, creatinine 2.1, and glucose 88. I reviewed the CT scan personally. The 1.1 cm density is noted in the left upper lobe. This is a very faint appearing structure. She has some bronchiectatic changes in the upper lobe posteriorly, there are bilateral small effusions. There may be an infiltrate in the bottom of the right lung. ASSESSMENT: Aside from hypoxemia, at the current time, there is no evidence of respiratory decompensation. Her earlier blood gas looks like she was hyperventilating for some reason. 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 In any event, I do not think there is much going on in terms of the breathing at this time. She probably does have some component of chronic obstructive pulmonary disease that has been undiagnosed over the years. There is some concern of right lower lobe infiltrate. This could be pneumonia or aspiration from previous vomiting earlier in the week. She also has a 1.1 cm left upper lobe nodule that bears watching. RECOMMENDATION: 1. Agree with the empiric antibiotics, steroids, and breathing treatments. 2. Low-flow supplemental oxygen. 3. She will need a repeat CT scan in about 3 months to further characterize the nodule. It is important that she be given discharge instructions by the primary team that has her followup either with me or primary care physician for the lung nodule. Thank you for the referral. Job ID: [id number]
--- NOTE | 2018-12-04 22:51 | CON ---
DATE OF CONSULTATION: 12/04/2018 CONSULTING PHYSICIAN: Dr. Brito. REASON FOR CONSULTATION: Hydronephrosis. HISTORY OF PRESENT ILLNESS: Ms. Lo is an 83-year-old black female with a history of bladder cancer status post cystectomy done around 1995. This was done in [place] by another urologist who she no longer sees. She was admitted to the hospital on 12/02, due to complaints of abdominal pain. She states that the pain was located primarily in the epigastric location with radiation toward her back. She had had subjective fevers and chills, although this had not been confirmed on vital signs. She has been having some loose stools. On laboratory evaluation, it was noted that she had an elevated creatinine up to 4. Nephrology was consulted for assistance. Renal ultrasound was ordered, which demonstrated left-sided [id number] hydronephrosis, which is unclear if this was chronic or acute. Her creatinine has improved on this admission with resuscitative measures and has subsequently decreased from 4 down to 3.18 and subsequently now down to 2.2 today. She states that she is no longer having any pain. She denies any nausea or vomiting. She has not had any hematuria into her pouch. She denies any flank pain. She is stating that she had some shortness of breath, but this has improved. She denies any chest pain. Denies any lower extremity edema. ALLERGIES: NONE. HOME MEDICATIONS: 1. Amlodipine. 2. Timolol drops. 3. Latanoprost drops. 4. Tramadol. PAST MEDICAL HISTORY: 1. Hypertension. 2. Bladder cancer. 3. Small bowel obstruction. 4. History of nephrolithiasis. 5. Glaucoma. 6. History of acute renal failure with recovery. PAST SURGICAL HISTORY: 1. Hysterectomy. 2. Radical cystectomy with ileal conduit in 1995. FAMILY HISTORY: Significant for breast cancer. SOCIAL HISTORY: The patient previously used to smoke, but quit more than 10 years ago. She denies any alcohol use or illicit drug use. REVIEW OF SYSTEMS: A 12-point review of system was reviewed and otherwise negative other than what was commented on in the HPI. PHYSICAL EXAMINATION: VITAL SIGNS: Temperature 99.7, pulse 83, respirations 22, blood pressure 156/75, saturation 96% on 2 L nasal cannula. GENERAL: No apparent distress. Thin, appears stated age. Conversant. HEENT: Normocephalic, atraumatic. Pupils symmetric and round. Trachea midline. Moist mucous membranes. CARDIOVASCULAR: Regular rate and rhythm. Normal S1 and S2. Symmetric pulses. CHEST: No increased work of breathing. Symmetric expansion of the lungs. Clear anteriorly. ABDOMEN: Soft, nontender, and nondistended. Urostomy appears pink and healthy with clear yellow urine in the bag, which is located in the right lower quadrant. Well-healed midline incision without hernia. No organomegaly. No ascites or fluid shift. Positive bowel sounds. : Deferred at this time. EXTREMITIES: No clubbing, cyanosis, or edema. MUSCULOSKELETAL: No joint deformity or joint erythema noted. Full range of motion. SKIN: Warm, dry, poor turgor. No rashes or lesions. NEUROLOGIC: Cranial nerves 2 through 12 appear grossly intact. No focal sensory or motor deficits identified. LYMPH NODES: None enlarged in the supraclavicular, cervical, axillary, or inguinal region. PSYCHIATRIC: Alert and oriented x3. Appropriate mood and affect. LABORATORY EVALUATION: The full set of labs are in the [employer] system, which I have reviewed. Of note, the patient's white count is 21.2 with platelet count of 86, creatinine of 2.17, which is improving. Renal ultrasound again demonstrates left hydronephrosis with likely left obstructive uropathy with absent urinary bladder. No hydronephrosis noted on the right kidney. ASSESSMENT AND PLAN: An 83-year-old black female with history of bladder cancer status post cystectomy with acute kidney injury, which appears to be resolving currently. She has mild to moderate left hydronephrosis, which is unclear whether this is acute or chronic in nature. Given her history of nephrolithiasis and acute kidney injury, I would recommend getting a CT stone protocol to evaluate for any ureterolithiasis or what would appear to be a potential stricture. If there is a question of a stricture or hydroureter down to the anastomosis, a loopogram can be performed in the ileal conduit and if there is reflux of contrast up into the ureter that would confirm patency of the ureter. If creatinine continues to improve, would not necessarily consider any kind of surgical intervention at this time. She is thrombocytopenic, which is unclear as to the etiology. The patient also has a significantly elevated white blood cell count, which is probably from a urinary source, although it cannot be completely correlated with any other potential source at the current time. I will go ahead and obtain a CT stone protocol to evaluate her kidneys completely. Of note, a CT chest was done which demonstrated a partial large staghorn type calculus which was stable in the left kidney. We will get further information if there are any fragments within the ureter on the CT stone protocol and I will continue to follow along and make recommendations. Job ID: [id number]
[2018-12-05] MEDS: Piperacillin/Tazobactam 2.25 GM in Sodium Chloride 0.9% 100 ML IVPB SCH ×3 (04:43→20:14)
[2018-12-05 06:37] LABS: Band 7 % (5-11); Hemoglobin 10.5 g/dL (12.0-16.0); Lymphocytes 11 % (21-51); MDiff Complete? YES; Mean Corpuscular HGB CONC 32.7 g/dL (32.0-36.0); Mean Corpuscular Hemoglobin 25.8 pg (27.0-31.0); Mean Corpuscular Volume 78.9 fL (78.0-98.0); Mean Platelet Volume 7.3 fL (7.4-10.4); Metamyelocyte 2 % (0-0); Monocytes 12 % (0-10); Neutrophil 68 % (42-75); Platelet Count 65 thou/uL (130-400); Platelet Morphology Comment Appears Decreased; RBC Distribution Width 13.7 % (11.5-14.5); Red Blood Cell (RBC) Count 4.06 mill/uL (4.20-5.40); White Blood Cell (WBC) Count 13.6 thou/uL (4.8-10.8)
[2018-12-05 06:38] LABS: Anion Gap 13 mmol/L (10-20); BUN (Urea Nitrogen) 32 mg/dL (9.8-20.1); Calc. Creatinine Clearance 31 mL/min (70-130); Calcium 8.5 mg/dL (7.8-10.44); Carbon Dioxide 17 mmol/L (23-31); Chloride 115 mmol/L (98-107); Estimated GFR-MDRD 45; Glucose 109 mg/dL (83-110); Potassium 3.7 mmol/L (3.5-5.1); Sodium 141 mmol/L (136-145)
[2018-12-05] MEDS: hydrALAZINE 25 MG TAB PO SCH ×2 (09:25→20:13)
[2018-12-05] MEDS: Timolol 0.5% Ophth Soln 5 ml Bottle EA EYE SCH ×2 (09:26→20:13)
[2018-12-05] MEDS: Heparin 5,000 UNITS/ML VIAL SC SCH ×2 (09:26→20:12)
[2018-12-05] MEDS: methylPREDNISolone Sod Succ 40 MG VIAL IVP SCH (09:26)
--- NOTE | 2018-12-05 11:08 | PRG ---
DATE OF SERVICE: 12/05/2018 SUBJECTIVE: She says she feels better today. She had no acute complaints. OBJECTIVE: VITAL SIGNS: Temperature 98.9, pulse 78, blood pressure 123/60, O2 saturation 98%. HEENT: Unremarkable. NECK: No adenopathy or JVD. CHEST: Clear. CARDIAC: S1, S2. Regular. ABDOMEN: Soft. Urostomy bag in place. EXTREMITIES: No clubbing, cyanosis, or edema. LABORATORY DATA: White blood cell count 13.6, hematocrit 32.1, and platelet count 65. Sodium 141, potassium 3.7, chloride 115, CO2 of 17, BUN 32, creatinine 1.3, glucose 109. IMAGING STUDIES: Renal ultrasound demonstrates left hydronephrosis, which is apparently evidence for left obstructive uropathy. ASSESSMENT: 1. Nephrolithiasis. 2. Status post episode of extreme dyspnea and hypoxemia yesterday, which has resolved. 3. Question pneumonia. PLAN: The patient can be transferred back to the medical floor awaiting her urostomy tube. Continue antibiotics. No further Pulmonary recommendations. We are available as needed. Job ID: [id number]
[2018-12-05] MEDS ORDERED: Sodium Chloride 0.9% 1,000 ML IV SCH (12:15)
--- NOTE | 2018-12-05 12:36 | PRG ---
DATE OF SERVICE: 12/05/2018 SUBJECTIVE: Patient was seen and examined at bedside and overnight events noted. Patient denies any shortness of breath or chest pain or palpitation. No history of nausea or vomiting or diarrhea or fever or chills or cramps. OBJECTIVE: GENERAL: This is a well-built female, in no apparent distress. VITAL SIGNS: Temperature 98.9. Heart rate 87. Respiratory rate 16. Blood pressure 123/60. HEENT: Atraumatic, normocephalic. Oral mucosa is moist. NECK: Supple. CARDIOVASCULAR: S1, S2 heard. Rate and rhythm regular. RESPIRATORY: Clear to auscultation. GASTROINTESTINAL: Abdomen is soft. MUSCULOSKELETAL: No tenderness. No edema. DERMATOLOGIC: No skin rash. NEUROLOGIC: Alert and awake and oriented x3. No focal neurologic deficits. Moving all the extremities. PSYCHIATRIC: Mood and affect normal. LABORATORY DATA: Potassium 3.7, BUN is 32, and creatinine is 1.35. ASSESSMENT AND PLAN: 1. Acute kidney injury on chronic kidney disease, stage 3. 2. Obstructive uropathy. Follow up with Urology. 3. Nephrolithiasis. 4. Hypertension. 5. Leukocytosis. 6. Edema. 7. Hypokalemia. We will continue on IV fluids. Follow with Urology. Job ID: [id number]
--- NOTE | 2018-12-05 14:06 | PDOC.HOSPP ---
- Subjective Subjective: Seen and examined. Clinically significantly improved. breathing well on low flow NC. No longer in panic attack, respirations no longer short/ rapid/ shallow. Discused all results of CT chest - questions asked - all answered in detail. Explicitly informed her she needs another CT scan in 3 months by her PCP - or return to acute care hospital for re evaluation. - Objective Vital Signs & Weight: Vital Signs (12 hours) Temp Pulse Resp Pulse Ox 12/05/18 10:52 87 16 95 12/05/18 09:26 74 12/05/18 09:25 74 12/05/18 08:13 96 12/05/18 08:11 74 18 96 12/05/18 07:16 96 12/05/18 07:09 98.9 F 12/05/18 03:47 98.3 F Weight Admit Weight 139 lb 3.198 oz Weight 139 lb 3.198 oz Most Recent Monitor Data Heart Rate from ECG 74 NIBP 123/60 NIBP BP-Mean 81 Respiration from ECG 16 SpO2 99 I&O: 12/04/18 12/05/18 12/06/18 06:59 06:59 06:59 Intake Total 1220 1150 Output Total 1350 850 Balance -130 300 Result Diagrams: 12/05/18 05:55 12/05/18 05:55 Radiology Reviewed by me: Yes (CT chest) Hospitalist ROS - Review of Systems All other systems reviewed; all pertinent +/- noted in HPI/Subj - Medication Medications: Active Medications Generic Name Dose Route Start Last Admin Trade Name Freq PRN Reason Stop Dose Admin Albuterol/Ipratropium 3 ml 12/04/18 15:00 12/05/18 10:52 Duoneb NEB 3 ml [id number] EM Administration Heparin Sodium (Porcine) 5,000 units 12/03/18 21:00 12/05/18 09:26 Heparin SC 5,000 units BID EM Administration Hydralazine HCl 25 mg 12/02/18 21:00 12/05/18 09:25 Apresoline PO 25 mg BID EM Administration Piperacillin Sod/Tazobactam 100 mls @ 200 mls/hr 12/03/18 20:00 12/05/18 12: 58 Sod 2.25 gm/ Sodium Chloride IVPB 100 mls 0400,1200,2000 EM Administration Latanoprost 1 drop 12/02/18 21:00 12/04/18 20:37 Xalatan 0.005% Ophth Soln EA EYE 1 drop HS EM Administration Methylprednisolone Sodium Succinate 40 mg 12/05/18 09:00 12/05/18 09:26 Solu-Medrol IVP 40 mg DAILY EM Administration Timolol Maleate 1 drop 12/02/18 21:00 12/05/18 09:26 Timoptic 0.5% Ophth Soln EA EYE 1 drop BID EM Administration - Exam General Appearance: NAD, awake alert Eye: PERRL, anicteric sclera Eye - other findings: EOMI ENT: no oropharyngeal lesions, moist mucosa Neck: supple, no lymphadenopathy Heart: no murmur, no gallops, no rubs Heart - other findings: S1 and S2 present Respiratory: CTAB, no rales, no ronchi, normal chest expansion, wheezes ( Resolving) Gastrointestinal: soft, non-tender, no palpable masses, no guarding, no rigidity Extremities: no edema Skin: no lesions, no rashes Neurological: CN's grossly intact, no focal deficits Musculoskeletal: generalized weakness Psychiatric: normal affect, A&O x 3 Hosp A/P (1) COPD with exacerbation Code(s): J44.1 - CHRONIC OBSTRUCTIVE PULMONARY DISEASE W (ACUTE) EXACERBATION Status: Acute (2) Acute respiratory failure Code(s): J96.00 - ACUTE RESPIRATORY FAILURE, UNSP W HYPOXIA OR HYPERCAPNIA Status: Acute (3) Shortness of breath Code(s): R06.02 - SHORTNESS OF BREATH Status: Acute (4) Hydronephrosis Code(s): N13.30 - UNSPECIFIED HYDRONEPHROSIS Status: Acute (5) Nephrolithiasis Status: Acute (6) E coli bacteremia Code(s): R78.81 - BACTEREMIA Status: Acute (7) HTN (hypertension) Code(s): I10 - ESSENTIAL (PRIMARY) HYPERTENSION Status: Chronic (8) Sepsis Code(s): A41.9 - SEPSIS, UNSPECIFIED ORGANISM Status: Acute (9) Bacteremia Code(s): R78.81 - BACTEREMIA Status: Acute (10) Acute renal failure Status: Acute (11) Sepsis Code(s): A41.9 - SEPSIS, UNSPECIFIED ORGANISM Status: Acute (12) DONTE (acute kidney injury) Code(s): N17.9 - ACUTE KIDNEY FAILURE, UNSPECIFIED Status: Acute (13) Acute pyelonephritis Code(s): N10 - ACUTE PYELONEPHRITIS Status: Acute (14) Neutrophilic leukocytosis Code(s): D72.9 - DISORDER OF WHITE BLOOD CELLS, UNSPECIFIED Status: Acute (15) Other septicemia due to Gram-negative organism Code(s): A41.59 - OTHER GRAM-NEGATIVE SEPSIS Status: Acute (16) Moderate dehydration Code(s): E86.0 - DEHYDRATION Status: Resolved - Plan Plan: [facility] Pulm/ CC consult, recommendations appreciated Nephrology consult, recommendations appreciated Urology consult, recommendations appreciated PULM: -Breathing well on low flow NC, will attempt to wean as able - if unable to wean would require home O2 -IV steroids -Duo nebs scheduled -On broad spectrum ABX will cover for pulmonary specific organisms -CT chest noted -COPD exacerbation -ABG noted, acute respiratory failure with hypoxia -1.1cm lesion will need outpatient follow up/ surveillance in 3 months with repeat imaging -tobacco abuse for greater than 40 years - quit smoking in 1991 Urologic: -CT Abd - stone protocol -With normalizing renal function, will likely not require any acute surgical intervention -Hydronephrosis with nephrolithiasis, further plan of care per Urology -Sepsis improving -UTI - On broad spectrum ABX -Bacteremia with e.coli IV fluids for DONTE Continue home meds as able GI and DVT PPX
--- NOTE | 2018-12-05 15:07 | PRG ---
DATE OF SERVICE: 12/05/2018 SUBJECTIVE: The patient states she is feeling much better. She has significant improvement in shortness of breath. She is not having any abdominal pain or flank pain. She has had no blood in her urostomy. OBJECTIVE: VITAL SIGNS: Temperature 98.9, pulse 87, respirations 16, blood pressure 123/60, and saturations 95% on 2 L nasal cannula. GENERAL: No apparent distress. Communicative and alert. CARDIOVASCULAR: Regular rate and rhythm. Normal S1, S2. CHEST: Bibasilar crackles. Otherwise, no increased work of breathing. ABDOMEN: Soft, nontender, nondistended. Positive bowel sounds. : Urostomy in place with clear yellow urine. EXTREMITIES: Thin. No clubbing, cyanosis, or edema. LABORATORY DATA: On laboratory evaluation, a full set of labs are in the [employer] system, which I have reviewed. White count continues to decrease and is now 13,600 with hemoglobin of 10.5. Creatinine is further reduced down to 1.35. CT done yesterday without contrast demonstrates a large branched calculus in the upper pole of the left kidney with moderate left hydronephrosis secondary to an approximately 7-mm calcification in the mid left ureter. There are cholelithiasis and bilateral pleural effusions with atelectasis. ASSESSMENT AND PLAN: An 83-year-old black female with bilateral pleural effusions and abdominal pain likely which had occurred secondary to a ureteral stone, which is passing on the left side. She did appear to have a urinary tract infection or possibly pneumonia with significantly elevated white blood cell count, which has improved dramatically with antibiotics. Her acute kidney injury has also responded quite well to resuscitative efforts and is now almost back to baseline. That said, she continues to have hydronephrosis and is at risk for either repeat infection, sepsis, or worsening kidney function or kidney deterioration. I would recommend a nephrostomy tube at this time on the left side for potential consideration of future PCNL along with antegrade ureteroscopy and removal of the ureteral stone which was impacted. A retrograde approach would be extremely difficult if not almost impossible secondary to her ileal conduit and lack of bladder. Given her pleural effusion and recent sickness, I would not recommend any kind of surgical intervention for the stones at this time, simply drainage of the left kidney with a percutaneous nephrostomy tube. I have discussed this with the patient including risks, which include, but are not limited to bleeding, infection, damage to the kidney or ureter or renal pelvis, inability to get a nephrostomy tube in and need for further procedures. She understands these risks and states she is willing to proceed forward. We will let things cool down for approximately 2 to 4 weeks after nephrostomy tube drainage and then plan to bring her back for antegrade ureteroscopy and PCNL at a later date. For now, we will continue to follow along. I have already spoken with Radiology to schedule her nephrostomy tube placement, which I asked to be done as soon as possible in timely fashion, although there is no current emergency. Job ID: [id number]
[2018-12-05] MEDS: Latanoprost 0.005% Ophth Soln 2.5 ml Bottle EA EYE SCH (20:13)
[2018-12-06] MEDS: Piperacillin/Tazobactam 2.25 GM in Sodium Chloride 0.9% 100 ML IVPB SCH ×3 (05:06→20:29)
[2018-12-06] MEDS: methylPREDNISolone Sod Succ 40 MG VIAL IVP SCH (08:38)
[2018-12-06] MEDS: Heparin 5,000 UNITS/ML VIAL SC SCH ×2 (08:38→20:29)
[2018-12-06] MEDS: hydrALAZINE 25 MG TAB PO SCH ×2 (08:38→20:27)
[2018-12-06] MEDS: Timolol 0.5% Ophth Soln 5 ml Bottle EA EYE SCH ×2 (08:39→20:29)
--- NOTE | 2018-12-06 10:56 | PDOC.HOSPP ---
- Subjective Subjective: Seen and examined. Breathing well on room air, no longer with resp distress, wheezing, or rhonchi. Clinically improving in all aspects. NPO for nephrostomy tube, patient hungry, anxious, upset that she wants to eat. - Objective Vital Signs & Weight: Vital Signs (12 hours) Temp Pulse Resp BP BP Pulse Ox 12/06/18 10:32 70 14 12/06/18 08:39 67 12/06/18 08:38 67 163/68 H 12/06/18 08:03 98.0 F 67 16 163/68 H 95 12/06/18 06:48 70 12 12/06/18 04:00 98.2 F 68 18 163/79 H 96 12/06/18 00:09 97.8 F 74 18 167/78 H 96 Weight Admit Weight 139 lb 3.198 oz Weight 139 lb 3.198 oz Most Recent Monitor Data Heart Rate from ECG 74 NIBP 123/60 NIBP BP-Mean 81 Respiration from ECG 16 SpO2 99 I&O: 12/05/18 12/06/18 12/07/18 06:59 06:59 06:59 Intake Total 1150 550 Output Total 850 Balance 300 550 Result Diagrams: 12/05/18 05:55 12/05/18 05:55 Radiology Reviewed by me: Yes (CT chest) Hospitalist ROS - Medication Medications: Active Medications Generic Name Dose Route Start Last Admin Trade Name Freq PRN Reason Stop Dose Admin Albuterol/Ipratropium 3 ml 12/04/18 15:00 12/06/18 10:32 Duoneb NEB 3 ml [id number] EM Administration Heparin Sodium (Porcine) 5,000 units 12/03/18 21:00 12/06/18 08:38 Heparin SC 5,000 units BID EM Administration Hydralazine HCl 25 mg 12/02/18 21:00 12/06/18 08:38 Apresoline PO 25 mg BID EM Administration Piperacillin Sod/Tazobactam 100 mls @ 200 mls/hr 12/03/18 20:00 12/06/18 05: 06 Sod 2.25 gm/ Sodium Chloride IVPB 100 mls 0400,1200,2000 EM Administration Latanoprost 1 drop 12/02/18 21:00 12/05/18 20:13 Xalatan 0.005% Ophth Soln EA EYE 1 drop HS EM Administration Methylprednisolone Sodium Succinate 40 mg 12/05/18 09:00 12/06/18 08:38 Solu-Medrol IVP 40 mg DAILY EM Administration Timolol Maleate 1 drop 12/02/18 21:00 12/06/18 08:39 Timoptic 0.5% Ophth Soln EA EYE 1 drop BID EM Administration Hosp A/P (1) COPD with exacerbation Code(s): J44.1 - CHRONIC OBSTRUCTIVE PULMONARY DISEASE W (ACUTE) EXACERBATION Status: Acute (2) Acute respiratory failure Code(s): J96.00 - ACUTE RESPIRATORY FAILURE, UNSP W HYPOXIA OR HYPERCAPNIA Status: Acute (3) Shortness of breath Code(s): R06.02 - SHORTNESS OF BREATH Status: Acute (4) Hydronephrosis Code(s): N13.30 - UNSPECIFIED HYDRONEPHROSIS Status: Acute (5) Nephrolithiasis Status: Acute (6) E coli bacteremia Code(s): R78.81 - BACTEREMIA Status: Acute (7) HTN (hypertension) Code(s): I10 - ESSENTIAL (PRIMARY) HYPERTENSION Status: Chronic (8) Sepsis Code(s): A41.9 - SEPSIS, UNSPECIFIED ORGANISM Status: Acute (9) Bacteremia Code(s): R78.81 - BACTEREMIA Status: Acute (10) Acute renal failure Status: Acute (11) Sepsis Code(s): A41.9 - SEPSIS, UNSPECIFIED ORGANISM Status: Acute (12) DONTE (acute kidney injury) Code(s): N17.9 - ACUTE KIDNEY FAILURE, UNSPECIFIED Status: Acute (13) Acute pyelonephritis Code(s): N10 - ACUTE PYELONEPHRITIS Status: Acute (14) Neutrophilic leukocytosis Code(s): D72.9 - DISORDER OF WHITE BLOOD CELLS, UNSPECIFIED Status: Acute (15) Other septicemia due to Gram-negative organism Code(s): A41.59 - OTHER GRAM-NEGATIVE SEPSIS Status: Acute (16) Moderate dehydration Code(s): E86.0 - DEHYDRATION Status: Resolved - Plan Plan: C Pulm/ CC consult, recommendations appreciated Nephrology consult, recommendations appreciated Urology consult, recommendations appreciated PULM: -Breathing well on low flow NC, will attempt to wean as able - if unable to wean would require home O2 -IV steroids -Duo nebs scheduled -On broad spectrum ABX will cover for pulmonary specific organisms -CT chest noted -COPD exacerbation -ABG noted, acute respiratory failure with hypoxia -1.1cm lesion will need outpatient follow up/ surveillance in 3 months with repeat imaging -tobacco abuse for greater than 40 years - quit smoking in 1991 Urologic: -CT Abd - stone protocol -With normalizing renal function, will likely not require any acute surgical intervention -Hydronephrosis with nephrolithiasis, further plan of care per Urology -Sepsis improving -UTI - On broad spectrum ABX -Bacteremia with e.coli IV fluids for DONTE Continue home meds as able GI and DVT PPX
[2018-12-06 11:26] LABS: Hemoglobin 12.5 g/dL (12.0-16.0); Mean Corpuscular HGB CONC 32.1 g/dL (32.0-36.0); Mean Corpuscular Hemoglobin 25.6 pg (27.0-31.0); Mean Corpuscular Volume 79.7 fL (78.0-98.0); RBC Distribution Width 13.9 % (11.5-14.5)
[2018-12-06 11:34] LABS: Prothrombin Time 13.1 SEC (12.0-14.7)
[2018-12-06 11:39] LABS: Anion Gap 13 mmol/L (10-20); BUN (Urea Nitrogen) 30 mg/dL (9.8-20.1); Calc. Creatinine Clearance 34 mL/min (70-130); Calcium 9.3 mg/dL (7.8-10.44); Carbon Dioxide 19 mmol/L (23-31); Chloride 111 mmol/L (98-107); Estimated GFR-MDRD 51; Glucose 79 mg/dL (83-110); Potassium 3.7 mmol/L (3.5-5.1); Sodium 139 mmol/L (136-145)
[2018-12-06 12:06] LABS: Burr Cells SLIGHT = 2-5 cells (100X) (0-1/hpf); Lymphocytes 4 % (21-51); MDiff Complete? YES; Mean Platelet Volume 11.2 fL (7.4-10.4); Monocytes 15 % (0-10); Neutrophil 80 % (42-75); Platelet Count 98 thou/uL (130-400); Platelet Morphology Comment Appears Decreased; Reactive Lymphocytes 1 % (0-10); White Blood Cell (WBC) Count 21.6 thou/uL (4.8-10.8)
--- NOTE | 2018-12-06 12:11 | PRG ---
DATE OF SERVICE: 12/06/2018 SUBJECTIVE: The patient states she is feeling fine. She is not having any pain. No nausea, vomiting, or fevers. OBJECTIVE: VITAL SIGNS: Temperature 98, pulse 70, blood pressure 162/68, respirations 14, saturation 95% on room air. GENERAL: No apparent distress. Communicative and alert. CARDIOVASCULAR: Regular rate and rhythm. ABDOMEN: Soft, nontender, and nondistended. : Urostomy in place with clear yellow urine. EXTREMITIES: No clubbing, cyanosis, or edema. LABORATORY DATA: On laboratory evaluation, a full set of labs are in the [facility] system, which I have reviewed. Of note, the patient's white count is 12.5 with a creatinine of 1.21, which is further improved. ASSESSMENT AND PLAN: An 83-year-old black female with cystectomy and ileal conduit with resolved acute kidney injury with persistent ureteral stone in the left ureter and a large branched calculus in the upper pole of the left kidney. She has improved significantly with antibiotics and IV fluids, and is nearly completely resuscitated. The concern is if she has her antibiotics stopped, she is at very high risk of developing repeat infection, pain, and being readmitted to the hospital. To avoid this problem, I still recommend a nephrostomy tube placement, which should keep the left kidney drained and avoid long-term problems on her left kidney. Once she has had her lungs cleared by Pulmonology and has recovered some from the hospitalization, we will plan a left-sided PCNL via the nephrostomy tube with removal of the branched calculus in the upper pole as well as an antegrade ureteroscopy and removal of the remaining stone in the ureter. I discussed this all with the patient and she states that she is amenable to the plan and agrees to proceed forward. I have already spoken with Radiology and they stated they would plan to do the nephrostomy tube placement tomorrow since it is no longer emergent, which I think is fine. The patient can eat today and should be n.p.o. after midnight for tomorrow. Job ID: [id number]
--- NOTE | 2018-12-06 15:24 | PRG ---
DATE OF SERVICE: 12/06/2018 SUBJECTIVE: Patient was seen and examined at bedside and overnight events noted. Patient denies any shortness of breath or chest pain or palpitation. No history of nausea or vomiting or diarrhea or fever or chills or cramps. OBJECTIVE: GENERAL: This is a well-built female, in no apparent distress. VITAL SIGNS: Temperature 98.3. Heart rate 67. Respiratory rate 16. Blood pressure 163/68. HEENT: Atraumatic, normocephalic. Oral mucosa is moist NECK: Supple. CARDIOVASCULAR: S1, S2 heard. Rate and rhythm regular. RESPIRATORY: Clear to auscultation. GASTROINTESTINAL: Abdomen is soft. MUSCULOSKELETAL: No tenderness. No edema. DERMATOLOGIC: No skin rash. NEUROLOGIC: Alert and awake and oriented X3. No focal neurologic deficits. Moving all the extremities. PSYCHIATRIC: Mood and affect normal. LABORATORY DATA: Potassium 3.7, BUN is 30, creatinine is 1.2. ASSESSMENT AND PLAN: 1. Acute kidney injury on chronic kidney stage 3, stable. 2. Obstructive uropathy. Follow Urology. Plan to have nephrostomy tube placement. 3. History of nephrolithiasis. 4. Hypertension. 5. Edema. 6. Hypokalemia, replace. 7. Stable labs. Job ID: [id number]
[2018-12-06] MEDS: Latanoprost 0.005% Ophth Soln 2.5 ml Bottle EA EYE SCH (20:30)
[2018-12-07] MEDS: Piperacillin/Tazobactam 2.25 GM in Sodium Chloride 0.9% 100 ML IVPB SCH ×3 (04:33→20:45)
[2018-12-07 07:19] LABS: Anion Gap 14 mmol/L (10-20); BUN (Urea Nitrogen) 30 mg/dL (9.8-20.1); Calc. Creatinine Clearance 26 mL/min (70-130); Calcium 9.1 mg/dL (7.8-10.44); Carbon Dioxide 19 mmol/L (23-31); Chloride 107 mmol/L (98-107); Estimated GFR-MDRD 37; Glucose 83 mg/dL (83-110); Potassium 3.6 mmol/L (3.5-5.1); Sodium 136 mmol/L (136-145)
[2018-12-07 07:21] LABS: Hemoglobin 11.1 g/dL (12.0-16.0); Mean Corpuscular HGB CONC 32.3 g/dL (32.0-36.0); Mean Corpuscular Hemoglobin 25.5 pg (27.0-31.0); Mean Corpuscular Volume 79.1 fL (78.0-98.0); Mean Platelet Volume 10.9 fL (7.4-10.4); Platelet Count 94 thou/uL (130-400); RBC Distribution Width 13.9 % (11.5-14.5); Red Blood Cell (RBC) Count 4.35 mill/uL (4.20-5.40); White Blood Cell (WBC) Count 18.4 thou/uL (4.8-10.8)
[2018-12-07 08:05] LABS: Band 1 % (5-11); Eosinophils 2 % (0-10); Lymphocytes 13 % (21-51); Microcytosis SLIGHT = 6-15 cells (100X) (0-5/hpf); Monocytes 6 % (0-10); Myelocyte 1 % (0-0); Neutrophil 76 % (42-75); Platelet Morphology Comment Appears Decreased; Polychromasia SLIGHT = 2-3 cells (100X) (0-2/hpf); Reactive Lymphocytes 1 % (0-10)
[2018-12-07] MEDS: hydrALAZINE 25 MG TAB PO SCH ×2 (08:05→20:45)
[2018-12-07] MEDS: methylPREDNISolone Sod Succ 40 MG VIAL IVP SCH (08:05)
[2018-12-07] MEDS: Timolol 0.5% Ophth Soln 5 ml Bottle EA EYE SCH ×2 (08:05→20:50)
[2018-12-07 08:12] LABS: MDiff Complete? YES
[2018-12-07] MEDS ORDERED: Midazolam HCl 2 mg/2 ml Vial ONE (08:39)
[2018-12-07] MEDS ORDERED: Sodium Bicarbonate 2.5 MEQ/5 ML VIAL ONE (08:39)
[2018-12-07] MEDS ORDERED: Fentanyl 100 MCG/2 ML VIAL ONE (08:39)
[2018-12-07] MEDS: Heparin 5,000 UNITS/ML VIAL SC SCH ×2 (09:01→20:49)
--- NOTE | 2018-12-07 10:15 | PDOC.HOSPP ---
- Subjective Subjective: Going for nephrostomy tube this AM. Hungry. Patient upset that she didnt get to eat yesterday and now hungry today. Breathing better. No new complaints. - Objective Vital Signs & Weight: Vital Signs (12 hours) Temp Pulse Resp BP BP Pulse Ox 12/07/18 08:05 72 152/63 H 12/07/18 07:24 98.5 F 72 16 152/63 H 97 12/07/18 06:23 71 16 100 12/07/18 04:00 98.4 F 72 18 128/59 L 96 12/07/18 00:16 100.6 F H 84 18 135/57 L 95 Weight Admit Weight 139 lb 3.198 oz Weight 139 lb 3.198 oz Most Recent Monitor Data Heart Rate from ECG 74 NIBP 123/60 NIBP BP-Mean 81 Respiration from ECG 16 SpO2 99 I&O: 12/06/18 12/07/18 12/08/18 06:59 06:59 06:59 Intake Total 550 Balance 550 Result Diagrams: 12/07/18 06:28 12/07/18 06:28 Hospitalist ROS - Review of Systems All other systems reviewed; all pertinent +/- noted in HPI/Subj - Medication Medications: Active Medications Generic Name Dose Route Start Last Admin Trade Name Freq PRN Reason Stop Dose Admin Acetaminophen 650 mg 12/02/18 18:44 12/07/18 00:25 Tylenol PO 650 mg Q4H PRN Administration Headache/Fever/Mild Pain (1-3) Albuterol/Ipratropium 3 ml 12/04/18 15:00 12/07/18 06:23 Duoneb NEB 3 ml [id number] EM Administration Heparin Sodium (Porcine) 5,000 units 12/03/18 21:00 12/07/18 09:01 Heparin SC Not Given BID EM Hydralazine HCl 25 mg 12/02/18 21:00 12/07/18 08:05 Apresoline PO 25 mg BID EM Administration Piperacillin Sod/Tazobactam 100 mls @ 200 mls/hr 12/03/18 20:00 12/07/18 04: 33 Sod 2.25 gm/ Sodium Chloride IVPB 100 mls 0400,1200,2000 EM Administration Latanoprost 1 drop 12/02/18 21:00 12/06/18 20:30 Xalatan 0.005% Ophth Soln EA EYE 1 drop HS EM Administration Methylprednisolone Sodium Succinate 40 mg 12/05/18 09:00 12/07/18 08:05 Solu-Medrol IVP 40 mg DAILY EM Administration Timolol Maleate 1 drop 12/02/18 21:00 12/07/18 08:05 Timoptic 0.5% Ophth Soln EA EYE 1 drop BID EM Administration - Exam General Appearance: NAD Eye: anicteric sclera ENT: no oropharyngeal lesions, moist mucosa Neck: supple, symmetric Heart: no murmur, no gallops, no rubs Heart - other findings: S1 and S2 present Respiratory: no rales, no ronchi, normal chest expansion, wheezes (Improving) Gastrointestinal: soft, non-tender, non-distended, no palpable masses, no guarding, no rigidity Extremities: no edema Skin: no lesions, no rashes Neurological: CN's grossly intact, no weakness, no focal deficits Musculoskeletal: no muscle wasting Psychiatric: normal affect, A&O x 3 Hosp A/P (1) COPD with exacerbation Code(s): J44.1 - CHRONIC OBSTRUCTIVE PULMONARY DISEASE W (ACUTE) EXACERBATION Status: Acute (2) Acute respiratory failure Code(s): J96.00 - ACUTE RESPIRATORY FAILURE, UNSP W HYPOXIA OR HYPERCAPNIA Status: Acute (3) Shortness of breath Code(s): R06.02 - SHORTNESS OF BREATH Status: Acute (4) Hydronephrosis Code(s): N13.30 - UNSPECIFIED HYDRONEPHROSIS Status: Acute (5) Nephrolithiasis Status: Acute (6) E coli bacteremia Code(s): R78.81 - BACTEREMIA Status: Acute (7) HTN (hypertension) Code(s): I10 - ESSENTIAL (PRIMARY) HYPERTENSION Status: Chronic (8) Sepsis Code(s): A41.9 - SEPSIS, UNSPECIFIED ORGANISM Status: Acute (9) Bacteremia Code(s): R78.81 - BACTEREMIA Status: Acute (10) Acute renal failure Status: Acute (11) Sepsis Code(s): A41.9 - SEPSIS, UNSPECIFIED ORGANISM Status: Acute (12) DONTE (acute kidney injury) Code(s): N17.9 - ACUTE KIDNEY FAILURE, UNSPECIFIED Status: Acute (13) Acute pyelonephritis Code(s): N10 - ACUTE PYELONEPHRITIS Status: Acute (14) Neutrophilic leukocytosis Code(s): D72.9 - DISORDER OF WHITE BLOOD CELLS, UNSPECIFIED Status: Acute (15) Other septicemia due to Gram-negative organism Code(s): A41.59 - OTHER GRAM-NEGATIVE SEPSIS Status: Acute (16) Moderate dehydration Code(s): E86.0 - DEHYDRATION Status: Resolved - Plan Plan: [facility] Pulm/ CC consult, recommendations appreciated Nephrology consult, recommendations appreciated Urology consult, recommendations appreciated Urologic: -Nephrostomy tube -CT Abd - stone protocol -Renal function slight uptrend, near her baseline -Sepsis improving -UTI - On broad spectrum ABX -Bacteremia with e.coli -IV fluids for DONTE PULM: -Breathing well on low flow NC, will attempt to wean as able - if unable to wean would require home O2 -IV steroids -Duo nebs scheduled -On broad spectrum ABX will cover for pulmonary specific organisms -CT chest noted -COPD exacerbation -ABG noted, acute respiratory failure with hypoxia -1.1cm lesion will need outpatient follow up/ surveillance in 3 months with repeat imaging -tobacco abuse for greater than 40 years - quit smoking in 1991 Continue home meds as able GI and DVT PPX
--- NOTE | 2018-12-07 10:59 | SPC ---
EXAM: SPC INJ PROC NEPH /URET EXIST PROVIDED CLINICAL HISTORY: Obstructing proximal left ureteral calculus with moderate left hydronephrosis. COMPARISON: CT abdomen on 12/04/2018. TECHNIQUE: The procedure including the risks and complications were explained to the patient, and informed conse nt was obtained. The patient was placed on the angiography table in the prone position. Limited sonographic evaluation of the left kidney was performed demonstrating moderate left hydronephrosis. A n area overlying the inferior pole posterior left renal calyx was marked on the skin surface. The area was then meticulously prepped and draped in usual sterile fashion. The skin and subcutaneous tissues were infiltrated with buffered 1% lidocaine for local anesthesia at the intended puncture site. Utilizing concurrent real-time ultrasound guidance, an inferior pole posterior left renal calyx was accessed utilizing a 21-gauge micropuncture needle. There was a return of urine. Contrast was injected confirming placement in the renal collecting system. The needle was exchanged over a 0.018 inch guidewire for a 5 [place] introducer sheath. The guidewire was removed , and contrast was injected confirming placement within the proximal ureter. The introducer sheath was exchanged over a 0.035 inch Amplatz guidewire for an 8 [place] tissue dilator followed by placemen t of an 8 [place] percutaneous nephrostomy tube. The distal portion of the catheter was coiled within the renal pelvis. Contrast injection confirms placement in the collecting system. The catheter was flushed and placed to gravity drainage. Catheter was sutured in place utilizing 2-0 Ethilon suture material, and a dry sterile dressing was placed. The patient tolerated the procedure well and without immediate complication. Fluoroscopy: Time-2.8 minutes Total dose-12,597 mGy centimeter squared IMPRESSION: 1. Moderate left hydronephrosis. 2. Technically successful ultrasound and fluoroscopic guided placement of an 8 [place] percutaneous le ft nephrostomy tube.
--- NOTE | 2018-12-07 11:05 | PRG ---
DATE OF SERVICE: 12/07/2018 SUBJECTIVE: Patient was seen and examined at bedside and overnight events noted. Patient denies any shortness of breath or chest pain or palpitation. No history of nausea or vomiting or diarrhea or fever or chills or cramps. OBJECTIVE: GENERAL: This is a well-built female in no apparent distress. VITAL SIGNS: Temperature . Heart rate 72. Respiratory rate 16. Blood pressure 152/63. HEENT: Atraumatic, normocephalic. Oral mucosa is moist NECK: Supple. CARDIOVASCULAR: S1, S2 heard. Rate and rhythm regular. RESPIRATORY: Clear to auscultation. GASTROINTESTINAL: Abdomen is soft. MUSCULOSKELETAL: No tenderness. No edema. DERMATOLOGIC: No skin rash. NEUROLOGIC: Alert and awake and oriented X3. No focal neurologic deficits. Moving all the extremities. PSYCHIATRIC: Mood and affect normal. LABORATORY DATA: Potassium is 3.6, BUN is 30, creatinine is 1.6. ASSESSMENT AND PLAN: 1. Acute kidney injury on chronic kidney stage 3 with slight bump in creatinine today. Continue hydration. Avoid nephrotoxins. 2. Obstructive uropathy, status post nephrostomy . 3. Nephrolithiasis. 4. Hypertension. 5. Edema. 6. Anemia. 7. Hyperkalemia, stable. Monitor renal function. Avoid nephrotoxins. Continue antibiotics and oral hydration as tolerated. We will follow. Job ID: [id number]
[2018-12-07] MEDS: Latanoprost 0.005% Ophth Soln 2.5 ml Bottle EA EYE SCH (20:44)
[2018-12-08] MEDS: Piperacillin/Tazobactam 2.25 GM in Sodium Chloride 0.9% 100 ML IVPB SCH ×3 (03:32→19:39)
[2018-12-08 06:34] LABS: Hemoglobin 9.7 g/dL (12.0-16.0); Mean Corpuscular HGB CONC 32.5 g/dL (32.0-36.0); Mean Corpuscular Hemoglobin 25.6 pg (27.0-31.0); Mean Corpuscular Volume 78.8 fL (78.0-98.0); Mean Platelet Volume 11.1 fL (7.4-10.4); Platelet Count 97 thou/uL (130-400); RBC Distribution Width 13.8 % (11.5-14.5); Red Blood Cell (RBC) Count 3.77 mill/uL (4.20-5.40); White Blood Cell (WBC) Count 26.9 thou/uL (4.8-10.8)
[2018-12-08 06:35] LABS: Anion Gap 11 mmol/L (10-20); BUN (Urea Nitrogen) 30 mg/dL (9.8-20.1); Calc. Creatinine Clearance 32 mL/min (70-130); Calcium 8.4 mg/dL (7.8-10.44); Carbon Dioxide 20 mmol/L (23-31); Chloride 107 mmol/L (98-107); Estimated GFR-MDRD 46; Glucose 91 mg/dL (83-110); Sodium 135 mmol/L (136-145)
[2018-12-08 06:39] LABS: Potassium 2.9 mmol/L (3.5-5.1)
[2018-12-08 06:41] LABS: Band 2 % (5-11); Hypochromia SLIGHT = 6-15 cells (100X) (0-5/hpf); MDiff Complete? YES; Monocytes 4 % (0-10); Neutrophil 94 % (42-75); Platelet Morphology Comment Appears Decreased
[2018-12-08] MEDS ORDERED: Potassium Chloride 20 MEQ TAB PO SCH (07:00)
[2018-12-08] MEDS: hydrALAZINE 25 MG TAB PO SCH ×2 (08:14→19:51)
[2018-12-08] MEDS: methylPREDNISolone Sod Succ 40 MG VIAL IVP SCH (08:14)
[2018-12-08] MEDS: Timolol 0.5% Ophth Soln 5 ml Bottle EA EYE SCH ×2 (08:14→19:59)
[2018-12-08] MEDS: Heparin 5,000 UNITS/ML VIAL SC SCH ×2 (08:14→20:05)
--- NOTE | 2018-12-08 08:49 | PRG ---
DATE OF SERVICE: 12/08/2018 SUBJECTIVE: An 83-year-old female who is being seen for acute kidney injury. The patient denied any nausea, vomiting, or chest pain. OBJECTIVE: See above. The patient is awake and alert, in no acute distress. VITAL SIGNS: Afebrile, pulse 67, breathing 16, blood pressure 128/58. GENERAL APPEARANCE AND MENTAL STATUS: Fair. HEAD/NECK: Normocephalic. Atraumatic. EYES: EOMI. No deformity. EARS: Clear. No ulcers. NOSE: Intact. No lesions. MOUTH: Clear. No discharge. THROAT: Clear. No exudate. LUNGS: Clear. No crackles. CARDIAC: S1, S2. No rub. ABDOMEN: Benign. Bowel sounds positive. GENITALIA/RECTUM: Ramos absent. BACK/EXTREMITIES: Edema 0+. NEUROLOGICAL: Alert and motor intact. SKIN: LYMPHATICS: LABORATORY DATA: Labs are reviewed. ASSESSMENT AND PLAN: 1. Chronic kidney disease, stage 3, stable. 2. Acute kidney injury, resolved. 3. Acute tubular necrosis, resolved. 4. Hypokalemia. Would recommend 40 mEq of potassium. Job ID: [id number]
--- NOTE | 2018-12-08 14:38 | PDOC.HOSPP ---
- Subjective Subjective: Seen and examined. Nephrostomy tube with bloody urine, though draining. Patient states she does not know how to take care of her nephrostomy tube and she states that her neighbor or sister down the road might be able to help. Will need education on nephrostomy tube care and home health. Breathing well on room air. - Objective Vital Signs & Weight: Vital Signs (12 hours) Temp Pulse Resp BP BP BP Pulse Ox 12/08/18 10:57 67 16 96 12/08/18 08:14 67 147/61 H 12/08/18 08:00 96 12/08/18 07:33 98.3 F 67 20 147/61 H 96 12/08/18 06:40 67 18 100 12/08/18 04:00 98.3 F 67 16 128/58 L 96 Weight Admit Weight 139 lb 3.198 oz Weight 139 lb 3.198 oz Most Recent Monitor Data Heart Rate from ECG 74 NIBP 123/60 NIBP BP-Mean 81 Respiration from ECG 16 SpO2 99 I&O: 12/07/18 12/08/18 12/09/18 06:59 06:59 06:59 Intake Total 1640 Output Total 1770 Balance -130 Result Diagrams: 12/08/18 06:08 12/08/18 06:08 Hospitalist ROS - Review of Systems All other systems reviewed; all pertinent +/- noted in HPI/Subj - Medication Medications: Active Medications Generic Name Dose Route Start Last Admin Trade Name Freq PRN Reason Stop Dose Admin Acetaminophen 650 mg 12/02/18 18:44 12/07/18 00:25 Tylenol PO 650 mg Q4H PRN Administration Headache/Fever/Mild Pain (1-3) Albuterol/Ipratropium 3 ml 12/04/18 15:00 12/08/18 10:57 Duoneb NEB 3 ml [id number] EM Administration Heparin Sodium (Porcine) 5,000 units 12/03/18 21:00 12/08/18 08:14 Heparin SC 5,000 units BID EM Administration Hydralazine HCl 25 mg 12/02/18 21:00 12/08/18 08:14 Apresoline PO 25 mg BID EM Administration Piperacillin Sod/Tazobactam 100 mls @ 200 mls/hr 12/03/18 20:00 12/08/18 11: 13 Sod 2.25 gm/ Sodium Chloride IVPB 100 mls 0400,1200,2000 EM Administration Latanoprost 1 drop 12/02/18 21:00 12/07/18 20:44 Xalatan 0.005% Ophth Soln EA EYE 1 drop HS EM Administration Methylprednisolone Sodium Succinate 40 mg 12/05/18 09:00 12/08/18 08:14 Solu-Medrol IVP 40 mg DAILY EM Administration Timolol Maleate 1 drop 12/02/18 21:00 12/08/18 08:14 Timoptic 0.5% Ophth Soln EA EYE 1 drop BID EM Administration - Exam General Appearance: NAD, awake alert Eye: anicteric sclera ENT: no oropharyngeal lesions, moist mucosa Neck: symmetric, no JVD, no thyromegaly Heart: no murmur, no gallops, no rubs Respiratory: no wheezes, no rales, no ronchi Gastrointestinal: non-tender, non-distended, normal bowel sounds, no guarding, no rigidity Gastrointestinal - other findings: Ostomy Extremities: no edema Extremeties - other findings: - left nephrostomy with bloody red urine Skin: no lesions Neurological: CN's grossly intact, no focal deficits Musculoskeletal: no muscle wasting Psychiatric: normal affect, A&O x 3 Hosp A/P (1) COPD with exacerbation Code(s): J44.1 - CHRONIC OBSTRUCTIVE PULMONARY DISEASE W (ACUTE) EXACERBATION Status: Acute (2) Acute respiratory failure Code(s): J96.00 - ACUTE RESPIRATORY FAILURE, UNSP W HYPOXIA OR HYPERCAPNIA Status: Acute (3) Shortness of breath Code(s): R06.02 - SHORTNESS OF BREATH Status: Acute (4) Hydronephrosis Code(s): N13.30 - UNSPECIFIED HYDRONEPHROSIS Status: Acute (5) Nephrolithiasis Status: Acute (6) E coli bacteremia Code(s): R78.81 - BACTEREMIA Status: Acute (7) HTN (hypertension) Code(s): I10 - ESSENTIAL (PRIMARY) HYPERTENSION Status: Chronic (8) Sepsis Code(s): A41.9 - SEPSIS, UNSPECIFIED ORGANISM Status: Acute (9) Bacteremia Code(s): R78.81 - BACTEREMIA Status: Acute (10) Acute renal failure Status: Acute (11) Sepsis Code(s): A41.9 - SEPSIS, UNSPECIFIED ORGANISM Status: Acute (12) DONTE (acute kidney injury) Code(s): N17.9 - ACUTE KIDNEY FAILURE, UNSPECIFIED Status: Acute (13) Acute pyelonephritis Code(s): N10 - ACUTE PYELONEPHRITIS Status: Acute (14) Neutrophilic leukocytosis Code(s): D72.9 - DISORDER OF WHITE BLOOD CELLS, UNSPECIFIED Status: Acute (15) Other septicemia due to Gram-negative organism Code(s): A41.59 - OTHER GRAM-NEGATIVE SEPSIS Status: Acute (16) Moderate dehydration Code(s): E86.0 - DEHYDRATION Status: Resolved - Plan Plan: Med/ surg Home healthcare to be set up by CM to help in nephrostomy tube management, will need more education on how to care for and ensure Nephrology consult, recommendations appreciated Urology consult, recommendations appreciated Urologic: -Nephrostomy tube, will need education on care, how to drain and manage -CT Abd - stone protocol -Renal function slight uptrend, near her baseline -Sepsis improving -UTI - On broad spectrum ABX -Bacteremia with e.coli -DONTE, resolved with IV fluids PULM: -Breathing without supplemental oxygen -IV steroids -Duo nebs scheduled -On broad spectrum ABX will cover for pulmonary specific organisms -CT chest noted -COPD exacerbation -ABG noted, acute respiratory failure with hypoxia -1.1cm lesion will need outpatient follow up/ surveillance in 3 months with repeat imaging -tobacco abuse for greater than 40 years - quit smoking in 1991 Continue home meds as able GI and DVT PPX
[2018-12-08] MEDS: Potassium Chloride 20 MEQ TAB PO SCH (17:16)
--- NOTE | 2018-12-08 18:25 | PRG ---
DATE OF SERVICE: 12/08/2018 SUBJECTIVE: The patient states that she is doing fine. She is not complaining of any difficulty in her flank or abdomen. She had a nephrostomy tube placed yesterday, which was draining clear yellow urine. Of note, her white blood cell count has been going up and her creatinine also bumped, but has now gotten better somewhat today. OBJECTIVE: VITAL SIGNS: Temperature 98.3, pulse 67, respirations 18, blood pressure 147/61, and saturation 96% on room air. GENERAL: No apparent distress, communicative, and alert. CARDIOVASCULAR: Regular rate and rhythm. ABDOMEN: Soft, nontender, nondistended. Positive bowel sounds. GENITOURINARY: Urostomy in place with clear yellow urine. BACK: Left nephrostomy tube in place with maroon-colored urine. EXTREMITIES: No clubbing, cyanosis, or edema. LABORATORY EVALUATION: The full set of labs are in the [facility], which I have reviewed. Of note, the patient's white count has increased up to 26,900, hemoglobin 9.7. Creatinine is 1.32. ASSESSMENT AND PLAN: An 83-year-old black female with a history of bladder cancer, status post left nephrostomy tube placement with increasing white count, however, normalization of her creatinine is possible that the nephrostomy tube has stirred up a little bit of bacteremia, which is resulting in the elevated white count, although this could potentially be a new infection of her pleural effusions and potentially should be evaluated further. I would recommend continuation of antibiotics until complete treatment of any possible infection. Nephrostomy tube should be left to gravity drainage. The patient will need to be able to empty her nephrostomy tube bag at home, which should not be excessively difficult. Once she has been adequately treated with antibiotics and pleural effusions have settled down, we can discuss antegrade ureteroscopy and percutaneous nephrolithotomy at a later date. For now, from my standpoint, I would not recommend anything further. I will continue to follow along and make recommendations as needed. Job ID: [id number]
[2018-12-08] MEDS: Latanoprost 0.005% Ophth Soln 2.5 ml Bottle EA EYE SCH (19:58)
[2018-12-09] MEDS: Piperacillin/Tazobactam 2.25 GM in Sodium Chloride 0.9% 100 ML IVPB SCH ×2 (03:32→11:21)
[2018-12-09 06:14] LABS: Anion Gap 14 mmol/L (10-20); BUN (Urea Nitrogen) 28 mg/dL (9.8-20.1); Calc. Creatinine Clearance 40 mL/min (70-130); Calcium 8.3 mg/dL (7.8-10.44); Carbon Dioxide 18 mmol/L (23-31); Chloride 110 mmol/L (98-107); Estimated GFR-MDRD 60; Glucose 78 mg/dL (83-110); Potassium 3.2 mmol/L (3.5-5.1); Sodium 139 mmol/L (136-145)
[2018-12-09 06:17] LABS: Band 4 % (5-11); Eosinophils 2 % (0-10); Hemoglobin 8.9 g/dL (12.0-16.0); Lymphocytes 8 % (21-51); MDiff Complete? YES; Mean Corpuscular HGB CONC 32.9 g/dL (32.0-36.0); Mean Corpuscular Hemoglobin 25.8 pg (27.0-31.0); Mean Corpuscular Volume 78.6 fL (78.0-98.0); Mean Platelet Volume 10.2 fL (7.4-10.4); Metamyelocyte 1 % (0-0); Monocytes 5 % (0-10); Myelocyte 1 % (0-0); Neutrophil 79 % (42-75); Platelet Count 162 thou/uL (130-400); Platelet Morphology Comment Appears Adequate; RBC Distribution Width 13.8 % (11.5-14.5); Red Blood Cell (RBC) Count 3.43 mill/uL (4.20-5.40); White Blood Cell (WBC) Count 20.3 thou/uL (4.8-10.8)
[2018-12-09] MEDS: Potassium Chloride 20 MEQ TAB PO SCH (07:58)
[2018-12-09] MEDS: Heparin 5,000 UNITS/ML VIAL SC SCH (07:58)
[2018-12-09] MEDS: hydrALAZINE 25 MG TAB PO SCH (07:58)
[2018-12-09] MEDS: Timolol 0.5% Ophth Soln 5 ml Bottle EA EYE SCH (07:59)
[2018-12-09 14:40] VITALS: BP 158/67; TEMP 98.4
--- NOTE | 2018-12-10 03:06 | DIS ---
DATE OF ADMISSION: 12/02/2018 DATE OF DISCHARGE: 12/09/2018 REASON FOR HOSPITALIZATION: Abdominal pain. SIGNIFICANT FINDINGS: The patient was found to have hydronephrosis, chronic obstructive pulmonary disease with acute exacerbation, and urinary tract infection. PROCEDURES PERFORMED/TREATMENTS RENDERED: The patient was seen by Urology, Nephrology, and Pulmonary/Critical Care for maximum medical therapy-please see full consultation and progress notes from all specialists for details. The patient had nephrostomy tube placement on 12/07/2018, please see full operative report for details. The patient tolerated procedure well without intraoperative complications. CONDITION ON DISCHARGE: Stable. SPECIFIC INSTRUCTIONS FOR THE PATIENT/FAMILY: 1. The patient is recommended to take all medications as directed, to be re-evaluated by primary care physician in the next 5 to 7 days. 2. The patient is recommended to follow up with primary care physician in the next 5 to 7 days. 3. The patient is recommended to follow up with Nephrology in the next 1 to 2 weeks. 4. The patient is recommended to follow up with Urology in the next 1 to 2 weeks. 5. The patient is recommended to follow up with Pulmonary/Critical care physician in the outpatient clinic in the next 1 to 2 months. DISCHARGE MEDICATIONS: Please see full discharge medication list for details with the following new medications. 1. Cefpodoxime 200 mg one tablet p.o. b.i.d. for the next 7 days, 14 tablets. 2. Albuterol sulfate HFA inhaler two puffs p.o. q.4 hours p.r.n. shortness of breath or wheezing. HOSPITAL COURSE: Ms. Lo is a pleasant 83-year-old female, who presented to [facility] on 12/02/2018 with abdominal pain. The patient initially presented to [place] and was transferred to [facility] for higher level of care. The patient was found to be bacteremic with E coli, please see full microbial reports for details. The patient also found to have urinary tract infection. Culture data did not grow one definitive organism and that was a mixed specimen. The patient was placed on broad-spectrum antibiotics with good improvement of symptoms. The patient had repeat blood cultures, which demonstrated sterilization of the blood. The patient with imaging of the abdomen that demonstrated hydronephrosis and Urology recommended nephrostomy tube placement. This was performed on 12/07/2018, please see full operative report for details, nephrostomy tube was placed without complications. The patient's renal function normalized. The patient did have some shortness of breath and CT scan of the chest was completed, please see full CT scan results for details. The patient with extensive past medical history of tobacco use, was identified to have COPD with acute exacerbation. The patient was already on pulmonary antibiotics that were covering for bladder infection with broad-spectrum coverage and the addition of IV steroids and nebulizer therapy did improve her pulmonary status. The patient's oxygenation normalized and she was weaned off oxygen entirely. The patient was also found to have 11 mm solid nodule in the superior aspect of the left upper lobe. I explicitly informed the patient about this nodule and recommended that she will need followup CT scan in 3 months. The patient did have consultation by Pulmonology, so that she does have someone to follow up with in the outpatient setting on this pulmonary nodule with CT scan imaging. Rides Supervisor will continue to monitor this pulmonary lesion in the outpatient setting. The patient recommended safe for discharge by all specialists on 12/09/2018. The patient recommended safe for discharge home with home healthcare for nephrostomy tube management in addition to physical therapy and occupational therapy treatment. The patient recommended to take all medications as directed, to be re-evaluated by primary care physician in the next 5 to 7 days. The patient is recommended to follow up with all specialists as directed or return to acute care hospital immediately if unable to be seen by a specialist. The patient is recommended to return to acute care hospital immediately if signs or symptoms return, worsen, or any other new symptoms occur. Greater than 42 minutes spent coordinating care and discharge process for this patient. Job ID: [id number]
== END 2018-12-09 13:15 | disposition home health service (06) | DRG 871 ==
LOC: ERS 13:43 → T4-B 16:58 → IMCU/EMU 12-04 13:15 → T4-A 12-05 14:19
PROVIDERS: ADMIT Internal Medicine; ATTEND Internal Medicine
PROC: 0T9430Z Drainage of Left Kidney Pelvis with Drainage Device, Percutaneous Approach (ICD-10-PCS; principal; 2018-12-04)
DX: A41.51 Sepsis due to Escherichia coli [E. coli] (principal); J96.01 Acute respiratory failure with hypoxia; N17.9 Acute kidney failure, unspecified; E87.2 Acidosis; J44.1 Chronic obstructive pulmonary disease with (acute) exacerbation; N13.6 Pyonephrosis; H40.9 Unspecified glaucoma; E87.6 Hypokalemia; E86.0 Dehydration; N18.3 Chronic kidney disease, stage 3 (moderate); I12.9 Hypertensive chronic kidney disease with stage 1 through stage 4 chronic kidney disease, or unspecified chronic kidney disease; D63.1 Anemia in chronic kidney disease; R91.1 Solitary pulmonary nodule; Z85.51 Personal history of malignant neoplasm of bladder; Z90.710 Acquired absence of both cervix and uterus; Z87.891 Personal history of nicotine dependence; Z79.899 Other long term (current) drug therapy
CPT/HCPCS: 36415; 50431; 50432; 71250; 74176; 76770; 76775; 80048; 82805; 83605; 83690; 85025; 85610; 94640; 96360; C1729; J1644; J2250; J2543; J2920; J3010; J3490; J7620

== ENCOUNTER 2019-01-27 06:59 | Day surgery (SDC) | payer MEDICARE, BC ==
[2019-01-26 12:13] VITALS: BMI 21.6
[2019-01-27 07:56] VITALS: BP 139/69; TEMP 98
--- NOTE | 2019-01-27 10:38 | SPC ---
LEFT PERCUTANEOUS NEPHROSTOMY CATHETER EXCHANGE: INDICATIONS: The patient has a chronic indwelling left percutaneous nephrostomy. There is a history of bladder can cer. The patient presents for catheter exchange. FINDINGS: A new 8 Montenegrin nephrostomy catheter was exchanged over an 0.035 Glidewire under fluoroscopic guidance . Post procedure film shows good position and function of the new catheter. PROCEDURE IN DETAIL: The left indwelling percutaneous nephrostomy catheter was prepped and draped in a sterile manner. The catheter was injected with contrast. Contrast was difficult to inject, indicating occlusion of the c atheter. The pigtail was unlocked and an 0.035 Stiff [place] was introduced into the catheter. This would not pa ss through the catheter due to occlusion at the end of the catheter due to calcification. Other trina ters were attempted including an Amplatz. After multiple attempts an 0.035 angle-tipped Stiff [place] was able to be passed through a sidehole. T he wire was then able to be directed into the left ureter and down into the distal left ureter under fluoroscopy. The catheter was then removed over this wire. A new 8 Montenegrin nephrostomy catheter was then advanced over the wire. The stiffener was removed. The w anson was removed. The pigtail was formed within the left renal pelvis. Contrast injection confirmed go od position and function of the new catheter. This catheter was sutured in place at the skin. The patient tolerated the procedure well. POS: OFF
== END 2019-01-27 09:10 | disposition home or self-care (01) ==
LOC: SPEC 06:59
PROVIDERS: ATTEND Urology
PROC: 0T25X0Z Change Drainage Device in Kidney, External Approach (ICD-10-PCS; principal; 2019-01-27)
DX: N20.2 Calculus of kidney with calculus of ureter (principal); I11.9 Hypertensive heart disease without heart failure; M81.0 Age-related osteoporosis without current pathological fracture; E78.5 Hyperlipidemia, unspecified; Z85.51 Personal history of malignant neoplasm of bladder; Z87.891 Personal history of nicotine dependence; Z79.899 Other long term (current) drug therapy; Z90.6 Acquired absence of other parts of urinary tract; Z93.6 Other artificial openings of urinary tract status
CPT/HCPCS: 50431; 50436; 75984; 80048; 81001; 85027; 85610; 85730; 87086; 93005; 93010; C1769

== ENCOUNTER 2019-01-27 08:30 | Inpatient (IN) | payer MEDICARE, BC ==
[2019-01-27 10:01] VITALS: BMI 20.9
[2019-02-11] MEDS ORDERED: Gentamicin 80 MG/2 ML VIAL ONE (06:51)
[2019-02-11] MEDS ORDERED: Sodium Chloride 0.9% 100 ML ONE (06:52)
[2019-02-11] MEDS ORDERED: Fentanyl 100 MCG/2 ML VIAL ONE ×2 (06:54→11:02)
--- NOTE | 2019-02-11 07:44 | RAD ---
KUB INDICATION: Left renal stone COMPARISON: CT of the abdomen and pelvis dated December 04, 2018 FINDINGS: Bowel gas: Nonspecific but without overt appearance of obstruction. Lung bases: Clear. Additional findings: The large staghorn calculus involving the superior pole of the left kidney is st able. Percutaneous nephrostomy tube projects in the expected position. There is a right lower quadrant ostomy. There is postprocedural change of a cystectomy. There are suspected stones in the ri ght lower quadrant neobladder. These stones measure 1.9, 2.3 and 2 cm in size. Osseous structures: No acute osseous abnormality is demonstrated. IMPRESSION: 1. Stable left renal staghorn calculus. 2. Stable suspected bladder stones within the right lower quadrant neobladder. 3. Left percutaneous nephrostomy tube projects in the expected position.
[2019-02-11] MEDS ORDERED: Iothalamate Meglumine 60% 50 ML VIAL FS ONE (08:33)
[2019-02-11] MEDS ORDERED: Promethazine HCl 25 MG/ML VIAL ONE (10:44)
[2019-02-11] MEDS ORDERED: diphenhydrAMINE 25 MG CAP PO PRN (10:48)
[2019-02-11] MEDS ORDERED: HYDROcodone/Acetaminophen 5/325 mg Tablet PO PRN (10:48)
[2019-02-11] MEDS ORDERED: Morphine 4 MG/ML VIAL SLOW IVP PRN (10:48)
[2019-02-11] MEDS ORDERED: hydrALAZINE 20 MG/ML VIAL SLOW IVP PRN (10:48)
[2019-02-11] MEDS ORDERED: Morphine 2 MG/ML SYRINGE SLOW IVP PRN (10:48)
[2019-02-11] MEDS ORDERED: Acetaminophen 500 MG TAB PO PRN (10:48)
[2019-02-11] MEDS ORDERED: Mag-Al 1200 mg/1200 mg/30 ML UDCUP PO PRN (10:48)
[2019-02-11] MEDS ORDERED: Ondansetron PF 4 MG/2 ML Vial IVP PRN (10:48)
[2019-02-11] MEDS ORDERED: Promethazine HCl 25 MG/ML VIAL SLOW IVP PRN (11:27)
[2019-02-11] MEDS ORDERED: Promethazine HCl 25 MG/ML VIAL IM PRN (11:27)
[2019-02-11] MEDS ORDERED: Ondansetron HCl/PF 4 MG/2 ML Vial IVP PRN (11:27)
--- NOTE | 2019-02-11 14:26 | OP ---
DATE OF PROCEDURE: 02/11/2019 SERVICES: Urology. PREOPERATIVE DIAGNOSIS: Left nephrolithiasis. POSTOPERATIVE DIAGNOSIS: Left nephrolithiasis. PROCEDURE PERFORMED: Left-sided percutaneous nephrolithotomy greater than 2 cm. INDICATIONS FOR PROCEDURE: Ms. Lo is an 84-year-old black female with a history of bladder cancer, who has undergone a cystectomy with ileal conduit. She has a known left-sided branched calculus, which had been previously followed by Dr. Ocampo. Unfortunately, the patient ended up in the hospital with left hydronephrosis and a stone in the mid ureter resulting in urosepsis. She underwent a nephrostomy tube placement at that time. She has been treated with antibiotics, and is now being brought in for definitive stone management. Risks and benefits have been discussed and she has agreed to proceed forward. DESCRIPTION OF PROCEDURE: After identification of armband and verification of consent, the patient was brought back to the operating room, where she underwent general anesthesia with endotracheal intubation. She was then placed in the prone position and prepped and draped in usual sterile fashion. After appropriate time-out, a Super Stiff wire was advanced through the nephrostomy catheter, which was already in place into the renal pelvis. The nephrostomy catheter was then removed and a dual-lumen catheter was advanced over the Super stiff wire into the renal pelvis. The second lumen of the dual-lumen was then used to navigate an angled Glidewire down the ureter into the ileal conduit. The Super Stiff was then removed and the dual-lumen was advanced forward over the Glidewire into the mid ureter. The Super Stiff wire was then placed through the initial lumen and the Glidewire removed and an another Super Stiff wire brought into the second lumen as a safety wire to keep within the ileal conduit. The dual-lumen was then removed and one of the wire was affixed to the drapes as a safety wire. The other wire was then used to guide a NephroMax balloon dilator after skin incision was made where the wires were going in using an 11 blade. Hemostats were used to gently dilate the fascia and then, the NephroMax balloon dilator was advanced forward until the tip could be seen just at the kidney. The balloon was inflated to 20 atmospheres, which resulted in nice dilation of the fascia. A clear 30-Chilean nephroscope sheath was then advanced over the balloon into the renal calyx. The balloon was then removed leaving both wires in place. A nephroscope was then brought into the kidney and there was very little bleeding and the sheath was positioned in a good position. The renal pelvis did not have any visible stone. There were a few fragments which were removed. The stone was identified in the upper pole by fluoroscopy, but the rigid nephroscope could not reach this. We switched out the nephroscope for ureteroscope and went down the ureter to look for the 6 mm stone, which had previously been seen on CT scan. This was no longer present indicating that either during the manipulations or previously the patient had passed the stone. The ureteroscope was passed all the way into the ileal conduit and no stone was identified up to that point. Satisfied with the procedure up to this point, the ureteroscope was removed and a flexible cystoscope was brought in through the nephroscope sheath and used to deflect upward into the upper pole where the large branch calculus was identified. The stone was seen at this location and using a 275 micron ball-tip laser fiber, the stone was fragmented into multiple pieces. At some point, the infundibulum to the calyx was too narrow to allow passage of the cystoscope, so the ureteroscope was used to further fragment the stone until the only remaining fragments were less than 5 mm and there was one large fragment measuring approximately 6 to 8 mm, which could not be accessed using the ureteroscope or with the cystoscope. As such, I felt that this could be treated with shock wave lithotripsy at a later date, so I elected to leave this alone to avoid trauma and damage to the kidney. There was a lot of stone debris within the kidney, which was basketed out using the cystoscope and then the nephroscope was brought back in and then using a 10-Chilean feeding tube. This was used to vacuum out a lot of the stone fragments and clear up a lot of the stones within the renal pelvis. The ureteroscope was then passed back down into the ureter and a lot of the stone debris was blown into the ileal conduit and few fragments were removed. The ureter was then cleared all the way down into the ileal conduit as far as we could tell. Satisfied with all the stone fragments that were accessible or removed, the ureteroscope was then withdrawn and final inspection of the renal pelvis did not identify any additional large calculi. The instruments were all then removed and the 22-Chilean nephrostomy catheter was advanced over the Super Stiff wire into the renal pelvis. The sheath was then removed and a nephrostogram performed, which demonstrated good positioning of the catheter. The balloon was inflated with 2 mL of saline and repeat nephrostogram demonstrated good positioning of the calices with reference to the nephrostomy balloon a 5-Chilean [place] catheter was advanced over the safety wire down into the ileal conduit to act as a stent for the ureter. This was capped off with a lower lock cap and both catheters were sutured into the skin using a 3-0 nylon. The nephrostomy catheter was hooked up to gravity drainage. The drapes were then removed. The patient had a dressing applied, was returned back to the supine position, awakened, taken to PACU for recovery in stable condition. COMPLICATIONS: None. ESTIMATED BLOOD LOSS: Minimal. RETAINED TUBES AND DRAINS: A 5-Chilean Pollack catheter and nephrostomy catheter. SPECIMENS: Stone for stone analysis. DISPOSITION: The patient will be discharged home. We will plan for a repeat procedure after several weeks to bring in for shockwave lithotripsy of the remaining stone fragments in the upper pole of the kidney after which point, the patient should be rendered relatively stone free. Job ID: [id number]
[2019-02-11] MEDS ORDERED: Dexamethasone 20 MG/5 ML VIAL ONE (14:58)
[2019-02-11] MEDS ORDERED: PHENYLEPHRINE-NS 100 MCG/ML 10 ML SYRINGE ONE (14:58)
[2019-02-11] MEDS ORDERED: Rocuronium Bromide 10 MG/ML (10ML VIAL) ONE (14:58)
[2019-02-11] MEDS ORDERED: PROPOFOL 200 MG/20 ML VIAL ONE (14:58)
[2019-02-11] MEDS ORDERED: Ondansetron PF 4 MG/2 ML Vial ONE (14:58)
[2019-02-11] MEDS ORDERED: Lidocaine 1% PF 5 ML VIAL ONE (14:58)
[2019-02-11] MEDS: HYDROcodone/Acetaminophen 5/325 mg Tablet PO PRN (19:09)
[2019-02-11] MEDS ORDERED: Latanoprost 0.005% Ophth Soln 2.5 ml Bottle EA EYE SCH (21:00)
[2019-02-11] MEDS: DorzolamidE/Timolol 2%/0.5% Ophth Soln 10 ml Bottle EA EYE SCH (21:31)
[2019-02-11] MEDS: Docusate 100 MG CAP PO SCH (21:32)
[2019-02-12 06:23] LABS: Anion Gap 10 mmol/L (10-20); BUN (Urea Nitrogen) 15 mg/dL (9.8-20.1); Calc. Creatinine Clearance 31 mL/min (70-130); Calcium 9.3 mg/dL (7.8-10.44); Carbon Dioxide 28 mmol/L (23-31); Chloride 106 mmol/L (98-107); Estimated GFR-MDRD 46; Glucose 100 mg/dL (83-110); Potassium 3.8 mmol/L (3.5-5.1); Sodium 140 mmol/L (136-145)
[2019-02-12 06:27] LABS: #Eosinphils 0.1 thou/uL (0.0-0.7); #Lymphocytes 1.4 thou/uL (1.20-3.40); #Neutrophils 6.3 thou/uL (1.40-6.50); %Basophils 0.2 % (0.0-1.0); %Lymphocytes 16.2 % (21.0-51.0); %Monocytes 11.4 % (0.0-10.0); %Neutrophils 71.3 % (42.0-75.0); Hemoglobin 10.2 g/dL (12.0-16.0); Mean Corpuscular HGB CONC 32.1 g/dL (32.0-36.0); Mean Corpuscular Hemoglobin 26.5 pg (27.0-31.0); Mean Corpuscular Volume 82.5 fL (78.0-98.0); Mean Platelet Volume 8.1 fL (7.4-10.4); Platelet Count 293 thou/uL (130-400); RBC Distribution Width 14.3 % (11.5-14.5); Red Blood Cell (RBC) Count 3.87 mill/uL (4.20-5.40); White Blood Cell (WBC) Count 8.9 thou/uL (4.8-10.8)
[2019-02-12] MEDS: HYDROcodone/Acetaminophen 5/325 mg Tablet PO PRN (06:45)
[2019-02-12] MEDS ORDERED: Sodium Chloride 0.9% 500 ML IV SCH (07:15)
[2019-02-12] MEDS ORDERED: cefTRIAXone\\ROCEPHIN 1 GM in Sodium Chloride 0.9% 100 ML IVPB SCH (08:00)
[2019-02-12] MEDS: DorzolamidE/Timolol 2%/0.5% Ophth Soln 10 ml Bottle EA EYE SCH (08:58)
[2019-02-12] MEDS: Docusate 100 MG CAP PO SCH (08:58)
[2019-02-12] MEDS ORDERED: Amlodipine 5 mg/Benazepril 20 mg CAP PO SCH (09:00)
[2019-02-12] MEDS ORDERED: Non-Formulary Item 1 EACH (Amlodipine Besylate/Benazepril [Amlodipine Besylate/Benazepril PO SCH (09:00)
--- NOTE | 2019-02-12 09:24 | CT ---
CT OF THE ABDOMEN AND PELVIS WITHOUT IV CONTRAST INDICATION: History of nephrostomy tube, neobladder and left staghorn calculus. Concern for bladder s tones COMPARISON: CT abdomen and pelvis without contrast dated December 04, 2018 FINDINGS: This examination is limited for the evaluation of solid organs and vascular structures due to the lac k of intravenous contrast. ABDOMEN: Lung bases: There is bibasilar atelectasis Liver: No focal lesion. Gallbladder: Stable cholelithiasis Pancreas: Normal. Adrenal glands: Normal. Spleen: Normal. Kidneys and ureters: There has been interval placement of a left-sided nephrostomy tube with a antegr vernell stent projecting into the left ureter. The stent terminates in the distal left ureter slightly proximal to the patient's right lower quadrant neobladder. There is mild residual left hydronephrosis . There is been some interval fragmentation of the posterior lateral aspect of the large superior pole left staghorn calculus. There is some calcific fragments seen within the left renal pelvis that measure up to 2.9 mm. There are also additional smaller fragments now present within the inferior pole of the left kidney. No suspicious calculus is seen along the course of the left ureter. There ar e 3 separate bladder stones within the region of the neobladder. One measures 1.6 cm. An additional measures 1.3 cm. One near the neobladder stoma measures 1.4 cm. Small nonobstructing calculi involvin g the inferior pole of the right kidney are now present. This measures up to 4.5 mm. No right-sided hydronephrosis is demonstrated. Vasculature: There are severe vascular calcifications seen involving the visualized vasculature. Lymph nodes:No lymphadenopathy. Free fluid in abdomen:No free fluid is evident. PELVIS: Small and large bowel: There is a mild amount of retained stool within the colon. The small bowel is of normal caliber. Appendix:Not seen Bladder: Surgically resected Rectal and perirectal soft tissues:Normal. Reproductive structures: Surgically absent Free fluid in pelvis: No free fluid is evident. Lymphadenopathy pelvis: No lymphadenopathy is evident. Osseous structures: No acute osseous abnormality. No destructive osteolytic or osteoblastic lesion i s identified. There is scattered degenerative and osteoarthritic changes. Soft tissues:Normal. IMPRESSION: 1. Interval placement of a left-sided nephrostomy tube and antegrade left ureteral stent. The left ur eteral stent terminates just proximal to the patient's right lower quadrant neobladder. Previously seen left ureteral calculus is no longer identified. There is improvement in the left-sided hydroneph rosis. Mild residual left hydronephrosis remains. 2. Interval fragmentation of portions of the posterior lateral aspect of the left renal staghorn calc ulus seen within the superior pole of the left kidney. Calcific fragments from this large staghorn calculus are present now with the left renal pelvis and inferior pole of the left kidney. 3. Interval development of right nephrolithiasis without hydronephrosis. 4. 3 separate bladder stones seen in the region of the neobladder without definite obstruction. 5. Bibasilar atelectasis. 6. Mild amount of retained stool within colon
[2019-02-12 15:17] VITALS: BP 147/72; TEMP 99.4
--- NOTE | 2019-02-15 12:51 | DIS ---
DATE OF ADMISSION: 02/11/2019 DATE OF DISCHARGE: 02/12/2019 ADMITTING DIAGNOSIS: Left nephrolithiasis. DISCHARGE DIAGNOSIS: Left nephrolithiasis. PROCEDURE PERFORMED: Left PCNL with antegrade ureteroscopy. INDICATION FOR PROCEDURE: Ms. Lo is an 84-year-old black female with a left-sided staghorn calculus and a left ureteral stone with a history of cystectomy with ileal conduit. She ended up in the hospital with sepsis secondary to the impacted stone. She ultimately had a percutaneous nephrostomy tube placed and was discharged with antibiotics. She has recovered and is now presenting for definitive management of the upper pole stone as well as the ureteral stone. All risks and benefits were discussed and the full H and P can be found in the scanned portion of the [facility] [facility] system. HOSPITAL COURSE: After surgery (please see operative note for details), the patient was admitted to the hospital for postoperative recovery. She had her urostomy bag in place for urine drainage as well as a left-sided nephrostomy catheter and ureteral catheter. She did well on postop day #1 without any significant pain and her urine was very clear. She underwent a CT on postop day #1 as well, which demonstrated partial fragmentation of the upper pole stone with some debris within the renal pelvis, but no ureteral calculus which was seen within the ureter or any other ureteral calculi. There were some stone fragments within the ileal conduit, which would likely come down during the surgery. I felt comfortable with removing her nephrostomy catheter and ureteral stent at that time. These were removed on postop day #1. Afterwards, she was feeling well and her labs looked good. She did not have any evidence of bleeding. She was discharged home without any further problems. DISPOSITION: Discharge to home. DISCHARGE CONDITION: Good. DISCHARGE MEDICATIONS: Include resuming all of her home medications. In addition, she was given tramadol 50 mg as needed as well as Colace 100 mg p.o. b.i.d. I will plan to see her back in approximately 2 to 3 weeks for a postop check, at which time, we will discuss whether or not she wants to proceed with shockwave lithotripsy to try and fragment the remaining upper pole stone. I have gone over all of her discharge instructions otherwise. Job ID: [id number]
[2019-02-16 13:11] LABS: CA Phosphate 70 % (.); Color Tan (.); Comment Note: (.); Mg Ammon Phos 30 % (.); Stone Weight 57.9 mg (.)
--- NOTE | 2019-02-18 06:18 | PQF ---
HOA CASAS ROBIN MD [id number] [facility] B 3328 [id number] CLINICAL DOCUMENTATION CLARIFICATION FORM: POST DISCHARGE Addendum to original discharge summary date: ____ Late entry note date: __ DATE: 02/18/2019 ATTN: LELA MENDIETA MD Please exercise your independent, professional judgment in responding to the clarification form. Clinical indicators are provided on the bottom of this form for your review Please check appropriate box(s): [ ] Acute Renal Failure (ARF) / Acute Kidney Injury (DONTE) [ ] Acute Tubular Necrosis (ATN) [ ] Acute Cortical Necrosis [ ] Acute Medullary Necrosis [ ] Other Etiology or underlying conditions related to the diagnosis of ARF/ DONTE: [ ] Acute Interstitial Nephritis (AIN) [ ] Other: [X ] Other diagnosis __CKD stage III [ ] Unable to determine In addition, please specify: Present on Admission (POA): [X ] Yes [ ] No [ ] Unable to determine National Kidney Foundation Guidelines for CKD Staging Stage I Kidney damage with normal or increased GFRGFR > 90 Stage IIKidney damage with mildly decreased GFRGFR 60-89 Stage III Kidney damage with moderately decreased GFRGFR 30-59 Stage IVKidney damage with severely decreased GFRGFR 16-29 Stage VKidney failureGFR<15 ESRDEnd Stage Renal DiseaseOn dialysis Acute Renal Failure/Acute Kidney Failure defined as: Increases in SCr by (>) 0.3 mg/dl within 48 hours OR- Increases in SCr by (>) 1.5 times baseline, known or presumed to have occurred within the prior 7 days OR- Urine volume < 0.5 ml/kg/hour for 6 hours (KDIGO supplement 2012 for RIFLE/LEYDA criteria) For continuity of documentation, please document condition throughout progress notes and discharge summary. Thank You. CLINICAL INDICATORS - SIGNS / SYMPTOMS / LABS - Creatinine: 1.33H- Laboratory , 02/12 - Left Nephrolithiasis- OP report, 02/11, LELA MENDIETA MD RISK FACTORS - Hypertensive heart disease without heart failure-H&P, 01/11,LELA MENDIETA MD - Left sided-percutaneous nephrolithotomy-OP report, 01/11, LELA MENDIETA MD TREATMENTS: -Sodium chloride.IV-MAR, 02/12 (This form is maintained as a part of the permanent medical record) 2014 [employer] All Rights Reserved Cass Garcia [not provided] [not provided] MTDD
== END 2019-02-12 17:13 | disposition home or self-care (01) | DRG 661 ==
LOC: SURG A 02-11 05:57 → SURG B 02-11 12:04
PROVIDERS: ADMIT Urology; ATTEND Urology
PROC: 0TC43ZZ Extirpation of Matter from Left Kidney Pelvis, Percutaneous Approach (ICD-10-PCS; principal; 2019-02-11)
DX: N13.2 Hydronephrosis with renal and ureteral calculous obstruction (principal); M81.0 Age-related osteoporosis without current pathological fracture; E78.5 Hyperlipidemia, unspecified; N18.3 Chronic kidney disease, stage 3 (moderate); I13.10 Hypertensive heart and chronic kidney disease without heart failure, with stage 1 through stage 4 chronic kidney disease, or unspecified chronic kidney disease; Z85.51 Personal history of malignant neoplasm of bladder; Z90.710 Acquired absence of both cervix and uterus
CPT/HCPCS: 36415; 74018; 74176; 76000; 80048; 82365; 85025; 86850; 86900; 86901; 88300; C1758; C1769; J0690; J0696; J1100; J1580; J2001; J2405; J2550; J2704; J3010; J3490

== ENCOUNTER 2019-01-27 09:05 | Outpatient (CLI) | payer MEDICARE, BC ==
[2019-01-27 12:23] LABS: Bilirubin Negative (Negative); Blood, Urine Large (Negative); Glucose, Urine (Dipstick) Negative (Negative); Leukocyte Small (Negative); Nitrite Negative (Negative); Protein, Urine (Dipstick) 100 mg/dL (Neg-Trace); Urobilinogen 0.2 mg/dL (Less than 2)
[2019-01-27 12:25] LABS: PTT 34.3 SEC (22.9-36.1); Prothrombin Time 12.8 SEC (12.0-14.7)
[2019-01-27 12:28] LABS: Hemoglobin 11.5 g/dL (12.0-16.0); Mean Corpuscular HGB CONC 31.2 g/dL (32.0-36.0); Mean Corpuscular Hemoglobin 25.9 pg (27.0-31.0); Mean Corpuscular Volume 82.9 fL (78.0-98.0); Mean Platelet Volume 8.4 fL (7.4-10.4); Platelet Count 267 thou/uL (130-400); RBC Distribution Width 14.5 % (11.5-14.5); Red Blood Cell (RBC) Count 4.44 mill/uL (4.20-5.40); White Blood Cell (WBC) Count 4.5 thou/uL (4.8-10.8)
[2019-01-27 12:33] LABS: Clarity CLOUDY (Clear)
[2019-01-27 12:35] LABS: Anion Gap 11 mmol/L (10-20); BUN (Urea Nitrogen) 13 mg/dL (9.8-20.1); Bacteria/HPF None Seen HPF (None Seen); Calc. Creatinine Clearance 0 mL/min (70-130); Calcium 9.9 mg/dL (7.8-10.44); Carbon Dioxide 24 mmol/L (23-31); Chloride 109 mmol/L (98-107); Estimated GFR-MDRD 80; Glucose 103 mg/dL (83-110); Potassium 3.8 mmol/L (3.5-5.1); RBC/HPF Greater than 50 HPF (0-3); Sodium 140 mmol/L (136-145); Squamous Epithelial None Seen HPF (0-3)
--- NOTE | 2019-01-27 17:01 | EKG ---
Test Reason : Blood Pressure : / mmHG Vent. Rate : 074 BPM Atrial Rate : 074 BPM P-R Int : 150 ms QRS Dur : 070 ms QT Int : 382 ms P-R-T Axes : 074 019 023 degrees QTc Int : 424 ms Normal sinus rhythm Cannot rule out Anterior infarct , age undetermined Abnormal ECG Confirmed by BALDOMERO FERMIN ([id number]) on 01/27/2019 5:01:18 PM Referred By: GAYATRI Confirmed By:BALDOMERO FERMIN
== END 2019-01-27 09:06 | disposition home or self-care (01) ==
LOC: LABBT 09:05
PROVIDERS: ATTEND Urology
DX: Z01.818 Encounter for other preprocedural examination (principal); N20.2 Calculus of kidney with calculus of ureter
CPT/HCPCS: 80048; 81001; 85027; 85610; 85730; 87077; 87086; 87186; 93005; 93010

== ENCOUNTER 2019-09-21 09:37 | Outpatient (CLI) | payer MEDICARE, BC ==
--- NOTE | 2019-09-21 10:02 | RAD ---
EXAM: Single view of the abdomen HISTORY: Calculus of the kidney and ureter COMPARISON: CT abdomen/pelvis 02/12/2019 and KUB 02/11/2019 FINDINGS: Single view of the abdomen shows a nonspecific, nonobstructive bowel gas pattern. 3 adjacen t calcifications are seen in the right abdomen measuring up to 3.6 cm in size. These calcifications may be within the patient's urostomy. No calcifications are seen projecting over either renal shadow. Degenerative changes are seen in the spine. IMPRESSION: Likely urostomy calcifications
== END 2019-09-21 09:38 | disposition home or self-care (01) ==
LOC: RAD 09:37
PROVIDERS: ATTEND Urology
DX: N20.2 Calculus of kidney with calculus of ureter (principal)
CPT/HCPCS: 74018

== ENCOUNTER 2020-12-05 09:13 | Outpatient (CLI) | payer MEDICARE, BC ==
[2020-12-05 10:08] LABS: Bilirubin Neg (Negative); Blood, Urine 150 (Negative); Clarity Cloudy (Clear); Glucose, Urine (Dipstick) Normal (Negative); Ketone, Urine Negative (Negative); Leukocyte 500 (Negative); Nitrite Negative (Negative); Protein, Urine (Dipstick) 100 mg/dl (Neg-Trace); Urobilinogen Normal mg/dL (Less than 2)
[2020-12-05 10:13] LABS: Hemoglobin 11.7 g/dL (12.0-15.5); Mean Corpuscular HGB CONC 30.1 g/dL (32.0-36.0); Mean Corpuscular Hemoglobin 25.3 pg (27.0-33.0); Mean Corpuscular Volume 84.2 fl (81.6-98.3); Mean Platelet Volume 10.5 fl (7.4-10.4); Platelet Count 210 10x3/uL (150-450); RBC Distribution Width 14.7 % (11.5-14.5); Red Blood Cell (RBC) Count 4.62 10x6/uL (3.90-5.03); White Blood Cell (WBC) Count 5.7 10x3/uL (3.5-10.5)
[2020-12-05 10:29] LABS: Anion Gap 14 mmol/L (10-20); BUN (Urea Nitrogen) 22 mg/dL (9.8-20.1); Calc. Creatinine Clearance 0 mL/min (70-130); Calcium 10.4 mg/dL (7.8-10.44); Carbon Dioxide 22 mmol/L (23-31); Chloride 109 mmol/L (98-107); Glucose 92 mg/dL (83-110); Potassium 4.7 mmol/L (3.5-5.1); Sodium 140 mmol/L (136-145)
[2020-12-05 10:35] LABS: PTT 25.9 sec (22.0-33.0); Prothrombin Time 10.8 sec (9.5-12.1)
[2020-12-05 10:55] LABS: RBC/HPF 0-3 HPF (0-3); WBC/HPF 0-3 HPF (0-3)
[2020-12-05 10:56] LABS: Bacteria/HPF 3+ HPF (None Seen); Squamous Epithelial 0-3 HPF (0-3); Triple Phosphate Crystal Rare HPF (None Seen)
[2020-12-06 01:01] LABS: SARS-CoV-2 PCR by NAA Not Detected (NotDetected)
== END 2020-12-05 09:14 | disposition home or self-care (01) ==
LOC: LABBT 09:13
PROVIDERS: ATTEND Urology
DX: Z01.818 Encounter for other preprocedural examination (principal); N20.2 Calculus of kidney with calculus of ureter; C67.9 Malignant neoplasm of bladder, unspecified; Z93.6 Other artificial openings of urinary tract status; Z98.890 Other specified postprocedural states; Z20.822 Contact with and (suspected) exposure to COVID-19
CPT/HCPCS: 71046; 80048; 81001; 85027; 85610; 85730; 87086; 93005; U0003; U0005; 87077; 87186; 93010

== ENCOUNTER 2020-12-07 07:55 | Day surgery (SDC) | payer MEDICARE, BC ==
[2020-12-06 13:03] VITALS: BMI 19.8
[2020-12-07] MEDS ORDERED: Levofloxacin 500 mg/D5W 100 ml Premix Bag ONE (08:13)
[2020-12-07] MEDS ORDERED: Fentanyl 100 MCG/2 ML VIAL ONE (08:44)
[2020-12-07] MEDS ORDERED: Famotidine/PF 20 mg/2ml Vial ONE (08:45)
[2020-12-07] MEDS ORDERED: ePHEDrine 50 MG/ML VIAL ONE (09:58)
[2020-12-07] MEDS ORDERED: Dexamethasone 20 MG/5 ML VIAL ONE (09:58)
[2020-12-07] MEDS ORDERED: Lidocaine 1% PF 5 ML VIAL ONE (09:58)
[2020-12-07] MEDS ORDERED: Ondansetron PF 4 MG/2 ML Vial ONE (09:58)
[2020-12-07] MEDS ORDERED: PROPOFOL 200 MG/20 ML VIAL ONE (09:58)
== END 2020-12-07 13:39 | disposition home or self-care (01) ==
LOC: SDC 07:55
PROVIDERS: ATTEND Urology
PROC: 0TCB8ZZ Extirpation of Matter from Bladder, Via Natural or Artificial Opening Endoscopic (ICD-10-PCS; principal; 2020-12-07)
DX: N20.2 Calculus of kidney with calculus of ureter (principal); E78.5 Hyperlipidemia, unspecified; M81.0 Age-related osteoporosis without current pathological fracture; I11.9 Hypertensive heart disease without heart failure; Z85.51 Personal history of malignant neoplasm of bladder; Z87.891 Personal history of nicotine dependence; Z79.899 Other long term (current) drug therapy; Z90.6 Acquired absence of other parts of urinary tract; Z93.6 Other artificial openings of urinary tract status
CPT/HCPCS: J1100; J1956; J2405; J2704; J3010; J3490; S0028

== ENCOUNTER 2021-01-08 12:02 | Outpatient (CLI) | payer MEDICARE, BC ==
[2021-01-08 14:36] LABS: Hemoglobin 11.3 g/dL (12.0-15.5); Mean Corpuscular HGB CONC 30.7 g/dL (32.0-36.0); Mean Corpuscular Hemoglobin 25.5 pg (27.0-33.0); Mean Corpuscular Volume 83.1 fl (81.6-98.3); Mean Platelet Volume 10.9 fl (7.4-10.4); PTT 25.6 sec (22.0-33.0); Platelet Count 215 10x3/uL (150-450); RBC Distribution Width 14.5 % (11.5-14.5); Red Blood Cell (RBC) Count 4.43 10x6/uL (3.90-5.03)
[2021-01-08 14:37] LABS: Anion Gap 13 mmol/L (10-20); BUN (Urea Nitrogen) 19 mg/dL (9.8-20.1); Calc. Creatinine Clearance 0 mL/min (70-130); Calcium 10.3 mg/dL (7.8-10.44); Carbon Dioxide 23 mmol/L (23-31); Chloride 108 mmol/L (98-107); Glucose 85 mg/dL (83-110); Potassium 4.9 mmol/L (3.5-5.1); Sodium 139 mmol/L (136-145)
[2021-01-08 14:55] LABS: Bilirubin Neg (Negative); Blood, Urine 50 (Negative); Clarity Cloudy (Clear); Glucose, Urine (Dipstick) Normal (Negative); Ketone, Urine Negative (Negative); Leukocyte 500 (Negative); Nitrite Negative (Negative); Protein, Urine (Dipstick) 30 mg/dl (Neg-Trace); Urobilinogen Normal mg/dL (Less than 2)
[2021-01-08 15:24] LABS: RBC/HPF 0-3 HPF (0-3)
[2021-01-08 15:25] LABS: Bacteria/HPF 2+ HPF (None Seen); Squamous Epithelial 0-3 HPF (0-3); Triple Phosphate Crystal 1+ HPF (None Seen)
[2021-01-09 11:13] LABS: SARS-CoV-2 PCR by NAA Not Detected (NotDetected)
== END 2021-01-08 12:03 | disposition home or self-care (01) ==
LOC: LABBT 12:02
PROVIDERS: ATTEND Family Medicine
DX: Z01.812 Encounter for preprocedural laboratory examination (principal); C67.9 Malignant neoplasm of bladder, unspecified; N20.9 Urinary calculus, unspecified; Z20.822 Contact with and (suspected) exposure to COVID-19
CPT/HCPCS: 80048; 81001; 85027; 85610; 85730; 87086; U0003; U0005

== ENCOUNTER 2021-01-11 08:52 | Day surgery (SDC) | payer MEDICARE, BC ==
[2021-01-11] MEDS ORDERED: Levofloxacin 500 mg/D5W 100 ml Premix Bag ONE (10:40)
[2021-01-11] MEDS ORDERED: B & O 30 MG SUPP ONE (12:37)
[2021-01-11] MEDS ORDERED: PROPOFOL 200 MG/20 ML VIAL ONE (12:46)
[2021-01-11] MEDS ORDERED: Ondansetron PF 4 MG/2 ML Vial ONE (12:46)
[2021-01-11] MEDS ORDERED: Lidocaine 1% PF 5 ML VIAL ONE (12:46)
[2021-01-11] MEDS ORDERED: Fentanyl 100 MCG/2 ML VIAL ONE (12:50)
[2021-01-18 13:37] LABS: Color Tan (.); Mg Ammon Phos 70 % (.); Stone Weight 7986 mg (.)
== END 2021-01-11 15:30 | disposition home or self-care (01) ==
LOC: SDC 08:52
PROVIDERS: ATTEND Urology
PROC: 0TCB8ZZ Extirpation of Matter from Bladder, Via Natural or Artificial Opening Endoscopic (ICD-10-PCS; principal; 2021-01-11)
DX: N20.2 Calculus of kidney with calculus of ureter (principal); E78.5 Hyperlipidemia, unspecified; M81.0 Age-related osteoporosis without current pathological fracture; I11.9 Hypertensive heart disease without heart failure; Z85.51 Personal history of malignant neoplasm of bladder; Z87.891 Personal history of nicotine dependence; Z79.899 Other long term (current) drug therapy; Z90.6 Acquired absence of other parts of urinary tract; Z93.6 Other artificial openings of urinary tract status
CPT/HCPCS: 82365; 88300; J1956; J2405; J2704; J3010

== ENCOUNTER 2021-07-31 09:50 | Outpatient (CLI) | payer MEDICARE, BC | END 2021-07-31 09:51 | disposition home or self-care (01) | LOC: RAD 09:50 | PROVIDERS: ATTEND Urology | DX: N20.2 Calculus of kidney with calculus of ureter (principal); I70.90 Unspecified atherosclerosis; Z98.890 Other specified postprocedural states; C67.9 Malignant neoplasm of bladder, unspecified | CPT/HCPCS: 74018; 88112; 88305 ==

== ENCOUNTER 2022-10-24 10:10 | Outpatient (CLI) | payer MEDICARE, BC | END 2022-10-24 10:11 | disposition home or self-care (01) | LOC: RAD 10:10 | PROVIDERS: ATTEND Urology | DX: N20.2 Calculus of kidney with calculus of ureter (principal); M46.1 Sacroiliitis, not elsewhere classified; J98.4 Other disorders of lung | CPT/HCPCS: 74018; 88112 ==